=== PATIENT | male | born 1945 | race Caucasian/White ===

== ENCOUNTER 2019-08-18 13:05 | Outpatient (CLI) | payer MEDICARE, SELFPAY ==
--- NOTE | 2019-08-18 13:09 | CT_ITS ---
WS: [id number] CT LUNG CANCER SCREENING DLP: 87.5 mGy.cm DIvol: 2.43 mGy CLINICAL INFORMATION SCREENING VISIT: Baseline COMPARISON: None available. FINDINGS Diagnostic quality: Satisfactory Comments: None. Lung Nodules: Anterior RIGHT lower lobe slightly spiculated 6 mm pulmonary nodule with adjacent groun dglass attenuation. Image 313 of series 3. No additional suspicious nodules. No endobronchial lesions . There is a small amount of debris in the proximal RIGHT lower lobe bronchus. Lungs: Benign granuloma 8 mm RIGHT lower lobe. Mild biapical pleural thickening and scarring. Heart: Heart is normal size. Prior aortic valve replacement. There is extensive calcification in the [place] coronary arteries. Other findings: Atherosclerosis thoracic aorta. Small benign mediastinal and hilar lymph nodes. Pulmo nary artery size is normal. Small hiatal hernia. Mild increase in thoracic kyphosis. CT/CT lung screening [id number] IMPRESSION: LUNG-RADS: 3-Probably Benign FOLLOW UP: 6 Month LDCT
== END 2019-08-18 13:06 | disposition home or self-care (01) ==
LOC: CT 13:06
PROVIDERS: PCP Internal Medicine; Visit Provider Internal Medicine
DX: Z12.2 Encounter for screening for malignant neoplasm of respiratory organs (principal); F17.218 Nicotine dependence, cigarettes, with other nicotine-induced disorders
CPT/HCPCS: G0297

== ENCOUNTER 2019-12-15 12:01 | Outpatient (CLI) | payer MEDICARE, SELFPAY ==
--- NOTE | 2019-12-15 12:07 | CT_ITS ---
WS: [id number] CT ABDOMEN PELVIS TECHNIQUE: Contrast-enhanced CT of the abdomen and pelvis with coronal and sagittal reformatted image s. CLINICAL INFORMATION: GENERALIZED ABDOMINAL PAIN COMPARISON: None. DLP: 562.[address] scans at [facility] use at least one of these dose optimization techniques: automat ed exposure control; mA and/or kV adjustment per patient size (includes targeted exams where dose is matched to clinical indication); or iterative reconstruction. FINDINGS: Mild diffuse fatty infiltration liver. Normal portal vein and splenic vein. Normal gallbladder. Adren al glands are normal. Normal renal parenchymal enhancement. No hydronephrosis. Small right renal cyst measuring 8 mm. Lung bases are well aerated. Noncalcified nodule right lower lobe measuring 4 mm. No rmal GE junction. Normal pancreas. Normal spleen. Small splenule. Adrenal glands are normal. Prominen t heterogeneously enhancing prostate measuring 3.9 x 5.1 CM. Sigmoid diverticulosis. No evidence of acute diverticulitis. No evidence of small or large bowel obst ruction. No pelvic lymphadenopathy. No inguinal lymphadenopathy. Dense aortic calcification. Proximal renal artery calcification. Normal caliber abdominal aorta. Normal lumbar spine. CT/CT abdomen pelvis w con* [id number] IMPRESSION: 1. No evidence of small or large bowel obstruction. 2. Sigmoid diverticulosis. No evidence of acute diverticulitis. 3. Heterogeneously enhancing enlarged prostate. Recommend correlation PSA. 4. Dense aortic calcification. No aneurysm. 5. Mild diffuse fatty infiltration liver. 6. No hydronephrosis in either kidney. 7. No abdominal or pelvic lymphadenopathy. 8. Noncalcified nodule right lower lobe laterally measuring 4 mm.
[2019-12-15 14:05] LABS: Blood Urea Nitrogen 18 mg/dL (8-23)
[2019-12-15] MEDS: iodixanol 320 mg/mL 100mL Btl IV (14:13)
[2019-12-15] MEDS: iohexol 300 mg/mL 50 mL Btl PO (14:13)
== END 2019-12-15 12:02 | disposition home or self-care (01) ==
LOC: CT 12:04
PROVIDERS: PCP Internal Medicine; Visit Provider Internal Medicine
DX: R10.84 Generalized abdominal pain (principal); K57.30 Diverticulosis of large intestine without perforation or abscess without bleeding; N40.0 Benign prostatic hyperplasia without lower urinary tract symptoms; I70.0 Atherosclerosis of aorta; K76.0 Fatty (change of) liver, not elsewhere classified; R91.1 Solitary pulmonary nodule
CPT/HCPCS: 36415; 74177; 82565; 84520

== ENCOUNTER 2019-12-15 12:06 | Outpatient (CLI) | payer MEDICARE, SELFPAY ==
--- NOTE | 2019-12-15 14:15 | USCV_ITS ---
Luisa Walters Age: 74 Gender: M : 1945 Exam Date: 12/15/2019 12:41 Ordering Phys: Kavon Irwin MD ([email or web address]) Technologist: Neri Phma [place]am [place] [facility] [place]: MURMUR Risk Factors: None Previous Vascular Surgery: None Right Brachial BP: / Left Brachial BP: / Right Left Velocity (cm/s) Spectral Plaque Velocity (cm/s) Spectral Plaque Syst/Diast Broadening Syst/Diast Broadening 66.20/ 16.50 Prox CCA 35.30 / 8.80 75.00/ 20.90 Mid CCA 33.70 / 10.40 89.30/ 19.80 Hetro Distal CCA 42.00 / 10.40 Hetro 209.10/50.30 Hetro Prox ICA 185.80/ 59.70 Hetro 273.40/68.40 Hetro Mid ICA 608.00/ 248.30 Hetro 232.30/58.70 Distal ICA 495.10/ 202.20 Hetro 203.50 ECA 258.30 3.06 ICA/CCA 14.48 Antegrade Vertebral Antegrade 29.00/ 7.50 cm/s 75.60/ 24.20 cm/s Bi Subclavian Bi 144.4 145.5 0 0 FINDINGS Moderate to heavy heterogeneous plaques of the right bifurcation and internal carotid artery Heavy heterogeneous plaques at the left bifurcation and internal carotid artery Mild diffuse plaques in the common carotid arteries bilaterally Antegrade flow in the vertebral arteries bilaterally Elevated Doppler velocities in the external carotid arteries bilaterally CONCLUSIONS 1. Moderate to heavy heterogeneous plaques of the right bifurcation and internal carotid artery with velocity elevation consistent with 50-79% stenosis. 2.Heavy heterogeneous plaques at the left bifurcation and internal carotid arterywith velocity elevation consistent with 80-99% stenosis. 3.Elevated velocity in the external carotid arteries bilaterally, suggestive of hemodynamically significant stenosis. 4. The internal carotid arteries appears to be diffusely diseased bilaterally Compared to the study from 08/05/2014, there is significant worsening of the stenosis bilaterally Dr Kavon Irwin MD [facility] (Electronically Signed) Final Date: 16 December 2019 09:05 S
== END 2019-12-15 12:07 | disposition home or self-care (01) ==
PROVIDERS: PCP Internal Medicine; Visit Provider Internal Medicine Cardiovascular Disease
DX: I65.23 Occlusion and stenosis of bilateral carotid arteries (principal)
CPT/HCPCS: 93880

== ENCOUNTER 2019-12-24 12:46 | Outpatient (CLI) | payer MEDICARE, SELFPAY ==
--- NOTE | 2019-12-24 13:00 | CT_ITS ---
WS: [id number] CTA HEAD AND NECK TECHNIQUE: Contrast enhanced CTA of the head and neck with coronal and sagittal reformatted images an d maximum intensity projection (MIP) images. NASCET criteria utilized. CLINICAL INFORMATION: severe carotid artery stenosis COMPARISON: Ultrasound December 15, 2019 DLP: 2010.[address] scans at [facility] use at least one of these dose optimization techniques: automat ed exposure control; mA and/or kV adjustment per patient size (includes targeted exams where dose is matched to clinical indication); or iterative reconstruction. FINDINGS: RIGHT: Right common carotid artery is patent. Moderate calcified atheromatous disease right carotid b ulb extending into the ICA. Right ICA stenosis measures approximately 46%. LEFT: Left common carotid artery is patent. Dense calcified atheromatous disease left carotid bulb ex tending into the ICA. Left ICA demonstrates high-grade proximal stenosis with a tiny residual lumen m easuring 0.8 mm. Left ICA stenosis measures 82%. Left ICA is patent to the skull base. INTRACRANIAL CTA: Both vertebral arteries are hypoplastic/occluded proximally. Small amount of flow in the left mid [place]yland tebral artery and bilateral flow in the distal vertebral arteries. Distal vertebral arteries terminat e in the posterior inferior cerebellar arteries. Dominant anterior circulation. Tiny hypoplastic basi lar artery. Normal vascularity to the HEAD OF CYTOGENETICS territory bilaterally. Both ICAs are patent at the skull base. Cavernous carotid atheromatous disease. Patent anterior commu nicating artery. Normal vascularity to the FLORA and MCA territories bilaterally. No evidence of high-g rade proximal stenosis or aneurysm. Paranasal sinuses are well aerated. Mastoid air cells are well aerated. Mild small vessel changes. Mo derate parenchymal volume loss. No extra-axial fluid collections. Lung apices are well aerated. Aorti c arch calcification. Mild spondylitic changes cervical spine. CT/CT angio headneck* [id number] IMPRESSION: 1. High-grade left ICA stenosis approximately 7 mm distal to the bifurcation m easuring 82%. Tiny residual lumen. Left ICA is patent to the skull base. Dense calcified atheromatous disease left carotid bulb. 2. Moderate calcified atheromatous disease right carotid bulb with 46% proxima l ICA stenosis. 3. Both vertebral arteries are hypoplastic with no significant flow proximally . Reconstitution mid left vertebral artery and distal right vertebral artery wi th dominant anterior circulation. Both vertebral arteries terminate in the post erior inferior cerebellar arteries. Hypoplastic basilar artery. 4. Intracranial CTA is otherwise normal. No high-grade proximal stenosis or an eurysm. 5. Mild small vessel changes with moderate parenchymal volume loss on the nonc ontrast imaging.
[2019-12-24] MEDS: iodixanol 320 mg/mL 100mL Btl IV (13:24)
== END 2019-12-24 12:47 | disposition home or self-care (01) ==
LOC: RADWPI 12:49
PROVIDERS: PCP Internal Medicine; Visit Provider Internal Medicine Cardiovascular Disease
DX: I65.23 Occlusion and stenosis of bilateral carotid arteries (principal)
CPT/HCPCS: 70496; 70498; Q9967

== ENCOUNTER → 2020-01-12 07:48 | Outpatient (BNVA) | payer MEDICARE, SELFPAY | PROVIDERS: PCP Internal Medicine; Referring Provider Internal Medicine; Visit Provider Urology | DX: N40.1 Benign prostatic hyperplasia with lower urinary tract symptoms (principal); R97.20 Elevated prostate specific antigen [PSA] | CPT/HCPCS: 81003 ==

== ENCOUNTER 2020-03-02 13:37 | Day surgery (SDC) | payer MEDICARE, SELFPAY | END 2020-03-02 15:00 | disposition home or self-care (01) | LOC: OPS 12-08 14:58 | PROVIDERS: PCP Internal Medicine; Visit Provider Thoracic Surgery (Cardiothoracic Vascular Surgery) | DX: Z01.818 Encounter for other preprocedural examination (principal) | CPT/HCPCS: 87635 ==

== ENCOUNTER 2020-03-08 08:34 | Inpatient (IN) | payer MEDICARE, SELFPAY ==
[2020-03-02 11:32] VITALS: BMI 24.3
[2020-03-02 12:22] LABS: Add Urine Microscopic? NO; Basophils # 0.1 10^3/uL (0.0-0.1); Basophils % 0.9 %; Eosinophils # 0.3 10^3/uL (0.0-0.8); Eosinophils % 3.9 %; Hematocrit 41.8 % (42.0-52.0); Hemoglobin 14.2 g/dL (11.7-16.6); Lymphocytes # 1.9 10^3/uL (0.8-4.8); Lymphocytes % 21.8 %; Mean Corpuscular Hemoglobin 32.4 pg (28.0-34.0); Mean Corpuscular Volume 95.4 fL (80-94); Mean Platelet Volume 9.5 fL (7.4-10.4); Monocytes # 0.9 10^3/uL (0.2-0.9); Monocytes % 10.6 %; Neutrophils # 5.46 10^3/uL (1.8-7.7); Neutrophils % 62.6 %; Nucleated Red Blood Cells % 0 %; Platelet Count 248 10^3/cmm (130-400); Red Blood Count 4.38 10^6/uL (4.1-5.3); Red Cell Distribution Width 11.5 % (12.1-15.1); White Blood Count 8.7 10^3/uL (4.0-10.0)
[2020-03-02 12:33] LABS: Bilirubin Urine Neg (Negative); Blood Urine Neg (Negative); Glucose Urine UA Norm (Normal); Ketones Urine Negative (Negative); Leukocyte Esterase Urine Negative (Negative); Nitrate Urine Negative (Negative); Protein Urine Neg (Negative); Urine Appearance Clear (CLEAR); Urine Color Straw (Yellow); Urobilinogen Urine Norm (Negative); pH Urine 7 (5-7)
[2020-03-02 12:37] LABS: Anion Gap 14.5 (5-19); Blood Urea Nitrogen 19 mg/dL (8-23); Calcium 10.1 mg/dL (8.5-10.5); Carbon Dioxide 26 mmol/L (22-29); Chloride 97 mmol/L (98-107); Glucose 130 mg/dL (65-115); Osmolality Calculated 280 mOsm/kg (285-295); Potassium 4.5 mmol/L (3.5-5.1); Sodium 133 mmol/L (136-145)
--- NOTE | 2020-03-02 12:40 | P.ANESASSM_ITS ---
Pre-Anesthetic Assessment Pre-Anesthetic Assessment: Height/Weight: Height 1.73 m Weight 72.575 kg Preop Diagnosis: Left carotid artery stenosis Proposed Procedure: Operation Date: 03/08/20 07:00 Proposed Procedures p Carotid Endarterectomy(Left) - Zane Duarte MD Familial anesthetic complications: None Social: Social History: Tobacco Exam: Pre-Anes Outpt Exam: alert, oriented x 3, clear to auscultation bilaterally and regular rate & rhythm Airway: Cervical ROM: WNL MP: 3 Dentition: Chipped (bottom and top) and Other (missing) CV/HEM: CV/HEM: HTN Comments: aortic valve replaced twice - last time 2015 Metabolic: Metabolic: DM and Hyperlipidemia Anesthetic Plan: ASA status: 4 Anesthesia: General Other: A- line Risk of > 500 ml blood loss (7ml/kg in children): No PFSH Anesthesia PFSH: Medical History ASHD (arteriosclerotic heart disease) BPH loc w urin obs/LUTS Carotid stenosis, bilateral COPD (chronic obstructive pulmonary disease) Diabetes Elevated PSA 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 Mother , at age 80 No problems noted. Other Diabetes Social History Smoking and tobacco status: current every day smoker Alcohol intake: never Marital status: Current occupational status: retired History of recent travel: No Data Anesthesia CBC & Chem 7: 03/02/20 12:05 03/02/20 12:05 Other Labs: Laboratory Results - last 48 hr 03/02/20 03/02/20 03/02/20 12:05 12:05 12:05 WBC 8.7 RBC 4.38 Hgb 14.2 Hct 41.8 L MCV 95.4 H MCH 32.4 MCHC 34.0 RDW 11.5 L Plt Count 248 MPV 9.5 Neut % (Auto) 62.6 Lymph % (Auto) 21.8 [place] % (Auto) 10.6 Eos % (Auto) 3.9 Baso % (Auto) 0.9 Neut # (Auto) 5.46 Lymph # (Auto) 1.9 [place] # (Auto) 0.9 Eos # (Auto) 0.3 Baso # (Auto) 0.1 Nucleated RBC % (auto) 0 Nucleated RBCs # 0.0 PT 13.50 INR 1.00 Sodium Potassium Chloride Carbon Dioxide Anion Gap BUN Creatinine GFR Calculation Glucose Calculated Osmolality Calcium Urine Color Straw Urine Appearance Clear Urine pH 7 Ur Specific [place] 1.010 Urine Protein Neg Urine Glucose (UA) Norm Urine Ketones Negative Urine Blood Neg Urine Nitrate Negative Urine Bilirubin Neg Urine Urobilinogen Norm Ur Leukocyte Esterase Negative 03/02/20 12:05 WBC RBC Hgb Hct MCV MCH MCHC RDW Plt Count MPV Neut % (Auto) Lymph % (Auto) [place] % (Auto) Eos % (Auto) Baso % (Auto) Neut # (Auto) Lymph # (Auto) [place] # (Auto) Eos # (Auto) Baso # (Auto) Nucleated RBC % (auto) Nucleated RBCs # PT INR Sodium 133 L Potassium 4.5 Chloride 97 L Carbon Dioxide 26 Anion Gap 14.5 BUN 19 Creatinine 1.1 GFR Calculation Not Reportable Glucose 130 H Calculated Osmolality 280 L Calcium 10.1 Urine Color Urine Appearance Urine pH Ur Specific [place] Urine Protein Urine Glucose (UA) Urine Ketones Urine Blood Urine Nitrate Urine Bilirubin Urine Urobilinogen Ur Leukocyte Esterase Cardiac Studies: No Data to Display
--- NOTE | 2020-03-08 | SCC_ITS ---
Procedure Done: 1. Aborted right carotid endarterectomy 2. Right internal jugular access with temporary pacemaker implantation 26.6 seconds of fluoroscopic guidance, for a cumulative dose of 4.77 mGy, was provided to Dr. Duarte by the radiology department. C-arm images of the chest were saved for the patient's permanent record. XAVIERD
--- NOTE | 2020-03-08 05:44 | XRR_ITS ---
PROCEDURE INFORMATION: Exam: XR Chest, 2 Views Exam date and time: 03/08/2020 6:23 AM Age: 74 years old Clinical indication: Pre-operative exam; Cardiovascular screening and respiratory screening exam; Prior surgery; Surgery type: Heart; Additional info: Preop for carotid endarterectomy TECHNIQUE: Imaging protocol: XR of the chest Views: 2 views. COMPARISON: CR Chest 2 views* [id number] 04/10/2018 10:59 AM FINDINGS: Lungs: Tiny benign granulomas are present in the right base. There are no acute pulmonary infiltrates. Pleural space: Unremarkable. No pleural effusion. No pneumothorax. Heart/Mediastinum: The patient has undergone aortic valve replacement. The heart is not enlarged. There is calcification of the aorta. Bones/joints: Unremarkable. XR/XR chest 2V* [id number] IMPRESSION: No significant cardiopulmonary abnormality.
[2020-03-08 06:11] VITALS: BP 163/70; PULSE 61; RESP 18; TEMP 36.1; O2SAT 96
[2020-03-08 06:17] LABS: Glucose Point of Care 215 mg/dL (70-110)
--- NOTE | 2020-03-08 06:28 | PM.HP ---
Providers/Chief Complaint Primary Care Provider: Annabel Medina MD Chief Complaint: Carotid Stenosis History of Present Illness Luisa Walters is a 74 year old male whom I last saw in clinic on January [address] Irwin for evaluation of bilateral carotid disease. He has had prior aortic valve surgery at the [facility] in 2006 and subsequent redo valve surgery in 2016 at [facility]. He has been followed by Dr. Irwin for quite some time and is noted to have bilateral carotid bruits. Subsequent carotid duplex study of December 14 suggested high-grade velocities bilaterally. This prompted a CTA of the neck which was performed back in December 23. There was an 82% left ICA stenosis and a 46% right ICA stenosis, though visually, both stenoses appeared to be more substantial, particular given the elevated carotid velocities by duplex study. He is asymptomatic. He is a heavy tobacco user and continues to smoke unabated. Recommendation concerning left carotid endarterectomy as a prophylactic measure to reduce the statistical increased risk for spontaneous CVA related to his high-grade lesion was frankly discussed. He has conferred with his daughter, in [place]. He does wish to proceed with surgery and presents today for planned procedure. Review of Systems Const: Denies: fever(s), chills, change in appetite, change in weight, fatigue or night sweats Eyes: Denies: change in vision or blurry vision ENMT: Denies: odynophagia or hoarseness Card: Reports: dyspnea on exertion; Denies: chest pain, palpitations, irregular heart rhythm or edema Resp: Denies: dyspnea or productive cough GI: Denies: abdominal pain, nausea, vomiting, dysphagia, heartburn or change in bowel habits : Denies: difficulty urinating, dysuria, urinary frequency, urinary urgency or urinary hesitancy Musc: Reports: back pain Skin/Breast: Denies: rash Neuro: Denies: headache(s), numbness in extremities, weakness in extremities or sensory changes Psych: Denies: anxiety, depression or change in appetite Endo: Denies: polyuria, polydipsia or cold intolerance [place]/Lymph: Reports: easy bruising and easy bleeding Medications/Allergies Home Medications Medication Instructions Recorded Confirmed Last Taken Type aspirin 81 mg tablet,delayed 162 mg PO DAILY tab 05/28/19 03/08/20 03/08/20 History release glyburide 2.5 mg tablet 2.5 mg PO DAILY 05/28/19 03/08/20 03/07/20 History multivitamin 1 tab PO DAILY 05/28/19 03/08/20 03/07/20 History omega-3 fatty acids 1,000 mg 1,000 mg PO DAILY 05/28/19 03/08/20 03/07/20 History capsule amlodipine 10 mg tablet 10 mg PO DAILY #90 tab 07/29/19 03/08/20 03/08/20 Rx carvedilol 25 mg tablet 25 mg PO BID #90 tab 09/22/19 03/08/20 03/08/20 04:30 Rx simvastatin 20 mg tablet 20 mg PO DAILY #90 tab 12/01/19 03/08/20 03/07/20 Rx tamsulosin 0.4 mg capsule 0.4 mg PO BID #60 cap 01/12/20 03/08/20 03/07/20 Rx chlorthalidone 25 mg tablet See Rx Instructions .ROUTE 02/17/20 03/08/20 03/07/20 Rx .COMPLEX #90 tablet hydralazine 50 mg PO DAILY 03/02/20 03/08/20 03/07/20 History lisinopril 40 mg PO DAILY 03/02/20 03/08/20 03/08/20 History Allergies Allergy/AdvReac Type Severity Reaction Status Date / Time diltiazem Allergy Unknown unknown Verified 01/12/20 07:41 influenza virus vaccine Allergy Unknown unknown Verified 01/12/20 07:41 tvalpolly- PFSH Acute PFSH: Medical History ASHD (arteriosclerotic heart disease) BPH loc w urin obs/LUTS Carotid stenosis, bilateral COPD (chronic obstructive pulmonary disease) Diabetes Elevated PSA 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 Mother , at age 80 No problems noted. Other Diabetes Social History Smoking and tobacco status: current every day smoker Alcohol intake: never Marital status: Current occupational status: retired History of recent travel: No Vitals/I&O/Wt Last Vital Signs Temp 97.0 F L 03/08/20 06:11 Pulse 61 03/08/20 06:11 Resp 18 03/08/20 06:11 BP 163/70 03/08/20 06:11 Pulse Ox 96 03/08/20 06:11 Physical Exam Const: COMMON NORMALS: patient oriented x3 and alert ORIENTATION/CONSCIOUSNESS: Yes oriented to person, Yes oriented to place and Yes oriented to time HENMT: COMMON NORMALS: normocephalic HEAD & SCALP: normocephalic Neck/C-Spine: COMMON NORMALS: full ROM, supple and no JVD GENERAL: Yes trachea midline CAROTIDS: Yes bruit positive bilateral (High-pitched) CERVICAL SPINE: Yes cervical ROM normal Chest: COMMONS NORMALS: normal inspection of the chest (Well-healed sternotomy incision. Sternum stable.) and normal palpation of entire chest wall CHEST: Yes Symmetrical chest wall rise Resp: COMMON NORMALS: normal respiratory effort, No use of accessory muscles, clear to auscultation bilaterally and percussion normal EFFORT & INSPECTION: Yes able to speak in complete sentences and Yes symmetric chest movement AUSCULTATION: clear to auscultation bilaterally PERCUSSION: percussion normal Cardio: COMMON NORMALS: no JVD, regular rate, regular rhythm, S1 normal heart sound present, S2 normal heart sound present, No gallops present (Cardio), No murmurs present (Cardio), No rub (Cardio) and Peripheral pulses 2+ throughout JUGULAR VENOUS DISTENTION: no JVD RATE: regular rate RHYTHM: regular rhythm HEART SOUNDS: S1 normal heart sound present and S2 normal heart sound present PERIPHERAL PULSES: radial pulses present positive bilateral Neuro: COMMON NORMALS: patient oriented x3, no focal motor deficits and no sensory deficits noted SENSORIUM/ORIENTATION: Yes alert, Yes oriented to person, Yes oriented to place and Yes oriented to time GAIT: Yes Normal gait present Data : 03/02/20 12:05 03/02/20 12:05 A&P Assessment and plan (1) Carotid stenosis, bilateral: 74-year-old gentleman with a long and heavy history tobacco use and prior aortic valve surgery x2 with high-grade left carotid stenosis of at least 82% by CTA. I have personally reviewed the duplex and CTA studies. Recommendation for prophylactic left carotid endarterectomy to reduce his statistical increased risk for spontaneous CVA was carefully discussed. Indication for surgery in relation to his age and prior valve surgery also reviewed. He has conferred with his daughter from [place]. He does wish to proceed. Details and risks of the procedure were carefully and frankly discussed. Risks reviewed include the possibility of , stroke, heart attack, major bleeding, infection, pneumonia, temporary or permanent hoarseness, deviation of the tongue, swallowing difficulties, organ failure, failure to benefit, prolonged hospital stay, pain after the procedure, need for further procedures, inability to complete the procedure, and possible need for long-term followup. All questions were answered. Appropriate consents have been provided for review and signature. Postoperatively, we will plan for early convalescence in the ICU. Status: Acute Attestations Medical Necessity Statement*: High-grade left ICA stenosis Time Spent in Patient Care: 16 - 35 minutes Coding Level of Care Code Acute Top Hat Body Maker for Lester Mora Diagnoses Carotid stenosis, bilateral I65.23
[2020-03-08] MEDS: sodium chloride 0.9% 1,000 ML 30 ML IV (06:29)
--- NOTE | 2020-03-08 06:47 | P.ANESUD_ITS ---
Pre-Anesthetic Update Pre-Anesthetic Assessment: Date of Surgery/Procedure: 03/08/20 Preop Susan gnosis: Left carotid artery stenosis Proposed Procedure: Operation Date: 03/08/20 07:00 Proposed Procedures p Carotid Endarterectomy(Left) - Zane Duarte MD Any changes to Pre-Anesthetic Assessment?: No Last Intake: Intake Last Liquid Date 03/07/20 Last Liquid Time 18:30 Last Solid Date 03/07/20 Last Solid Time 18:30 Labs Last 48hrs: Laboratory Results - last 48 hr 03/08/20 03/08/20 05:49 06:06 POC Glucose 215 H Blood Type O Positive Rho(D) Type Positive Antibody Screen Negative Crossmatch See Detail Vitals: Temperature 97.0 F L 03/08/20 06:11 Temperature Source Temporal Artery S can 03/08/20 06:11 Pulse Rate 61 03/08/20 06:11 Pulse Rhythm 03/08/20 06:11 Pulse Strength 3+ Normal 03/08/20 06:11 Respiratory Rate 18 03/08/20 06:11 Blood Pressure 163/70 03/08/20 06:11 Blood Pressure Heather n 101 03/08/20 06:11 Pulse Oximetry 96 03/08/20 06:11 Oxygen Delivery Me thod 03/08/20 06:11 Exam: Pre-Anes Outpt Exam: alert, oriented x 3 and regular rate & rhythm Additional Exam Findings (including area of procedure): BBS reduced, rhonchi on left Bilateral carotic bruits Cardiac Studies: No Data to Display
[2020-03-08] MEDS: vancomycin 1,000 MG SDV 1000 MG IRRIGATION (07:18)
[2020-03-08] MEDS: heparin,porcine 1,000 unit/mL INJ 1 mL 1000 UNIT IRRIGATION (07:18)
--- NOTE | 2020-03-08 07:24 | SUR.OPER ---
0720 - Pt's daughter Rylie notified of surgery start via her cell phone.
--- NOTE | 2020-03-08 07:30 | ANES.PROC ---
Anesthesia Procedures Procedure/Date: 03/08/20 Arterial Line: Time Out Performed: Yes Consent: requested by attending/covering physician, from patient, risks and benefits reviewed and patient agrees to proceed Size (Gauge): 20 Technique Used: guide wire technique Post-Procedure: dry sterile dressing placed Patient Tolerated Procedure: well Complications: none Site: right and radial
[2020-03-08] MEDS: lidocaine 1% INJ 20 mL XX (08:02)
[2020-03-08 08:18] LABS: ABG PCO2 48.4 mmHg (35-45); ABG PH Result 7.23 (7.35-7.45); Alveolar-Arterial Oxygen Gradi 49.2 mmHg (5-10); Arterial Blood Gas Hematocrit 38.7 % (42-52); Base Excess ABG -7.4 mmol/L (-2.0-2.0); Blood Gas Allen Test Pos; Blood Gas Operator Identificat BD; Blood Gas Sample Site Radial, left; Blood Gas Sample Type Arterial; Carboxyhemoglobin 2.8 %THgb (0.4-20.1); HCO3 ABG 20.2 mmol/L (22-26); HGB O2 Sat 95.4 % (95-100); Ionized Calcium Level - ABG 1.1 mmol/L (1.1-1.4); Methemoglobin 1.4 % (0.4-1.5); Oxygen Device VENT; Oxygen Saturation ABG 99.6; Potassium Level - ABG 4.6 mmol/L (3.5-5.0); Total Hemoglobin 12.6 g/dL (14-18)
--- NOTE | 2020-03-08 08:31 | SC_ITS ---
WS: [id number] INTRAOPERATIVE TECHNIQUE: 1 Spot fluoroscopic images for intraoperative purposes. FLUOROSCOPY TIME: 26.6 seconds CLINICAL INFORMATION: temp pacemaker insertion COMPARISON: None. FINDINGS: Sternotomy. Fluoroscopy used for temporary pacemaker insertion. SC/C-arm FL for CVA [id number] IMPRESSION: Images obtained for intraoperative purposes.
--- NOTE | 2020-03-08 08:57 | ANES.PROC ---
Anesthesia Procedures Procedure/Date: 03/08/20 Central Venous Insert: Central Venous Line: RIJ introducer Time Out Performed: Yes Consent: requested by attending/covering physician and emergency procedure Central Line: New Anesthesia monitors: pulse oximetry, EKG, BP cuff and oxygen Vein cannulated: right internal jugular Ultrasound used: to identify patency to vessel and to visualize needle entry to vein Post procedure: Other (Fluoro) Additional Comments: GRANT 9fr introducer for transvenous pacemaker insertion
[2020-03-08 09:00] VITALS: BP 130/50; PULSE 80; O2SAT 96
[2020-03-08 09:10] LABS: ABG PCO2 55.7 mmHg (35-45); ABG PH Result 7.22 (7.35-7.45); Arterial Blood Gas Hematocrit 34.7 % (42-52); Base Excess ABG -5.5 mmol/L (-2.0-2.0); Blood Gas Allen Test Pos; Blood Gas Operator Identificat BD; Blood Gas Sample Site ALINE; Blood Gas Sample Type Arterial; Carboxyhemoglobin 1.9 %THgb (0.4-20.1); HCO3 ABG 22.6 mmol/L (22-26); HGB O2 Sat 95.3 % (95-100); Ionized Calcium Level - ABG 1.3 mmol/L (1.1-1.4); Methemoglobin 1.3 % (0.4-1.5); Oxygen Device VENT; Oxygen Saturation ABG 98.4; Potassium Level - ABG 4.9 mmol/L (3.5-5.0); Total Hemoglobin 11.3 g/dL (14-18)
--- NOTE | 2020-03-08 09:14 | PC.CHAP ---
Pastoral Care Encounter/Spiritual Assessment Type of Contact [] Declined out patient therapist visit [] Patient/Family/Request visit [] Outpatient visit [] Follow-up visit [] Physician referral [] Code/Alert [] Routine visit [] Staff referral [] Actively dying [] Patient sleeping [] Family support [] [] Out of room [] Palliative care [] [] Receiving care in room [] Pre-surgical visit [] Trauma [] Long length of stay [x] ICU visit [] Other: Relational/Emotional Strength [] Patient feels connected with others/family/visitors/staff [] Distress [] Loneliness/isolation [] Abandonment Spirituality of Patient [] Person of Leora [] Attends Yazidi of their Leora [] Believes in Prayer [] Reads Bible or Buddhist materials [] There are Spiritual issues to be addressed Elevator Constructor Interventions [x] Prayer [] Active listening [] Non-anxious presence [] Spiritual/emotional support [] Crisis/trauma care [] Spiritual counseling [] Bereavement support [] Provided bereavement packet [] Provided Bible/devotional materials [] Provided toy/stuffed animal, coloring book to patient or family member [] Provided Communion [] Anointing/United [] Salvation [x] Completed spiritual assessment [] Other: Impact on Illness or Injury [] Angry [] Fearful [] Anxious [] Often cries [] Exhaustion [] Unable to work [] Unable to attend christian [] Unable to walk/stand [] Unable to read [] Unable to drive [] Unable to eat/drink [] Unable to sleep [] Unable to be with family [] Patient intubated [] Other: Summary Time spent with patient
--- NOTE | 2020-03-08 09:22 | P.OP_ITS ---
Operative Report Date of procedure: March 08, 2020 Pre-op Diagnosis: Left carotid artery stenosis Post-op diagnosis: other Post-op Diagnosis: 1. Left carotid artery stenosis 2. 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 Aborted right carotid endarterectomy 2. Right internal jugular access with temporary pacemaker implantation Implants: Right IJ temporary pacemaker Pathology: none sent Anesthesia: General Complications: Schedule right carotid endarterectomy was aborted mid procedure due to profound bradycardia and one episode of asystole resulting in need for close cardiac massage and resuscitation. Continued bradycardia for what appears to be heart block and hypotension unresponsive to chemical support. Condition: stable Disposition: ICU Brief History: Mr. Walters is a 74-year-old gentleman who is been followed carefully by Dr. Irwin for known cardiac disease. He has had aortic valve replacement in 2006 at [facility] and then redo aortic valve surgery in 2016 at [facility]. High-grade bilateral carotid bruits and subsequent duplex study revealed high velocities. This prompted a CTA which revealed an 82% highly calcific proximal left ICA stenosis and a 46% right ICA stenosis. He was referred to our service by Dr. Irwin to consider carotid endarterectomy to reduce his statistical increased risk for spontaneous CVA related to his high-grade left carotid lesion. Details the risk of surgery were carefully and frankly discussed. Appropriate consents reviewed and signed. Procedure: Mr. Walters was taken through the operating room theater where appropriate invasive lines were placed including a right radial arterial line. 2 large-bore IVs were established. Neuro monitoring system was established for vagus nerve and recurrent laryngeal nerve identification. He underwent general trach anesthesia without difficulty. His entire left side of his neck and chest wall were sterilely prepped and draped. After appropriate timeout, incision was made along the anterior border of the left cervical mastoid muscle care down to the platysma with cautery. Blunt dissection with Metzenbaum scissors was then performed as we continued dissection down to the carotid sheath. The vagus nerve was rapidly identified by use of neuro monitoring probe, and was situated roughly on the same plane and just lateral to the carotid artery. It was noted that with neuro monitoring probe stimulation, there was some bradycardia. This responded well to ephedrine initially, though became refractory. At 1 point during dissection bradycardia progressed to a point of actual asystole requiring chest compressions for approximately 20 to 30 seconds and chemical resuscitation for anesthesia to include epinephrine. He separately returned with what appeared to be an escape rhythm at between 30 and 40 bpm. At this juncture of the procedure, we had exposed the carotid artery at the bifurcation, including the common carotid artery, external carotid artery and internal carotid artery. Mr. Walters continued to have bradycardia with a maximal heart rate of 40 and the lowest heart rate into the upper 20s. I had conferred with my colleague, Dr. Irwin by phone as to the events of the procedure and the potential to abort. Despite anesthesia efforts at chemical support, we cannot elevate the heart rate above maximal 40 bpm with the majority of the time remaining in the mid 30s. At this time, I elected to abort the procedure and plan for temporary pacemaker implantation. The left neck wound was irrigated. Hemostasis confirmed. We had not clamped or opened the carotid artery. VESNA drain was placed connected to bulb suction. Wound was then closed in multiple layers of Vicryl suture with the skin being reapproximated in a subcuticular manner with 3-0 Monocryl suture. Sterile dressing was applied. His neck was then turned to the left and the right neck and chest wall were sterilely prepped and draped. Utilizing ultrasound guidance, right IJ was identified and engaged with an aspirating needle with subsequent placement of a guidewire. Dilator and sheath were then placed over the guidewire with removal of the guidewire and dilator. The Cordis sheath was then sewn into position. With fluoroscopy in position, temporary pacing wire was placed through the sheath and into position with excellent capture. Current pacing rate is 80 bpm. System was secured and sterile dressing was applied. Mr. Walters was then carefully awakened from anesthesia and extubated. He was transferred to the ICU bed and then to the ICU. I spoke with his daughter from [place], Rylie, as to the events of surgery. I will consult directly with Dr. Irwin for bedside evaluation and if he concurs, will recommend dual-chamber pacemaker implantation tomorrow afternoon. At a point in the future, if medically appropriate, I will refer Mr. Walters for consideration of carotid stenting.
[2020-03-08] MEDS: HYDROcodone-acetaminophen 5-325 mg Tablet 1 TAB PO ×3 (11:05→20:59)
[2020-03-08 12:08] LABS: Glucose Point of Care 231 mg/dL (70-110)
--- NOTE | 2020-03-08 12:39 | ANE.PACU2 ---
Inpatient post-anesthesia follow up: Airway intact: Yes Vital signs: Temperature 97.0 F Pulse Rate 80 Respiratory Rate 18 Blood Pressure 130/50 Pulse Oximetry 96 Oxygen Delivery Me thod Nasal Cannula Oxygen Flow Rate 10 Fraction of Inspir ed Oxygen Hydration adequate: Yes Nausea and vomiting: No Pain level: 3 Additional Comments: Intraop bradycardia to asystole (30s of CPR), recovered but cont'd with bradycardia, procedure abondoned and transvenous pacer inserted. Postop patient angry with situation, but stable in ICU.
--- NOTE | 2020-03-08 12:53 | PC.NURSE ---
Pt temporary pacemaker is in place and currently not needing it. Heart is beating without needed electrical. External pacer unhooked and put outside of room.
--- NOTE | 2020-03-08 13:32 | PC.RESP ---
Smoking Cessation and Pulmonary Rehab packet sent to patient.
--- NOTE | 2020-03-08 13:48 | PM.CONSULT ---
Providers/Reason For Consult Consulting Physican/Specialty*: TATIANNA Irwin MD/cardiology Reason for Consult*: Patient with bradycardia/prolonged pauses Attending Physician: Zane Duarte MD Primary Care Provider: Annabel Medina MD History of Present Illness History of Present Illness Luisa Walters is a 74 year old male who was recently found to have a high-grade stenosis in the left ICA of 80 to 99% by carotid Doppler examination. He had a 50 to 79% stenosis in the right ICA. He was undergoing an elective carotid endarterectomy by Dr. Duarte in the operating room today. Apparently during the procedure, while just doing the manipulations on the carotid artery, patient became extremely bradycardic. He had multiple episodes of bradycardia. One time he required brief CPR. His blood pressure also was running low with these episodes. For this reason, the procedure was aborted. He had a temporary pacemaker wire insertion through the right internal jugular vein. The carotid artery was not dissected. Patient is currently in the ICU. He appears to have a paced ventricular rhythm. According the patient, for the last few years, he has been having relatively slow heartbeat in the 60s. Even with activities, the heart rate goes up in the high 60s but never goes above 70. He feels weak and tired at that time. He was under the impression that this might be normal for him. He never had any unusual dizziness or syncopal episodes. He denies any chest pain at this point. This patient had aortic valve redo surgery in [address] [facility]. Prior to this, he had a bioprosthetic valve in 2006. Prior to the last aortic valve intervention, he had a cardiac catheterization which revealed mild diffuse coronary artery disease. 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 He is known to have high blood pressure and dyslipidemia. He has been fairly stable otherwise. Review of Systems Narrative: CONSTITUTIONAL: No fever or chills. EYES: No blurring of vision or other visual disturbances lately. ENT: No hoarseness of voice, auditory disturbances or sore throat. CARDIOVASCULAR: As mentioned above. RESPIRATORY: No significant cough. GASTROINTESTINAL: No hematemesis or melena. GENITOURINARY: No dysuria or hematuria. INTEGUMENTARY: No skin rashes or history of skin cancer. NEURO: No transient ischemic attacks or amaurosis. PSYCHIATRIC: No history of psychosis or major depression. HEMATOLOGIC: No bleeding disorders or significant anemia. ENDOCRINE: No history of polyuria or polydipsia. MUSCULOSKELETAL: No recent joint pain or swelling. ALLERGY/IMMUNOLOGY: As mentioned above. Meds/Allergies Home Medications and Allergies Home Medications Medication Instructions Recorded Confirmed Last Taken Type aspirin 81 mg tablet,delayed 162 mg PO DAILY tab 05/28/19 03/08/20 03/08/20 History release glyburide 2.5 mg tablet 2.5 mg PO DAILY 05/28/19 03/08/20 03/07/20 History multivitamin 1 tab PO DAILY 05/28/19 03/08/20 03/07/20 History omega-3 fatty acids 1,000 mg 1,000 mg PO DAILY 05/28/19 03/08/20 03/07/20 History capsule amlodipine 10 mg tablet 10 mg PO DAILY #90 tab 07/29/19 03/08/20 03/08/20 Rx carvedilol 25 mg tablet 25 mg PO BID #90 tab 09/22/19 03/08/20 03/08/20 04:30 Rx simvastatin 20 mg tablet 20 mg PO DAILY #90 tab 12/01/19 03/08/20 03/07/20 Rx tamsulosin 0.4 mg capsule 0.4 mg PO BID #60 cap 01/12/20 03/08/20 03/07/20 Rx chlorthalidone 25 mg tablet See Rx Instructions .ROUTE 02/17/20 03/08/20 03/07/20 Rx .COMPLEX #90 tablet hydralazine 50 mg PO DAILY 03/02/20 03/08/20 03/07/20 History lisinopril 40 mg PO DAILY 03/02/20 03/08/20 03/08/20 History Allergies Allergy/AdvReac Type Severity Reaction Status Date / Time diltiazem Allergy Unknown unknown Verified 01/12/20 07:41 influenza virus vaccine Allergy Unknown unknown Verified 01/12/20 07:41 tval,purif- Current Medications Current Medications Generic Name Dose Route Start Last Admin Trade Name Freq PRN Reason Stop Dose Admin Hydrocodone Bitart/Acetaminophen 1 tab 03/08/20 10:44 03/08/20 11:05 Hydrocodone-Acetaminophen 5-325 Mg Tablet PO 1 tab Q4H PRN Administration MODERATE PAIN Insulin Aspart 0 unit 03/08/20 12:00 03/08/20 12:03 Insulin Aspart 100 Unit/1 Ml SUBCUT 6 unit WM&BEDTIME DK Administration Protocol PFSH Acute PFSH: Medical History ASHD (arteriosclerotic heart disease) BPH loc w urin obs/LUTS Carotid stenosis, bilateral COPD (chronic obstructive pulmonary disease) Diabetes Elevated PSA Guillain-Boonton disease Hyperlipidemia Hypertension Smoking Surgical History Aortic valve replaced History of heart valve replacement Family History Father No problems noted. Mother , at age 80 No problems noted. Other Diabetes Social History Smoking and tobacco status: current every day smoker Alcohol intake: never Marital status: Current occupational status: retired History of recent travel: No Vitals/I&O/Wt Last Vital Signs Temp 97.0 F L 03/08/20 06:11 Pulse 80 03/08/20 09:00 Resp 18 03/08/20 06:11 BP 130/50 03/08/20 09:00 Pulse Ox 96 03/08/20 09:00 03/07/20 03/08/20 03/08/20 22:59 06:59 14:59 Intake Total 60 / 60 Output Total 775 / 775 Balance -715 / -715 Physical Exam Narrative: EXAM NARRATIVE: GENERAL: The patient is alert and oriented times three. Not in any acute distress. HEENT: No significant pallor, icterus or lymphadenopathy. Pupils are symmetrical. Oral cavity: There are no mucous membrane lesions. Funduscopic examination: The fundus is not visualized NECK: The left carotid endarterectomy site has a suction catheter. Transvenous temporary wire in the right internal jugular vein. RESPIRATORY: Chest is symmetrical. No intercostals muscle retraction or any accessory muscle activation. There is no chest wall tenderness. Breath sounds are heard bilaterally. No rales or rhonchi heard. No evidence of any consolidation. BREASTS: Deferred. HEART: The heart sounds are normal. No S3 or S4. ABDOMEN: No vessel pulsations or distention. No tenderness. No organomegaly appreciated. No abdominal bruit. Bowel sounds are normally heard. : Deferred. RECTAL: Deferred. LYMPHATIC: No lymphadenopathy noted in the neck or groin. EXTREMITIES: No edema or cyanosis. Peripheral pulses are palpable but weak bilaterally in the lower extremities. MUSCULOSKELETAL: No acute joint deformities or swelling SKIN: There are no significant scars or skin rash noted. NEUROPSYCHIATRIC: The patient is alert and oriented x3. Appears to be in a good mood. The higher functions are grossly within normal limits. No tremors or rigidity noted. Urinary Catheter Management^: Márquez: Cath Placed During This Visit: yes Urinary Catheter Date of Insertion: 03/08/20 Urinary Catheter Time of Insertion: 07:05 A&P Assessment and plan (1) Bradycardia, sinus, persistent, severe: I do not have any documentation of the rhythm strip. Based on Dr. Duarte's observation, patient had a prolonged sinus pauses and extreme bradycardias with a carotid manipulation. It apparently happened several times during the attempted carotid surgery. Patient has a history suggestive of chronotropic incompetence as well. In view of these, patient may benefit from a permanent pacemaker implantation. This was discussed the patient and his family in detail which they understood well and consented to proceed. Status: Acute (2) Chronotropic incompetence: The patient is chronotropic incompetence also is suggestive of some sinus santos dysfunction. Status: Acute (3) Carotid stenosis, bilateral: Patient requires skilled intervention. Dr. Duarte will be deciding on the timing and further management of this. Status: Acute (4) Aortic valve replaced: Valve function appears appropriate. We will continue on the current measures. Status: Acute (5) Hypertension: Blood pressure will be closely watched on telemetry. Antihypertensive medication will be optimized Status: Acute Qualifiers: Hypertension type: essential hypertension Qualified Code(s): I10 - Essential (primary) hypertension (6) Hyperlipidemia: May continue on the current medications. Status: Acute Qualifiers: Hyperlipidemia type: mixed hyperlipidemia Qualified Code(s): E78.2 - Mixed hyperlipidemia Additional A&P Information Thank you for the opportunity to evaluate this patient make these recommendations. Procedures Arterial Line Size (Gauge): 20 Coding Level of Care Code Acute Surgical Scrub Technologist for Chg Fwd History Detailed Exam Detailed Medical Decision Making Moderate Complexity Diagnoses Bradycardia, sinus, persistent, severe R00.1 Chronotropic incompetence I45.89 Carotid stenosis, bilateral I65.23 Aortic valve replaced Z95.2 Hypertension I10 Hypertension type: essential hypertension Hyperlipidemia E78.2 Hyperlipidemia type: mixed hyperlipidemia Time Spent (min) 55
[2020-03-08] MEDS: ceFAZolin 1,000 MG in sodium chloride 0.9% (plus) 50 ML 100 MG IV ×2 (15:55→22:08)
[2020-03-08] MEDS: mupirocin oint 22 gm 1 APPLIC NOSTRIL-B (15:56)
--- NOTE | 2020-03-08 18:00 | PC.NURSE ---
Spoke with Dr. Duarte to verify the removal of ART line and Márquez. New orders for sleep medication and Nicotine patch.
[2020-03-08] MEDS: tamsulosin 0.4 mg Capsule PO (18:45)
[2020-03-08 18:58] LABS: Glucose Point of Care 188 mg/dL (70-110)
[2020-03-08 20:10] LABS: Glucose Point of Care 181 mg/dL (70-110)
[2020-03-08] MEDS: temazepam 15 mg Capsule PO (20:59)
[2020-03-08 22:00] VITALS: PULSE 74
[2020-03-09] VITALS (73 sets, daily range): BP systolic 104–191; BP diastolic 42–132; PULSE 68–93; RESP 10–29; TEMP 36.5; O2SAT 91–98
--- NOTE | 2020-03-09 | SCC_ITS ---
Procedure Done: Dual-lead pacemaker implantation 134.6 seconds of fluoroscopic guidance, for a cumulative dose of 24.24 mGy, was provided to Dr. Duarte by the radiology department. C-arm images of the chest were saved for the patient's permanent record. [facility]
--- NOTE | 2020-03-09 00:42 | PC.NURSE ---
Patients telemetry monitoring is showing abnormal telemetry rhythm with wide QRS complexes. Internal pacemaker is in place and currently firing. Called RN Blanca water treatment plant supervisor to observe telemetry strip and look at pacer with this nurse and Evangelina RN. All nurses agreed rhythm looks abnormal but patients heart rate is WNL at 86 BMP, BP 140/65, non symptomatic, patient is resting with eyes closed and snoring, no s/s of distress. This nurse turned milliamps from 5 to 9 to obtain better capturing on telemetry. This nurse called Dr. Fahad beckman to update hospitalist on patients condition. No new orders received. Patient is scheduled for surgery tomorrow to follow up with permanent pacemaker insertion with Dr. Duarte.
--- NOTE | 2020-03-09 00:58 | ECG_ITS ---
[facility] Test Date: 2020-03-09 Pat Name: Luisa Walters Department: Room: ICU09 Gender: Male Senior Hydrogeologist: : 1945 Requested By: Zane Duarte Order Number: [id number] Hayes MD: Kavon Irwin M.D. Measurements Intervals [place] Rate: 87 P: [place]: QRS: 78 QRSD: 174 T: -82 QT: 433 QTc: 521 Interpretive Statements ELECTRONIC VENTRICULAR PACEMAKER ABNORMAL RHYTHM ECG Compared to ECG 04/01/2015 05:10:00 Sinus rhythm no longer present Left-axis deviation no longer present Left bundle-branch block no longer present Electronically Signed On 03-09-2020 21:43:57 CNC ROUTER OPERATOR by Kavon Irwin M.D. [id number]
[2020-03-09] MEDS: ceFAZolin 1,000 MG in sodium chloride 0.9% (plus) 50 ML 100 MG IV (05:55)
[2020-03-09] MEDS: lactated ringers 1,000 ML 125 ML IV ×4 (06:01→22:02)
--- NOTE | 2020-03-09 06:20 | P.PN_ITS ---
Subjective Subjective: Interval history: Postop day #1 status post left neck exploration and aborted carotid endarterectomy secondary to hypertensive and refractory bradycardia intraoperatively. Temporary pacing required for approximately 3 hours postop though appears that mostly he is now with a rate above pacemaker settings. Dr. Iwrin has evaluated and concur with recommendation for permanent pacemaker implantation. Low VESNA drain output overnight. Neurologically intact. Vitals/I&O/Wt Last Vital Signs Temp 97.0 F L 03/08/20 06:11 Pulse 87 03/09/20 06:10 Resp 16 03/09/20 06:10 BP 145/69 03/09/20 06:10 Pulse Ox 97 03/09/20 06:10 03/08/20 03/08/20 03/09/20 14:59 22:59 06:59 Intake Total 60 / 60 820 / 880 480 / 1360 Output Total 775 / 775 835 / 1610 350 / 1960 Balance -715 / -715 -15 / -730 130 / -600 Physical Exam Neck/C-Spine: COMMON NORMALS: supple OTHER: Surgical dressing dry. VESNA drain with low output. Resp: COMMON NORMALS: No use of accessory muscles and clear to auscultation bilaterally EFFORT & INSPECTION: Yes able to speak in complete sentences AUSCULTATION: clear to auscultation bilaterally Neuro: COMMON NORMALS: no focal motor deficits and no sensory deficits noted Urinary Catheter Management^: Márquez: Cath Placed During This Visit: yes, but has since been removed by the nurse Reason for Continuing Indwelling Catheter: Accurate Measurement of Urinary Output in Critically Ill Patients Urinary Catheter Date of Insertion: 03/08/20 Urinary Catheter Time of Insertion: 07:05 Date Urinary Catheter Removed: 03/08/20 Time Urinary Catheter Discontinued: 18:00 Data : 03/02/20 12:05 03/02/20 12:05 A&P Assessment and plan (1) Bradycardia, sinus, persistent, severe: Plan for dual-chamber pacemaker implantation this afternoon. Rationale carefully discussed with Mr. Walters and family. All are in agreement. Status: Acute (2) Carotid stenosis, bilateral: Pacemaker implantation, we will refer to our colleague, Dr. Luc Denise and Kitty to consider carotid stenting. Status: Acute Attestations Medical Necessity Statement*: Severe intraoperative bradycardia Time Spent in Patient Care: 16 - 35 minutes Procedures Arterial Line Size (Gauge): 20 Coding Level of Care Code Acute Java Lead Architect for Chg Fwd Diagnoses Bradycardia, sinus, persistent, severe R00.1 Carotid stenosis, bilateral I65.23
[2020-03-09 08:26] LABS: Glucose Point of Care 155 mg/dL (70-110)
[2020-03-09] MEDS: nicotine 21 mg Patch 1 PATCH TRANSDERMA (08:30)
[2020-03-09] MEDS: aspirin 81 mg EC Tablet 162 MG PO (08:31)
[2020-03-09] MEDS: HYDROcodone-acetaminophen 5-325 mg Tablet 1 TAB PO ×3 (08:31→21:37)
[2020-03-09] MEDS: tamsulosin 0.4 mg Capsule PO ×2 (08:31→17:47)
[2020-03-09] MEDS: pantoprazole DR 40 mg Tablet PO (08:32)
[2020-03-09] MEDS: atorvastatin 40 mg Tablet 20 MG PO (08:32)
[2020-03-09 12:14] LABS: Glucose Point of Care 137 mg/dL (70-110)
--- NOTE | 2020-03-09 15:29 | ANES.PAUD2 ---
Pre-Anesthetic Update Pre-Anesthetic Assessment: Date of Surgery/Procedure: 03/09/20 Preop Diagnosis: Left carotid artery stenosis Proposed Procedure: Operation Date: 03/08/20 07:00 Proposed Procedures p Carotid Endarterectomy(Left) - Zane Duarte MD Operation Date: 03/09/20 18:05 Proposed Procedures p Pacemaker Insertion(Not Applicable) - Zane Duarte MD Any changes to Pre-Anesthetic Assessment?: Yes Changes from Pre-Anesthetic Assessment: Case cancelled 03/08 during procedure secondary to bradycardia Last Intake: Intake Last Liquid Date 03/07/20 Last Liquid Time 18:30 Last Solid Date 03/07/20 Last Solid Time 18:30 Labs Last 48hrs: Laboratory Results - last 48 hr 03/08/20 03/08/20 03/08/20 05:49 06:06 08:10 Specimen Type Arterial Sample Site Radial, left ABG pH 7.23 L ABG pCO2 48.4 H ABG pO2 279.0 H ABG HCO3 20.2 L ABG O2 Saturation 99.6 ABG Base Excess -7.4 L Salvatore Test Pos A-a O2 Gradient 49.2 H Hematocrit 38.7 L Hgb O2 Saturation 95.4 Carboxyhemoglobin 2.8 Methemoglobin 1.4 Total Hemoglobin 12.6 L Sodium 135.0 Potassium 4.6 Glucose 250.0 H Ionized Calcium 1.1 O2 Delivery Device Vent FiO2 100.0 Skydiving Instructor ID Bd POC Glucose 215 H Blood Type O Positive Rho(D) Type Positive Antibody Screen Negative Crossmatch See Detail 03/08/20 03/08/20 03/08/20 09:00 11:51 18:54 Specimen Type Arterial Sample Site Yancy ABG pH 7.22 L ABG pCO2 55.7 H ABG pO2 245.0 H ABG HCO3 22.6 ABG O2 Saturation 98.4 ABG Base Excess -5.5 L Salvatore Test Pos A-a O2 Gradient Not Reportable Hematocrit 34.7 L Hgb O2 Saturation 95.3 Carboxyhemoglobin 1.9 Methemoglobin 1.3 Total Hemoglobin 11.3 L Sodium 136.0 Potassium 4.9 Glucose 259.0 H Ionized Calcium 1.3 O2 Delivery Device Vent FiO2 Skydiving Instructor ID Bd POC Glucose 231 H 188 H Blood Type Rho(D) Type Antibody Screen Crossmatch 03/08/20 03/09/20 03/09/20 19:56 08:23 12:04 Specimen Type Sample Site ABG pH ABG pCO2 ABG pO2 ABG HCO3 ABG O2 Saturation ABG Base Excess Salvatore Test A-a O2 Gradient Hematocrit Hgb O2 Saturation Carboxyhemoglobin Methemoglobin Total Hemoglobin Sodium Potassium Glucose Ionized Calcium O2 Delivery Device FiO2 Skydiving Instructor ID POC Glucose 181 H 155 H 137 H Blood Type Rho(D) Type Antibody Screen Crossmatch Vitals: Temperature 97.7 F 03/09/20 12:00 Temperature Source Axillary 03/09/20 12:00 Pulse Rate 78 03/09/20 14:00 Pulse Rhythm 03/09/20 08:00 Pulse Strength 3+ Normal 03/09/20 08:00 Respiratory Rate 19 H 03/09/20 12:00 Respiratory Effort Non-Labored 03/09/20 08:00 Respiratory Depth Normal 03/09/20 08:00 Blood Pressure 166/69 03/09/20 12:00 Blood Pressure Heather n 101 03/09/20 12:00 Pulse Oximetry 97 03/09/20 12:00 Oxygen Delivery Me thod 03/09/20 12:00 Oxygen Flow Rate 2 03/09/20 08:38 Fraction of Inspir ed Oxygen 2 03/09/20 12:00 Exam: Pre-Anes Outpt Exam: alert, oriented x 3, clear to auscultation bilaterally and regular rate & rhythm Additional Exam Findings (including area of procedure): Transvenous pacer RIJ Cardiac Studies: No Data to Display
--- NOTE | 2020-03-09 17:19 | PM.PN ---
Subjective Subjective: Interval history: The patient is feeling okay. Telemetry shows normal sinus rhythm. The temporary pacing wire is not functioning well. Patient is not requiring any pacing. Medications: Medication Review Details: Current Medications Hydrocodone Bitart/Acetaminophen (Hydrocodone-Acetaminophen 5-325 Mg Tablet) 1 tab PO Q4H PRN PRN Reason: MODERATE PAIN Last Admin: 03/09/20 13:22 Dose: 1 tab Documented by: Al Hydrox/Mg Hydrox/Simethicone (Pmjx-Qvb-Tmyhvthvu-Kristyn 30 Ml Udc) 30 ml PO Q4H PRN PRN Reason: INDIGESTION Aspirin (Aspirin 81 Mg Ec Tablet) 162 mg PO DAILY [facility] Last Admin: 03/09/20 08:31 Dose: 162 mg Documented by: Atorvastatin Calcium (Atorvastatin 40 Mg Tablet) 20 mg PO DAILY [facility] Last Admin: 03/09/20 08:32 Dose: 20 mg Documented by: Bisacodyl (Bisacodyl 5 Mg Tablet) 5 mg PO Q6H PRN PRN Reason: Constipation (Use 2nd) Bisacodyl (Bisacodyl 10 Mg Supp) 10 mg DC Q6H PRN PRN Reason: Constipation (Use 5th) Bismuth Subsalicylate (Bismuth Subsalicylate 240 Ml Btl) 30 ml PO PRN PRN PRN Reason: DIARRHEA Dextrose (Dextrose 50% Syringe 50 Ml) 25 ml IVP ONCE PRN; Protocol PRN Reason: hypoglycemia protocol Dextrose (Dextrose 50% Syringe 50 Ml) 50 ml IVP PRN PRN; Protocol PRN Reason: hypoglycemia protocol Diphenhydramine HCl (Diphenhydramine 25 Mg Capsule) 25 mg PO BEDTIME PRN PRN Reason: SLEEP Docusate Sodium (Docusate Sodium 100 Mg Capsule) 100 mg PO BID PRN PRN Reason: Constipation (Use 1st) Glucagon (Glucagon 1 Mg/Ml Inj 1 Ml) 1 mg IM ONCE PRN; Protocol PRN Reason: Adult Acute Hypoglycemia Prot. Guaifenesin (Guaifenesin 100 Mg/5 Ml Udc 10 Ml) 200 mg PO Q4H PRN PRN Reason: COUGH Norepinephrine Bitartrate 4 mg (/ Dextrose) 254 mls @ 0 mls/hr IV .Q0M DK; Protocol Dextrose (D5w) 500 mls @ 100 mls/hr IV ONCE PRN; Protocol PRN Reason: Adult Acute Hypoglycemia Prot Lactated Ringer's (Lactated Ringers) 1,000 mls @ 125 mls/hr IV .Q8H [facility] Last Admin: 03/09/20 15:58 Dose: 125 mls/hr Documented by: Cefazolin Sodium/Dextrose (Kefzol) 2 gm in 50 mls @ 100 mls/hr IV SEAL MIXER ONE; Protocol Stop: 03/09/20 17:29 Insulin Aspart (Insulin Aspart 100 Unit/1 Ml) 0 unit SUBCUT WM&BEDTIME DK; Protocol Last Admin: 03/09/20 12:06 Dose: Not Given Documented by: Lactulose (Lactulose Oral Liq 20 Gm/30 Ml Udc) 20 gm PO Q6H PRN PRN Reason: Constipation (Use 3rd) Magnesium Hydroxide (Magnesium Hydroxide 30 Ml Udc) 45 ml PO DAILY PRN PRN Reason: Constipation (use 4th) Morphine Sulfate (Morphine 4 Mg/Ml Sdv 1 Ml) 2 mg IVP Q1H PRN PRN Reason: SEVERE PAIN Nicotine (Nicotine 21 Mg Patch) 1 patch TRANSDERMA DAILY [facility] Last Admin: 03/09/20 08:30 Dose: 1 patch Documented by: Pantoprazole Sodium (Pantoprazole Dr 40 Mg Tablet) 40 mg PO DAILY [facility] Last Admin: 03/09/20 08:32 Dose: 40 mg Documented by: Phenol (Phenol Oral Allen 177 Ml) 3 spray MUCOUS MEM Q2H PRN PRN Reason: SORE THROAT Promethazine HCl (Promethazine 25 Mg Supp) 25 mg DC Q6H PRN PRN Reason: NAUSEA AND VOMITING Tamsulosin HCl (Tamsulosin 0.4 Mg Capsule) 0.4 mg PO BID [facility] Last Admin: 03/09/20 08:31 Dose: 0.4 mg Documented by: Temazepam (Temazepam 15 Mg Capsule) 15 mg PO BEDTIME [facility] Last Admin: 03/08/20 20:59 Dose: 15 mg Documented by: Vitals/I&O/Wt Last Vital Signs Temp 97.7 F 03/09/20 12:00 Pulse 78 03/09/20 14:00 Resp 19 H 03/09/20 12:00 BP 166/69 03/09/20 12:00 Pulse Ox 97 03/09/20 12:00 03/09/20 03/09/20 03/09/20 06:59 14:59 22:59 Intake Total 530 / 1410 1200 / 1200 Output Total 735 / 2345 600 / 600 Balance -205 / -935 600 / 600 Physical Exam Narrative: EXAM NARRATIVE: GENERAL: The patient is alert and oriented times three. Not in any acute distress. HEENT: No significant pallor, icterus or lymphadenopathy. Pupils are symmetrical. Oral cavity: There are no mucous membrane lesions. NECK: The left carotid endarterectomy site has a suction catheter. Transvenous temporary wire in the right internal jugular vein. RESPIRATORY: Chest is symmetrical. No intercostals muscle retraction or any accessory muscle activation. There is no chest wall tenderness. Breath sounds are heard bilaterally. No rales or rhonchi heard. No evidence of any consolidation. BREASTS: Deferred. HEART: The heart sounds are normal. No S3 or S4. ABDOMEN: No vessel pulsations or distention. No tenderness. No organomegaly appreciated. No abdominal bruit. Bowel sounds are normally heard. : Deferred. RECTAL: Deferred. LYMPHATIC: No lymphadenopathy noted in the neck or groin. EXTREMITIES: No edema or cyanosis. Peripheral pulses are palpable but weak bilaterally in the lower extremities. MUSCULOSKELETAL: No acute joint deformities or swelling SKIN: There are no significant scars or skin rash noted. NEUROPSYCHIATRIC: The patient is alert and oriented x3. Appears to be in a good mood. The higher functions are grossly within normal limits. No tremors or rigidity noted. Urinary Catheter Management^: Márquez: Cath Placed During This Visit: yes, but has since been removed by the nurse Reason for Continuing Indwelling Catheter: Accurate Measurement of Urinary Output in Critically Ill Patients Urinary Catheter Date of Insertion: 03/08/20 Urinary Catheter Time of Insertion: 07:05 Date Urinary Catheter Removed: 03/08/20 Time Urinary Catheter Discontinued: 18:00 Data : 03/02/20 12:05 03/02/20 12:05 Other Labs: Laboratory Last Values WBC 8.7 10^3/uL (4.0-10.0) 03/02/20 12:05 RBC 4.38 10^6/uL (4.1-5.3) 03/02/20 12:05 Hgb 14.2 g/dL (11.7-16.6) 03/02/20 12:05 Hct 41.8 % (42.0-52.0) L 03/02/20 12:05 MCV 95.4 fL (80-94) H 03/02/20 12:05 MCH 32.4 pg (28.0-34.0) 03/02/20 12:05 MCHC 34.0 g/dL (30.0-36.0) 03/02/20 12:05 RDW 11.5 % (12.1-15.1) L 03/02/20 12:05 Plt Count 248 10^3/cmm (130-400) 03/02/20 12:05 MPV 9.5 fL (7.4-10.4) 03/02/20 12:05 Neut % (Auto) 62.6 % 03/02/20 12:05 Lymph % (Auto) 21.8 % 03/02/20 12:05 Stoddard % (Auto) 10.6 % 03/02/20 12:05 Eos % (Auto) 3.9 % 03/02/20 12:05 Baso % (Auto) 0.9 % 03/02/20 12:05 Neut # (Auto) 5.46 10^3/uL (1.8-7.7) 03/02/20 12:05 Lymph # (Auto) 1.9 10^3/uL (0.8-4.8) 03/02/20 12:05 Stoddard # (Auto) 0.9 10^3/uL (0.2-0.9) 03/02/20 12:05 Eos # (Auto) 0.3 10^3/uL (0.0-0.8) 03/02/20 12:05 Baso # (Auto) 0.1 10^3/uL (0.0-0.1) 03/02/20 12:05 Nucleated RBC % (auto) 0 % 03/02/20 12:05 Nucleated RBCs # 0.0 /100WBC 03/02/20 12:05 PT 13.50 SECONDS (12.1-14.9) 03/02/20 12:05 INR 1.00 (0.8-1.2) 03/02/20 12:05 Specimen Type Arterial 03/08/20 09:00 Sample Site Yancy 03/08/20 09:00 ABG pH 7.22 (7.35-7.45) L 03/08/20 09:00 ABG pCO2 55.7 mmHg (35-45) H 03/08/20 09:00 ABG pO2 245.0 mmHg (80.0-100.0) H 03/08/20 09:00 ABG HCO3 22.6 mmol/L (22-26) 03/08/20 09:00 ABG O2 Saturation 98.4 03/08/20 09:00 ABG Base Excess -5.5 mmol/L (-2.0-2.0) L 03/08/20 09:00 Salvatore Test Pos 03/08/20 09:00 A-a O2 Gradient Not Reportable 03/08/20 09:00 Hematocrit 34.7 % (42-52) L 03/08/20 09:00 Hgb O2 Saturation 95.3 % (95-100) 03/08/20 09:00 Carboxyhemoglobin 1.9 %THgb (0.4-20.1) 03/08/20 09:00 Methemoglobin 1.3 % (0.4-1.5) 03/08/20 09:00 Total Hemoglobin 11.3 g/dL (14-18) L 03/08/20 09:00 Sodium 136.0 mmol/L (131-143) 03/08/20 09:00 Potassium 4.9 mmol/L (3.5-5.0) 03/08/20 09:00 Glucose 259.0 mg/dL (70-115) H 03/08/20 09:00 Ionized Calcium 1.3 mmol/L (1.1-1.4) 03/08/20 09:00 O2 Delivery Device Vent 03/08/20 09:00 FiO2 100.0 % 03/08/20 08:10 [employer] Crewmember ID Bd 03/08/20 09:00 Sodium 133 mmol/L (136-145) L 03/02/20 12:05 Potassium 4.5 mmol/L (3.5-5.1) 03/02/20 12:05 Chloride 97 mmol/L (98-107) L 03/02/20 12:05 Carbon Dioxide 26 mmol/L (22-29) 03/02/20 12:05 Anion Gap 14.5 (5-19) 03/02/20 12:05 BUN 19 mg/dL (8-23) 03/02/20 12:05 Creatinine 1.1 mg/dL (0.7-1.2) 03/02/20 12:05 GFR Calculation Not Reportable 03/02/20 12:05 Glucose 130 mg/dL (65-115) H 03/02/20 12:05 POC Glucose 137 mg/dL (70-110) H 03/09/20 12:04 Calculated Osmolality 280 mOsm/kg (285-295) L 03/02/20 12:05 Calcium 10.1 mg/dL (8.5-10.5) 03/02/20 12:05 Urine Color Straw (Yellow) 03/02/20 12:05 Urine Appearance Clear (CLEAR) 03/02/20 12:05 Urine pH 7 (5-7) 03/02/20 12:05 Ur Specific [place] 1.010 (1.005-1.030) 03/02/20 12:05 Urine Protein Neg (Negative) 03/02/20 12:05 Urine Glucose (UA) Norm (Normal) 03/02/20 12:05 Urine Ketones Negative (Negative) 03/02/20 12:05 Urine Blood Neg (Negative) 03/02/20 12:05 Urine Nitrate Negative (Negative) 03/02/20 12:05 Urine Bilirubin Neg (Negative) 03/02/20 12:05 Urine Urobilinogen Norm mg/dL (Negative) 03/02/20 12:05 Ur Leukocyte Esterase Negative (Negative) 03/02/20 12:05 Blood Type O Positive 03/08/20 05:49 Rho(D) Type Positive 03/08/20 05:49 Antibody Screen Negative 03/08/20 05:49 Crossmatch See Detail 03/08/20 05:49 A&P Assessment and plan (1) Bradycardia, sinus, persistent, severe: Patient is status post severe vasovagal bradycardia, prolonged pauses requiring CPR, associated hypertension. Currently he is back in a normal sinus rhythm with a normal blood pressure. For further management of his condition, he requires a permanent pacemaker implantation. Status: Acute (2) Chronotropic incompetence: The patient is chronotropic incompetence also is suggestive of sinus santos dysfunction Status: Acute (3) Carotid stenosis, bilateral: Patient requires skilled intervention. Dr. Duarte will be deciding on the timing and further management of this. Status: Acute (4) Aortic valve replaced: Valve function appears appropriate. We will continue on the current measures. Status: Acute (5) Hypertension: Currently the patient is normotensive. We will continue on the current medications. Status: Acute Qualifiers: Hypertension type: essential hypertension Qualified Code(s): I10 - Essential (primary) hypertension (6) Hyperlipidemia: May continue on the current medications. Status: Acute Qualifiers: Hyperlipidemia type: mixed hyperlipidemia Qualified Code(s): E78.2 - Mixed hyperlipidemia Additional A&P Information Patient is scheduled for a dual-chamber permanent pacer implantation today. Further disposition as per Dr. Duarte. Attestations Medical Necessity Statement*: possible discharge home tomorrow. Disposition as per Dr. Duarte Procedures Arterial Line Size (Gauge): 20 Coding Level of Care Code Acute [place] for Chg Fwd Diagnoses Bradycardia, sinus, persistent, severe R00.1 Chronotropic incompetence I45.89 Carotid stenosis, bilateral I65.23 Aortic valve replaced Z95.2 Hypertension I10 Hypertension type: essential hypertension Hyperlipidemia E78.2 Hyperlipidemia type: mixed hyperlipidemia
--- NOTE | 2020-03-09 17:21 | SUR.OPER ---
ATTEMPTED AGAIN TO CONTACT SHIRIN PEREZ (SON) PER NUMBER PROVIDED. NO ANSWER AT THIS TIME
[2020-03-09 17:55] LABS: Glucose Point of Care 158 mg/dL (70-110)
--- NOTE | 2020-03-09 19:00 | SC_ITS ---
WS: [id number] C-arm fluoroscopy for pacemaker wire location in the heart, 03/09/2020 Clinical Data: PACEMAKER Comparison: C-arm fluoroscopy of the chest, 03/08/2020. Findings: The pacemaker wires appear to and within the heart. SC/C-arm FL for Pacemaker Impression: Pacemaker wires in the heart.
[2020-03-09] MEDS: lidocaine 1% INJ 20 mL INJECTION ×2 (19:08→21:09)
[2020-03-09] MEDS: ceFAZolin 1,000 mg SDV 1000 MG IRRIGATION (19:08)
--- NOTE | 2020-03-09 19:14 | PC.NURSE ---
Report given to TIFFANY Gamboa.
--- NOTE | 2020-03-09 19:21 | PC.NURSE ---
Pt summary: Pt rested in bed throughout the shift.Transdermal Pacemaker paced at [address] Irwin decreased it around 1730. B/P stable. Pt asked for sleeping pill this am so he could sleep until surgery. Hydrocodone admin for discomfort, per pt. that helped. Pt used urinal frequently this am until he received Flomax. He missed it , as his bed and mattress was wet this afternoon. Pt declined bed linen change in am but allowed prior to surgery. He also had a bath, hibicleanse used on trunk. Pt to Surgery around 1820.
--- NOTE | 2020-03-09 20:22 | P.OP_ITS ---
Operative Report Date of procedure: March 09, 2020 Pre-op Diagnosis: Left carotid artery stenosis, refractory bradycardia Post-op diagnosis: same Procedure Done: Dual-lead pacemaker implantation Implants: Pacing generator, atrial-ventricular leads Surgeon: Zane Duarte Anesthesia: MAC and Local Complications: None Condition: stable Disposition: ICU Brief History: 74-year-old gentleman who is status post left neck exploration for planned left carotid endarterectomy with intraoperative refractory bradycardia and asystole requiring closed chest compression and subsequent chemical recovery by anesthesia. Immediately following the event, blood pressure could not be raised above about 100 and heart rate cannot be raised above 40. I elected to abort the endarterectomy. Neck was closed over VESNA drain and subsequently right IJ Cordis was placed in transvenous pacer wire position under fluoroscopy and subsequent capture and 80 bpm. Mr. Walters required transvenous pacing for approximately 3 hours and then returned to intermittent sinus rhythm. After evaluation by Dr. Irwin, it was recommended that permanent pacemaker be implanted. Details of risk of the procedure were carefully discu ssed with Mr. Walters and family. A proper consents have been reviewed and signed. Procedure: Procedure: Mr. Walters was taken to the OR suite and placed in the supine position over a shoulder roll. He received conscious sedation with continuous anesthesia monitoring by. His left neck VESNA drain was removed. His entire chest was sterilely prepped and draped. 1% lidocaine was infiltrated in the left subclavicular region. While in Trendelenburg position, utilizing modified seldinger technique, 2 guidewires were placed in the left subclavian vein. This was confirmed in position by fluoroscopy. Next, after infiltration with lidocaine, a subcutaneous pocket was created beginning from the exit point of the guidewire and extending laterally and inferiorly. Cautery was utilized to create the pocket just above the pectoralis musculature. Hemostasis was confirmed. An antibiotic-soaked sponge was placed in the wound. A dilator and tear-away sheath was placed over the first guidewire and advanced under fluoroscopy. Guidewire and dilator were removed. Next using a combination of curved and straight stylettes, the right ventricular lead was placed in position by fluoroscopy. The distal screw was extended. Next, under fluoroscopy, the right IJ temporary transvenous pacing wire was removed. Interrogation was then performed confirming appropriate parameters of the permanent right ventricular lead. The tear-away sheath was then removed and the ventricular lead was sewn to the floor of the subcutaneous pocket. In a similar fashion dilator and tear- away sheath was placed over the 2nd guide wire and advanced under fluoroscopy. Guidewire and dilator were removed. Straight and curved stylettes were used to position the right atrial lead with fluoroscopy. Distal screw was extended. Interrogation was then performed. Tear-away sheath was then removed. Atrial lead was secured to the floor of the subcutaneous pocket. Pocket was irrigated with antibiotic solution and hemostasis again confirmed. Pacing generator was brought into the field, and after confirmation of hemostasis in the subcutaneous pocket, the leads were connected to the generator with appropriate capture. The entire system was interrogated by fluoroscopy. Leads and generator were secured in the pocket. Sponge and needle count was correct. The wound was then closed in 2 layers of 3-0 Vicryl suture. Skin was reapproximated in a subcuticular manner with 4-0 Monocryl suture. A pressure dressing was applied. The left arm was placed in a sling. Mr. Walters had equal breath sounds bilaterally. He was then transferred back to the ICU, where chest x-ray is currently pending. Family was counseled at the completion of the procedure. Following are the specifics of this system: Right ventricular lead is 58 cm and model 5076. Serial number [id number] Right atrial lead is 52 cm and is model 5076. Serial number [id number]. Ventricular lead had sensing of 12.1 mV with an impedance of 973 ohms. Threshold was 0.5 V Atrial lead had sensing of 2.1 mV with an impedance of 551 ohms. Threshold was 0.7 V. BellaDati generator: Model # [id number] Serial #[id number]
--- NOTE | 2020-03-09 20:30 | PC.NURSE ---
Patient returned to ICU from OR at 2029. Patient had pacemaker placed by Dr. Duarte. Patient is alert and oriented x4. V/S WNL. Lung sounds clear. Immobilizer to left arm in place.
--- NOTE | 2020-03-09 20:45 | ANE.PACU2 ---
Inpatient post-anesthesia follow up: Airway intact: Yes Vital signs: Temperature 97.7 F Pulse Rate 71 Respiratory Rate 19 Blood Pressure 166/69 Pulse Oximetry 94 Oxygen Delivery Me thod [ Room Air Current Rate & Del guerrero] Oxygen Delivery Me thod Nasal Cannula Oxygen Flow Rate [ Current Rate 2 & Delivery] Oxygen Flow Rate 10 Fraction of Inspir ed Oxygen 2 Hydration adequate: Yes Nausea and vomiting: No Pain level: 1 Mental status: Baseline
--- NOTE | 2020-03-09 21:10 | SUR.OPER ---
NOTIFIED FAMILY OF STARTING PROCEDURE AND PATIENT STATUS PER PHONE NUMBER PROVIDED
--- NOTE | 2020-03-09 21:31 | ECG_ITS ---
[facility] Test Date: 2020-03-09 Pat Name: Luisa Walters Department: Room: ICU09 Gender: Male Director Of Regulatory Affairs: : 1945 Requested By: Zane Duarte Order Number: [id number] Hayes MD: Trish Munson M.D. Measurements Intervals [place] Rate: 70 P: 62 PA: 183 QRS: -24 QRSD: 171 T: 123 QT: 441 QTc: 478 Interpretive Statements SINUS RHYTHM LEFT BUNDLE BRANCH BLOCK [120+ ms QRS DURATION, 80+ ms Q/S IN V1/V2, 85+ ms R IN I/aVL/V5/V6] Compared to ECG 03/09/2020 06:11:55 Left bundle-branch block now present Ventricular-paced complex(es) or rhythm no longer present Electronically Signed On 03-10-2020 19:23:53 GUARDIAN AD LITEM by Trish Munson M.D. [id number]
[2020-03-09] MEDS: temazepam 15 mg Capsule PO (21:37)
[2020-03-09 21:39] LABS: Glucose Point of Care 107 mg/dL (70-110)
--- NOTE | 2020-03-09 22:43 | PC.NURSE ---
Dr. Duarte gave verbal orders to pull cordis line from right neck. Line pulled at 2215. Pressure held for 15 mins, site is clean and clear, and dressed with 2x2 and tegaderm. No bleeding noted. Continue care.
[2020-03-10] VITALS (20 sets, daily range): BP systolic 131–202; BP diastolic 57–89; PULSE 65–88; RESP 13–24; TEMP 36.5; O2SAT 90–97
[2020-03-10] MEDS: HYDROcodone-acetaminophen 5-325 mg Tablet 1 TAB PO (02:27)
--- NOTE | 2020-03-10 03:01 | PC.NURSE ---
Patient resting in room in bed with eyes open, patient did voice complaints of pain and PRN pain medication was given per APR. Continue care.
[2020-03-10] MEDS: lactated ringers 1,000 ML 125 ML IV (05:41)
--- NOTE | 2020-03-10 06:00 | XR_ITS ---
WS: [id number] Portable AP upright chest, 03/10/2020 Clinical Data: Post permanent pacemaker placement; visualize lead tip Comparison: PA and lateral chest, 03/08/2020. Findings: No nodules, masses or effusions are seen. The heart is normal. The pulmonary vascularity is not increased. No pneumonia or pneumothorax is seen. The left diaphragm is slightly elevated. A perm anent pacemaker has been inserted with the generator in the left axilla. There is minimal left basila r atelectasis. Monitor leads on the chest wall. XR/XR chest 1V 70506 Impression: Satisfactory insertion of pacemaker.
--- NOTE | 2020-03-10 06:00 | ECG_ITS ---
[facility] Test Date: 2020-03-10 Pat Name: Luisa Walters Department: Room: ICU09 Gender: Male Trademark Attorney: : 1945 Requested By: Zane Duarte Order Number: [id number] Freddy MD: Trish Munson M.D. Measurements Intervals [place] Rate: 75 P: 49 WA: 147 QRS: -11 QRSD: 167 T: 130 QT: 431 QTc: 482 Interpretive Statements SINUS RHYTHM POSSIBLE LEFT ATRIAL ENLARGEMENT [-0.1mV P WAVE IN V1/V2] LEFT BUNDLE BRANCH BLOCK [120+ ms QRS DURATION, 80+ ms Q/S IN V1/V2, 85+ ms R IN I/aVL/V5/V6] Compared to ECG 03/09/2020 21:37:37 No significant changes Electronically Signed On 03-10-2020 19:23:32 CAKE INSPECTOR by Trish Munson M.D. [id number]
--- NOTE | 2020-03-10 06:06 | P.PN_ITS ---
Subjective Subjective: Interval history: Postop day #1 status post dual-chamber pacemaker implantation. Postop day #2 status post aborted left carotid endarterectomy secondary to medically refractory hypotensive bradycardia intraoperatively. Mr. Walters looks very good this morning. He is eager for discharge to home. Voice quality is normal. No swallowing difficulties. Pacer interrogation underway though no apparent problems. All incisions are clean and dry. Surgical dressings changed. Vitals/I&O/Wt Last Vital Signs Temp 97.7 F 03/10/20 05:04 Pulse 77 03/10/20 05:00 Resp 24 H 03/10/20 05:00 BP 183/69 03/10/20 05:00 Pulse Ox 95 03/10/20 05:00 03/09/20 03/09/20 03/10/20 14:59 22:59 06:59 Intake Total 1200 / 1200 2048.333 / 3248.333 120 / 3368.333 Output Total 600 / 600 1100 / 1700 850 / 2550 Balance 600 / 600 948.333 / 1548.333 -730 / 818.333 Physical Exam HENMT: COMMON NORMALS: normocephalic HEAD & SCALP: normocephalic Neck/C-Spine: COMMON NORMALS: full ROM GENERAL: Yes normal visual inspect ion (Left neck incision clean and dry. No swelling. Trachea midline.) and No tracheal deviation Resp: COMMON NORMALS: No retractions and clear to auscultation bilaterally EFFORT & INSPECTION: Yes able to speak in complete sentences AUSCULTATION: clear to auscultation bilaterally Cardio: COMMON NORMALS: regular rate and regular rhythm RATE: regular rate RHYTHM: regular rhythm Extremity: COMMON NORMALS: no clubbing, cyanosis or edema Neuro: COMMON NORMALS: no focal motor deficits and no sensory deficits noted Urinary Catheter Management^: Márquez: Cath Placed During This Visit: yes, but has since been removed by the nurse Reason for Continuing Indwelling Catheter: Accurate Measurement of Urinary Output in Critically Ill Patients Urinary Catheter Date of Insertion: 03/08/20 Urinary Catheter Time of Insertion: 07:05 Date Urinary Catheter Removed: 03/08/20 Time Urinary Catheter Discontinued: 18:00 Data : 03/02/20 12:05 03/02/20 12:05 A&P Assessment and plan (1) Status post cardiac pacemaker procedure: Postop day #1 status post dual-chamber pacemaker implantation. Doing well. Will plan for discharge to home today. Status: Acute Attestations Medical Necessity Statement*: Status post pacemaker implantation secondary to medically refractory bradycardia Time Spent in Patient Care: 16 - 35 minutes Procedures Arterial Line Size (Gauge): 20 Coding Level of Care Code Acute Head Of Commission Department for Chg Fwd Diagnoses Status post cardiac pacemaker procedure Z95.0
--- NOTE | 2020-03-10 06:13 | PM.DCS ---
Discharge Providers Date of Admission: 03/08/20 08:34 Date of Discharge: March 10, 2020 Attending Provider at Admission: Zane Duarte MD Attending Provider at Discharge: Zane Duarte MD Primary Care Provider: Annabel Medina MD Diagnoses at Discharge Discharge Diagnosis (1) Status post cardiac pacemaker procedure: Status: Acute Reason for Visit Reason for Visit: Carotid Stenosis Hospital Course Hospital Course Mr. Walters is a 74-year-old gentleman electively admitted on March 08 for left carotid endarterectomy due to a high-grade lesion. Intraoperatively he developed profound medically refractory bradycardia and actually had an episode of asystole requiring chest compressions during chemical resuscitation. At that time, his left neck was opened and the carotid artery exposed though it had not been occluded. After recovery from his asystolic period, heart rate cannot be raised above 40 or blood pressure above 100. At this time, I elected to abort the planned endarterectomy. Left neck incision was closed and a right IJ transvenous pacemaker was placed with good capture at 80 bpm. He required continuous transvenous pacing for approximately 3 hours and then returned back to sinus rhythm in the ICU. After evaluation with Dr. Irwin, yesterday, I performed dual-chamber pacemaker implantation. He continues to do well and remains neurologically intact. Incisions are clean and dry. No phonation or swallowing difficulties. Tolerating diet well. He will be discharged to home today in stable condition. He will follow-up in my clinic in 1 week. We will stop the plan for referral to my colleague Dr. Luc Denise in [place] to consider carotid stenting. At the time of discharge, he remains in stable condition. Physical Exam Neck/C-Spine: GENERAL: Yes normal visual inspection (Left neck incision is clean and dry. Minimal swelling.) Chest: COMMONS NORMALS: normal inspection of the chest (Left subclavicular incision is clean and dry. Mild ecchymosis.) Resp: COMMON NORMALS: clear to auscultation bilaterally AUSCULTATION: clear to auscultation bilaterally Cardio: COMMON NORMALS: regular rate and regular rhythm RATE: regular rate RHYTHM: regular rhythm Neuro: COMMON NORMALS: moves all extremities, no focal motor deficits and no sensory deficits noted Urinary Catheter Management^: Márquez: Cath Placed During This Visit: yes, but has since been removed by the nurse Reason for Continuing Indwelling Catheter: Accurate Measurement of Urinary Output in Critically Ill Patients Urinary Catheter Date of Insertion: 03/08/20 Urinary Catheter Time of Insertion: 07:05 Date Urinary Catheter Removed: 03/08/20 Time Urinary Catheter Discontinued: 18:00 Discharge Data Data Completed and Pending: Completed Studies During Hospitalization Category Date Time Status XR chest 2V* 7104 6 Routine Exams 03/08/20 05:44 Completed Pending at discharge Category Date Time Status C-arm Fluoroscopy [id number] Routine Exams 03/09/20 19:00 Taken XR chest 1V [id number] Routine Exams 03/10/20 06:00 Ordered Leukocyte Reduced RBC Routine Lab 03/08/20 05:49 Results Type and Screen R outine Lab 03/08/20 05:49 Results Labs from last 24 hours 03/09/20 03/09/20 03/09/20 21:35 17:40 12:04 POC Glucose 107 158 H 137 H 03/09/20 08:23 POC Glucose 155 H Vitals: Last Vital Signs Temp 97.7 F 03/10/20 05:04 Pulse 77 03/10/20 05:00 Resp 24 H 03/10/20 05:00 BP 183/69 03/10/20 05:00 Pulse Ox 95 03/10/20 05:00 Discharge Plan Discharge Patient Disposition: Home Condition: Stable Prescriptions: New hydrocodone-acetaminophen 5-325 mg Tablet 1 tab PO Q6H PRN (Reason: Moderate Pain) Qty: 12 RF: 0 Continued multivitamin Tablet 1 tab PO DAILY RF: 0 omega-3 fatty acids [Fish Oil Concentrate] 1,000 mg capsule 1,000 mg PO DAILY RF: 0 glyburide 2.5 mg tablet 2.5 mg PO DAILY RF: 0 aspirin [Adult Low Dose Aspirin] 81 mg tablet,delayed release (DR/EC) 162 mg PO DAILY RF: 0 tamsulosin 0.4 mg capsule 0.4 mg PO BID Qty: 60 RF: 12 amlodipine 10 mg tablet 10 mg PO DAILY Qty: 90 RF: 3 carvedilol 25 mg tablet 25 mg PO BID Qty: 90 RF: 3 simvastatin 20 mg tablet 20 mg PO DAILY Qty: 90 RF: 3 chlorthalidone 25 mg tablet See Rx Instructions .ROUTE .COMPLEX Qty: 90 RF: 1 lisinopril 40 mg tablet 40 mg PO DAILY RF: 0 hydralazine 50 mg tablet 50 mg PO DAILY RF: 0 Discharge Orders: Discharge Order (Routine); Ordered 03/10/20 Ordered By: Zane Duarte Referrals: Zane Duarte MD [Physician] - 1 week Discharge Diet: Diabetic Discharge Activity: Limit activity as instructed Activity Restrictions/Additional Instructions: No lifting or heavy pulling for 1 week. Do not raise left arm above eye level for 1 week. May begin showers tomorrow. No swimming or tub baths x2 weeks. May remove surgical bandages tomorrow. Report any increasing swelling, redness, drainage, or fever. Discharge Attestations Time Spent in Discharge Care*: less than 30 min Specific Discharge Activities: educating patient, discussing with transplant case manager/social workers/dc planners, documenting/other paperwork and evaluating patient/reviewing data Status at Discharge: Cognitive status at discharge: cognitively intact, Functional status at discharge: independent ambulation Overall status at discharge: patient is back to baseline Quality Metrics Clinical Quality Measures During this hospital stay, did patient experience: None Coding Level of Care Code Acute Junior Assistant Manager for Gabrieleg Fwd Diagnoses Status post cardiac pacemaker procedure Z95.0
[2020-03-10 07:30] LABS: Glucose Point of Care 128 mg/dL (70-110)
[2020-03-10] MEDS: pantoprazole DR 40 mg Tablet PO (07:40)
[2020-03-10] MEDS: aspirin 81 mg EC Tablet 162 MG PO (07:40)
[2020-03-10] MEDS: tamsulosin 0.4 mg Capsule PO (07:40)
[2020-03-10] MEDS: atorvastatin 40 mg Tablet 20 MG PO (07:41)
--- NOTE | 2020-03-10 09:35 | PC.CHAP ---
Pastoral Care Encounter/Spiritual Assessment Type of Contact [] Declined safety engineer pressure vessels visit [] Patient/Family/Request visit [] Outpatient visit [] Follow-up visit [] Physician referral [] Code/Alert [] Routine visit [] Staff referral [] Actively dying [] Patient sleeping [] Family support [] [] Out of room [] Palliative care [] [] Receiving care in room [] Pre-surgical visit [] Trauma [] Long length of stay [x] ICU visit [] Other: Relational/Emotional Strength [] Patient feels connected with others/family/visitors/staff [] Distress [] Loneliness/isolation [] Abandonment Spirituality of Patient [] Person of [place] [] Attends Mosque of their [place] [] Believes in Prayer [] Reads Bible or Faith materials [] There are Spiritual issues to be addressed Enamel Shader Interventions [x] Prayer [] Active listening [] Non-anxious presence [] Spiritual/emotional support [] Crisis/trauma care [] Spiritual counseling [] Bereavement support [] Provided bereavement packet [] Provided Bible/devotional materials [] Provided toy/stuffed animal, coloring book to patient or family member [] Provided Communion [] Anointing/[place] [] Salvation [x] Completed spiritual assessment [] Other: Impact on Illness or Injury [] Angry [] Fearful [] Anxious [] Often cries [] Exhaustion [] Unable to work [] Unable to attend denominational [] Unable to walk/stand [] Unable to read [] Unable to drive [] Unable to eat/drink [] Unable to sleep [] Unable to be with family [] Patient intubated [] Other: Summary Time spent with patient
--- NOTE | 2020-03-10 10:08 | PC.NURSE ---
d/c home with son in law to drive him home.
== END 2020-03-10 10:01 | disposition home or self-care (01) | DRG 41 ==
LOC: ICU 08:35
PROVIDERS: Admitting Provider Thoracic Surgery (Cardiothoracic Vascular Surgery); PCP Internal Medicine; Visit Provider Thoracic Surgery (Cardiothoracic Vascular Surgery)
PROC: 03JY0ZZ Inspection of Upper Artery, Open Approach (ICD-10-PCS; 2020-03-08 07:00)
PROC: 03JY0ZZ Inspection of Upper Artery, Open Approach (ICD-10-PCS; 2020-03-08 07:00)
PROC: 02H63JZ Insertion of Pacemaker Lead into Right Atrium, Percutaneous Approach (ICD-10-PCS; principal; 2020-03-09 17:55)
DX: I65.22 Occlusion and stenosis of left carotid artery (principal); I45.89 Other specified conduction disorders; I97.710 Intraoperative cardiac arrest during cardiac surgery; N13.8 Other obstructive and reflux uropathy; I44.2 Atrioventricular block, complete; R00.1 Bradycardia, unspecified; E78.2 Mixed hyperlipidemia; Z95.2 Presence of prosthetic heart valve; Z79.82 Long term (current) use of aspirin; I25.10 Atherosclerotic heart disease of native coronary artery without angina pectoris; J44.9 Chronic obstructive pulmonary disease, unspecified; N40.1 Benign prostatic hyperplasia with lower urinary tract symptoms; E11.9 Type 2 diabetes mellitus without complications; F17.210 Nicotine dependence, cigarettes, uncomplicated; I95.9 Hypotension, unspecified
CPT/HCPCS: 12345; 36415; 36416; 36556; 36600; 36620; 51702; 71045; 71046; 76000; 77001; 80048; 80051; 81003; 82330; 82805; 82962; 83605; 85025; 85610; 86850; 86900; 86920; 93005; 96365; 96372; 97165; C1779; C1786; C1898; J0171; J0330; J0461; J0690; J1100; J1644; J1815; J2250; J2370; J2405; J2704; J3010; J3370; J3490; J7030; J7050; P9047

== ENCOUNTER 2020-06-03 10:20 | Outpatient (CLI) | payer MEDICARE, SELFPAY ==
--- NOTE | 2020-06-03 10:29 | XR_ITS ---
WS: [id number] Lumbar spine, 3 views, 06/03/2020 Clinical Data: PAIN IN LUMBAR SPINE/S/P FALL Comparison: None. Findings: No compression fractures or subluxation is seen. Degenerative disc narrowing is seen at L2-L3 and L5- S1. Anterior osteoarthritic spurring from L2 through L5 is seen.. The transverse processes and SI fabian nts are normal. There is calcification of the abdominal aorta and its distal branches no aneurysm is seen. There is a large amount of air and fecal material throughout the colon. XR/XR lumbar spine 2-3V* [id number] Impression: 1. Negative for compression fracture. 2. Osteoarthritis L2-L5. 3. Degenerative disc narrowing at L2-L3 and L5-S1.
--- NOTE | 2020-06-03 10:29 | XR_ITS ---
WS: [id number] Left hip, AP and frog-leg views, 06/03/2020 Clinical Data: PAIN IN LEFT HIP Comparison: None. Findings: No fractures or dislocations are seen. The left hip joint is intact. The soft tissues are not remarka ble. The adjacent pelvis is normal. XR/XR hip LT 2-3V wo/w pel* [id number] Impression: Negative left hip.
== END 2020-06-03 10:21 | disposition home or self-care (01) ==
LOC: RAD 10:27
PROVIDERS: PCP Internal Medicine; Visit Provider Pediatrics
DX: M25.552 Pain in left hip (principal); M47.816 Spondylosis without myelopathy or radiculopathy, lumbar region
CPT/HCPCS: 72100; 73502

== ENCOUNTER → 2020-06-10 14:47 | Outpatient (BNVA) | payer MEDICARE, SELFPAY | PROVIDERS: PCP Internal Medicine; Visit Provider Internal Medicine Cardiovascular Disease | DX: I65.23 Occlusion and stenosis of bilateral carotid arteries (principal); R07.89 Other chest pain; I50.33 Acute on chronic diastolic (congestive) heart failure; R06.02 Shortness of breath; Z95.0 Presence of cardiac pacemaker; E11.65 Type 2 diabetes mellitus with hyperglycemia; E78.2 Mixed hyperlipidemia; I25.10 Atherosclerotic heart disease of native coronary artery without angina pectoris; M79.605 Pain in left leg; F17.200 Nicotine dependence, unspecified, uncomplicated; I11.0 Hypertensive heart disease with heart failure | CPT/HCPCS: 80048; 83880 ==

== ENCOUNTER 2020-06-17 07:37 | Outpatient (CLI) | payer MEDICARE, SELFPAY ==
--- NOTE | 2020-06-17 07:45 | USCV_ITS ---
Luisa Walters Age: 74 Gender: M : 1945 Exam Date: 06/17/2020 07:59 Ordering Phys: Kavon Irwin MD ([email or web address]) Technologist: Mimi Mena Exam Location: [facility] [place] Indication: INCREASED VELOCITY ON LT Risk Factors: Unknown Previous Vascular Surgery: ? LT Right Brachial BP: / Left Brachial BP: / Right Left Velocity (cm/s) Spectral Plaque Velocity (cm/s) Spectral Plaque Syst/Diast Broadening Syst/Diast Broadening 55.40/ 11.50 Prox CCA 88.10 / 27.60 82.70/ 25.40 Hetro Mid CCA 32.00 / 9.10 92.60/ 28.70 Hetro Distal CCA 25.60 / 6.20 Hetro 201.50/55.80 Hetro Prox ICA 73.60 / 39.40 Hetro 278.30/61.00 Hetro Mid ICA 129.50/ 68.90 David 258.80/41.50 Distal ICA 635.70/ 157.90 Hetro 192.50 Hetro ECA 488.30 Hetro 3.37 ICA/CCA 19.84 Vertebral Antegrade / cm/s 112.1/ 29.10 cm/s 0 Bi Subclavian Bi 170.9 160.6 0 0 FINDINGS Heavy heterogeneous plaque throughout the left internal carotid artery with a marked spectral broadening in the distal segment Moderate to venous plaques in the right internal carotid artery and the bifurcation. Mild scattered plaques in the common carotid artery bilaterally Heavy plaques with elevated velocity in the left external carotid artery Right vertebral artery could not be visualized CONCLUSIONS 1. Heavy heterogeneous plaques at the left bifurcation and internal carotid artery with markedly elevated velocity and spectral broadening in the distal segment, suggesting 80 to 99% stenosis. 2. Moderate intravenous plaques of the right bifurcation and internal carotid artery with velocity elevation spectral broadening, suggesting 50 to 69% gnosis 3.Elevated velocity in the external carotid artery on the left side, suggestive of hemodynamically significant stenosis. 4. The right vertebral artery could not be visualized-possibly occluded Compared to the study from 12/15/2019, the possible occlusion of the right vertebral artery is new. Because of the involvement of the distal electrode arteries, consider CTA to better evaluate the distal segments and the intracranial vessels Dr Kavon Irwin MD [facility] (Electronically Signed) Final Date: 18 June 2020 08:59 S
== END 2020-06-17 07:38 | disposition home or self-care (01) ==
PROVIDERS: PCP Internal Medicine; Visit Provider Internal Medicine Cardiovascular Disease
DX: I65.23 Occlusion and stenosis of bilateral carotid arteries (principal)
CPT/HCPCS: 93880

== ENCOUNTER 2020-06-24 09:25 | Outpatient (CLI) | payer MEDICARE, SELFPAY ==
--- NOTE | 2020-06-24 08:30 | CT_ITS ---
WS: [id number] CTA HEAD AND NECK TECHNIQUE: Contrast enhanced CTA of the head and neck with coronal and sagittal reformatted images an d maximum intensity projection (MIP) images. NASCET criteria utilized. CLINICAL INFORMATION: I65.23 - Occlusion and stenosis of bilateral carotid arteries COMPARISON: CTA December 24, 2019 DLP: 2126.[address] scans at [facility] use at least one of these dose optimization techniques: automat ed exposure control; mA and/or kV adjustment per patient size (includes targeted exams where dose is matched to clinical indication); or iterative reconstruction. FINDINGS: RIGHT: Right common carotid artery is patent. Moderate calcified atheromatous disease right carotid b ulb extending into the ICA. Right ICA remains patent to the skull base. Right proximal ICA stenosis m easuring approximately 45%. LEFT: Left common carotid artery is patent. Dense calcified atheromatous disease left carotid bulb ex tending into the ICA with irregular atheromatous plaque. High-grade left proximal ICA stenosis with a tiny residual lumen. This is not significantly changed in appearance compared to December 24, 2019. L eft proximal ICA stenosis measuring approximately 84%. Left ICA remains patent to the skull base. INTRACRANIAL CTA: No significant flow in the proximal vertebral arteries. Vertebral arteries reconsti tute distally with tiny vertebral arteries which end in the posterior inferior cerebellar arteries. T his is unchanged from previous. Tiny basilar artery with dominant anterior circulation. Patent right greater than left posterior communicating arteries. Normal vascularity to the WIG COMBER territory bilateral ly. Both ICAs are patent at the skull base. Moderate cavernous carotid calcification. Normal vascularity to the FLORA and MCA territories bilaterally. No evidence of high-grade proximal stenosis or aneurysm. Patent anterior communicating artery. CT/CT angio headneck* [id number] IMPRESSION: 1. Right proximal ICA stenosis measuring 45% stable from previous. 2. Left proximal ICA stenosis measuring 84% with tiny residual lumen unchanged from previous. 3. Anterior dominant circulation with tiny hypoplastic vertebral arteries whic h terminate in the posterior inferior cerebellar arteries. No significant flow in the vertebral arteries proximally which reconstitute distally. 4. Otherwise unremarkable intracranial CTA.
[2020-06-24] MEDS: iohexol 350 mg/mL 100 mL Btl IV (09:42)
== END 2020-06-24 09:26 | disposition home or self-care (01) ==
LOC: RADWPI 09:25
PROVIDERS: PCP Internal Medicine; Visit Provider Thoracic Surgery (Cardiothoracic Vascular Surgery)
DX: I65.23 Occlusion and stenosis of bilateral carotid arteries (principal)
CPT/HCPCS: 70496; 70498; Q9967

== ENCOUNTER 2020-07-22 11:47 | Outpatient (CLI) | payer MEDICARE, SELFPAY ==
--- NOTE | 2020-07-22 12:01 | USCV_ITS ---
Luisa Walters Age: 74 Gender: M : 1945 Exam Date: 07/22/2020 13:09 Ordering Phys: Annabel Medina MD Technologist: Atiya Delacruz Exam Location: [facility] [place] Indication: HYPERTENSION BP: 150 / 94 HR: Rhythm: Sinus Technical Quality: Fair MEASUREMENTS (Male / Female) Normal Values 2D ECHO LV Diastolic Diameter PLAX 3.6 cm 4.2 - 5.9 / 3.9 - 5.3 cm LV Systolic Diameter PLAX 2.4 cm LV Chamber Size 4.2 cm IVS Diastolic Thickness 1.2 cm 0.6 - 1.0 / 0.6 - 0.9 cm IVS Systolic Thickness 1.6 cm LVPW Diastolic Thickness 1.1 cm 0.6 - 1.0 / 0.6 - 0.9 cm LVPW Systolic Thickness 1.1 cm RV Chamber Size 2.8 cm LVOT Diameter 2.1 cm LV Ejection Fraction 2D Teich 62.4 % LV Ejection Fraction MOD 2C 72.9 % LV Ejection Fraction 2C AL 78.2 % LA Diameter 3.4 cm LA Width 3.1 cm LA Height 5.0 cm RA Width 3.4 cm RA Height 5.0 cm Aorta at Sinotubular Diameter 2.2 cm M-MODE LV Diastolic Diameter MM 4.7 cm 4.2 - 5.9 / 3.9 - 5.3 cm LV Systolic Diameter MM 2.9 cm LV Ejection Fraction MM Teich 68.5 % IVS Diastolic Thickness MM 1.5 cm 0.6 - 1.0 / 0.6 - 0.9 cm IVS Systolic Thickness MM 1.9 cm LVPW Diastolic Thickness MM 1.2 cm 0.6 - 1.0 / 0.6 - 0.9 cm LVPW Systolic Thickness MM 1.4 cm RV Diastolic Diameter MM 1.3 cm Aortic Annulus Diameter 2.8 cm LA Ao Ratio MM 1.2 MV E Point Septal Separation 0.5 cm DOPPLER AV Peak Velocity 239.0 cm/s LVOT Peak Velocity 140.0 cm/s AV Area Cont Eq vti 2.3 cm squared AV Area Cont Eq pk 2.0 cm squared MV Area PHT 3.3 cm squared Mitral E to A Ratio 0.9 MV E' Velocity 50.5 cm/s Mitral E to MV E' Ratio 12.1 Mitral E to LV E' Lateral Ratio 10.1 Mitral E to LV E' Septal Ratio 15.1 TR Peak Velocity 215.4 cm/s TR Peak Gradient 18.6 mmHg TR Mean Velocity 193.9 cm/s TR Mean Gradient 15.9 mmHg TR Velocity Time Integral 73.5 cm TV Peak E Velocity 39.0 cm/s Right Atrial Pressure 3.0 mmHg Pulmonary Artery Systolic Pressu 21.6 mmHg PV Peak Velocity 58.0 cm/s RV Acceleration Time 0.1 s RV Ejection Time 0.2 s RV AcT/ET 0.3 FINDINGS Left Ventricle Normal left ventricular size and systolic function, EF 74 %. Mild left ventricular hypertrophy. No regional wall motion abnormalities. Grade I/IV diastolic dysfunction (abnormal relaxation filling pattern), normal to mildly elevated filling pressures. Right Ventricle Catheter/pacemaker wire in the right ventricular cavity. Right Atrium Catheter/pacemaker wire in the right atrial cavity. Left Atrium Mildly increased left atrial size. Mitral Valve Mild mitral valve regurgitation. Aortic Valve Thickened aortic valve. Tricuspid Valve Mild tricuspid valve regurgitation. Estimated pulmonary artery peak systolic pressure was 22 mmHg Pulmonic Valve No gross abnormalities noted Pericardium Normal pericardium without effusion. Aorta Normal ascending aorta dimension. CONCLUSIONS Normal left ventricular size and systolic function, EF 74 %. Mild left ventricular hypertrophy. No regional wall motion abnormalities. Grade I/IV diastolic dysfunction (abnormal relaxation filling pattern), normal to mildly elevated filling pressures. Mild mitral and tricuspid valve regurgitation. Estimated pulmonary artery peak systolic pressure was 22 mmHg Thickened aortic valve. Pacemaker wire was noted in the right atrium/right ventricle. There is no pericardial effusion. Dr Kavon Irwin MD [facility] (Electronically Signed) Final Date: 26 Jul 2020 09:57 S
== END 2020-07-22 11:48 | disposition home or self-care (01) ==
PROVIDERS: PCP Internal Medicine; Visit Provider Internal Medicine
DX: I10 Essential (primary) hypertension (principal); I08.3 Combined rheumatic disorders of mitral, aortic and tricuspid valves; Z95.0 Presence of cardiac pacemaker
CPT/HCPCS: 93306

== ENCOUNTER 2020-07-22 11:50 | Outpatient (CLI) | payer MEDICARE, SELFPAY ==
--- NOTE | 2020-07-22 13:30 | USCV_ITS ---
Luisa Walters Age: 74 Gender: M : 1945 Exam Date: 07/22/2020 12:39 Ordering Phys: Kavon Irwin MD ([email or web address]) Technologist: JEANNA [place] [facility] [place]: LEG PAIN Risk Factors: Smoker Previous Vascular Surgery: None RIGHT LEFT BP: 144.0 / 94.00 BP: 150.0/ 94.00 0 0 Waveform Velocity (cm/s) Velocity (cm/s) Waveform Triphasic 101.2 Iliac Mid 70.0 Monophasic Biphasic 80.2 Iliac Distal 111.9 Monophasic Biphasic 89.9 ENGINEERING INTERN 82.3 Triphasic Biphasic 180.0 SFA Prox 57.3 Monophasic Biphasic 101.0 SFA Mid 46.7 Monophasic Triphasic SFA Dist Monophasic 85.4 62.4 Biphasic 125.8 POP 38.5 Monophasic Triphasic 115.0 AXLE TURNER 30.4 Monophasic Monophasic 63.7 DPA 68.4 Monophasic 0.7 MANI 0.5 FINDINGS See measurements listed above. Mild to moderate diffuse plaques in the femoral and popliteal artery on the right side Diminished resting MANI of 0.7 on the right side Moderate diffuse plaques in the iliac, popliteal and infrapopliteal vessels on the left side Diminished resting MANI of 0.5 on the left side CONCLUSIONS 1. Features suggestive of moderate peripheral artery disease on the left side with a resting MANI of 0.5. 2. Features suggestive of mild peripheral artery disease on the right side with a resting MANI of 0.7 Consider exercise MANI, to better evaluate the functional significance, if clinically indicated Corrected copy of the study from 07/22/2020 Dr Kavon Irwin MD [facility] (Electronically Signed) Final Date: 26 Jul 2020 12:04 Amended: 27 July 2020 19:05 C
== END 2020-07-22 11:51 | disposition home or self-care (01) ==
LOC: RAD 11:55
PROVIDERS: PCP Internal Medicine; Visit Provider Internal Medicine Cardiovascular Disease
DX: M79.605 Pain in left leg (principal); M79.604 Pain in right leg
CPT/HCPCS: 80048; 83880; 93925

== ENCOUNTER 2020-07-30 09:38 | Outpatient (CLI) | payer MEDICARE, SELFPAY ==
--- NOTE | 2020-07-30 09:50 | CT_ITS ---
WS: [id number] LDCT LUNG CANCER SCREENING TECHNIQUE: Noncontrast CT of the chest with coronal and sagittal reformatted images. CLINICAL INFORMATION: NICOTINE DEPENDENCE, CIGARETTES COMPARISON: CT August 18, 2019 DLP: 56.56 mGy.cm DIvol: 1.[address] scans at [facility] use at least one of these dose optimization techniques: automat ed exposure control; mA and/or kV adjustment per patient size (includes targeted exams where dose is matched to clinical indication); or iterative reconstruction. FINDINGS: Previously described slightly spiculated 6 mm right lower lobe pulmonary nodule no longer seen today. This was likely infectious or inflammatory. Calcified granuloma right lower lobe. No new or suspicio us pulmonary nodules. No acute pulmonary infiltrates. Biapical fibrosis. No mediastinal or hilar lymphadenopathy. Aortic calcification. Coronary calcification.Adrenal glands are normal. Small esophageal hiatal hernia. CT/CT lung screening [id number] IMPRESSION: LUNG-RADS: 2-Benign Appearance or Behavior FOLLOW UP: 12 Month: Continue annual screening with LDCT
== END 2020-07-30 09:39 | disposition home or self-care (01) ==
LOC: CT 09:39
PROVIDERS: PCP Internal Medicine; Visit Provider Internal Medicine
DX: Z12.2 Encounter for screening for malignant neoplasm of respiratory organs (principal); F17.210 Nicotine dependence, cigarettes, uncomplicated; I70.0 Atherosclerosis of aorta; I25.10 Atherosclerotic heart disease of native coronary artery without angina pectoris; K44.9 Diaphragmatic hernia without obstruction or gangrene
CPT/HCPCS: 71271

== ENCOUNTER 2020-11-09 15:03 | Outpatient (CLI) | payer MEDICARE, SELFPAY ==
--- NOTE | 2020-11-09 15:09 | USCV_ITS ---
Romeo Luisa Age: 75 Gender: M : 1945 Exam Date: 11/09/2020 15:46 Ordering Phys: Annabel Medina MD Technologist: Neri Pham Exam Location: [facility] [place] Indication: LLE PAIN HISTORY: Lower extremity pain. PROCEDURES: Venous duplex imaging was performed in only the left lower extremity. The following venous structures were evaluated: common femoral vein, profunda vein, proximal portion of the greater saphenous vein, superficial femoral vein, and the popliteal vein. In addition, the posterior tibial and peroneal trunk were evaluated. Serial compression, augmentation maneuvers, and spectral Doppler flow evaluation were performed. FINDINGS: Normal 2-D Doppler and augmentation and compressibility throughout the lower extremity venous structures. Additional imaging through the proximal calf veins also reveals no thrombus. Limited evaluation of the greater saphenous vein is patent with no thrombus.. Prominent lymph nodes at the left groin. CONCLUSIONS No DVT left lower extremity. Dr. Claire Mendiola DO (Electronically Signed) Final Date: 10 November 2020 07:55 S
--- NOTE | 2020-11-09 15:09 | XR_ITS ---
WS: [id number] CERVICAL SPINE 3 VIEWS HISTORY: PAIN IN NECK X 8 WEEKS COMPARISON: None available. Cervical alignment is normal. Less than 2 mm retrolisthesis of C5. Moderate disc space narrowing at C 5-6 and C6-7. Facet joints are narrowed. More significant facet joint arthritis on the LEFT. Lateral masses of C1 and C2 are aligned. Odontoid is intact. No fracture. Short segment arterial stent in the LEFT neck in the expected location of the carotid artery. LEFT subclavian pacer wires and prior CABG. XR/XR cervical spine 3V* [id number] IMPRESSION: 1. Mild to moderate spondylitic changes throughout the cervical spine. Most si gnificant at C5-6 and C6-7. 2. No fracture. 3. LEFT carotid stent.
== END 2020-11-09 15:04 | disposition home or self-care (01) ==
LOC: RAD 15:06
PROVIDERS: PCP Internal Medicine; Visit Provider Internal Medicine
DX: R60.0 Localized edema (principal); M79.605 Pain in left leg; Z95.828 Presence of other vascular implants and grafts
CPT/HCPCS: 72040; 93971

== ENCOUNTER → 2021-04-29 10:00 | Outpatient (BNVA) | payer MEDICARE, SELFPAY | PROVIDERS: PCP Internal Medicine; Visit Provider Internal Medicine Cardiovascular Disease | DX: Z95.0 Presence of cardiac pacemaker (principal) | CPT/HCPCS: 93280 ==

== ENCOUNTER 2021-09-21 13:34 | Outpatient (CLI) | payer MEDICARE, SELFPAY ==
--- NOTE | 2021-09-21 13:41 | CT_ITS ---
WS: [id number] LDCT LUNG CANCER SCREENING HISTORY: HX OF TOBACCO USE TECHNIQUE: Axial imaging performed from the apices to 1 cm below the costophrenic angles. Coronal and sagittal reformats are submitted with axial MIP series. All CT scans at [facility] use at least one of these dose optimization techniques: automated exposure control; mA and/or kV adjustment per patient size (includes targeted exams where dose is matched to clinical indication); or iterativ e reconstruction. DLP: 84.41 mGy.cm DIvol: Mean CTDIvol: 1.60 (mGy) COMPARISON: 07/30/2020 Diagnostic quality: Satisfactory Lung Nodules: Mild biapical pleural thickening and fibrosis. Benign granuloma RIGHT lower lobe. No no ncalcified pulmonary nodule or mass. No endobronchial lesions. Lungs: No abnormality. Heart: Normal size heart. Prior CABG. Dual lead pacer wires. Other findings: Moderate atherosclerotic plaque within the thoracic aorta. No aneurysm. Normal size p ulmonary artery. Heavy calcification at the level of the renal arteries. CT/CT lung screening [id number] IMPRESSION: LUNG-RADS: 2-Benign Appearance or Behavior FOLLOW UP: 12 Month: Continue annual screening with LDCT OTHER FINDINGS (S MODIFIER): None.
== END 2021-09-21 13:35 | disposition home or self-care (01) ==
LOC: RAD 13:35
PROVIDERS: PCP Internal Medicine; Visit Provider Internal Medicine
DX: Z12.2 Encounter for screening for malignant neoplasm of respiratory organs (principal); Z87.891 Personal history of nicotine dependence
CPT/HCPCS: 71271

== ENCOUNTER 2021-11-03 13:20 | Outpatient (CLI) | payer MEDICARE, SELFPAY ==
--- NOTE | 2021-11-03 13:30 | XR_ITS ---
WS: [id number] Mandible series, 4 views, 11/03/2021 Clinical Data: OTHER LESIONS OF ORAL MUCOSA Comparison: None. Findings: There is erosion of the right mandible at the angle. The erosion measures 1.7 x 4.6 cm. There is a sc lerotic border on the inferior aspect but a very thin border on the superior aspect. There is irregul ar ossification anterior to this lesion in the right body. The left body and angle of mandible are in tact. The patient has modest dentition but most of the teeth are intact. There is a left carotid sherrie ry stent. XR/XR mandible min 4V [id number] Impression: 1.7 x 4.6 cm erosive lesion of the angle of the right mandible which could repr esent a long-standing cyst, erosion from a soft tissue mass or a low-grade meta static lesion.
== END 2021-11-03 13:21 | disposition home or self-care (01) ==
LOC: RAD 13:22
PROVIDERS: PCP Internal Medicine; Visit Provider Specialist
DX: K13.79 Other lesions of oral mucosa (principal)
CPT/HCPCS: 70110

== ENCOUNTER 2021-11-15 06:13 | Outpatient (CLI) | payer MEDICARE, SELFPAY ==
--- NOTE | 2021-11-15 06:23 | CT_ITS ---
WS: [id number] CT NECK TECHNIQUE: Contrast-enhanced CT of the neck with coronal and sagittal reformatted images. CLINICAL INFORMATION: OTHER LESIONS OF THE ORAL MUCOSA COMPARISON: None. DLP: 216.[address] scans at [facility] use at least one of these dose optimization techniques: automated e xposure control; mA and/or kV adjustment per patient size (includes targeted exams where dose is matc hed to clinical indication); or iterative reconstruction. FINDINGS: Lytic slightly expansile lesion involving the RIGHT mandibular ramus. This measures approxi mately 3.3 x 1.3 cm. This results in erosive changes involving portions of the lingual and buccal cor monster. Associated cortical thinning. This involves the adjacent RIGHT mandibular molars. No significant surrounding soft tissue reaction. Differential considerations includes benign and malignant lesions as well as metastatic disease in a patient this age. Differential considerations as discussed below. LEFT ICA stent appears patent. Parotid glands and submandibular glands are normal. No evidence of sup raglottic or glottic mass. Normal piriform sinuses. Normal subglottic airway. Normal parapharyngeal f at. No cervical lymphadenopathy. Normal thyroid gland. Prior sternotomy. Emphysematous changes in the jacob g apices. Moderate spondylitic changes cervical spine. Sinuses and mastoid air cells well aerated CT/CT neck w con* [id number] IMPRESSION: 1. Lytic expansile lesion involving the RIGHT mandibular ramus with cortical e rosion in some areas and cortical thinning. 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 Less likely denti gerous cyst considering areas of cortical erosion. Metastatic disease is an add itional consideration in a patient this age. Recommend further evaluation by EN T or oral maxillofacial surgery. 2. No evidence of supraglottic or glottic mass. 3. No cervical lymphadenopathy. 4. LEFT ICA stenosis patent.
[2021-11-15 06:43] LABS: Blood Urea Nitrogen 15 mg/dL (8-23)
[2021-11-15] MEDS: iohexol 350 mg/mL 100 mL Btl IV (06:54)
== END 2021-11-15 06:14 | disposition home or self-care (01) ==
LOC: RAD 06:14
PROVIDERS: PCP Internal Medicine; Visit Provider Specialist
DX: K13.79 Other lesions of oral mucosa (principal); I25.10 Atherosclerotic heart disease of native coronary artery without angina pectoris; I73.9 Peripheral vascular disease, unspecified; I65.23 Occlusion and stenosis of bilateral carotid arteries; Z95.0 Presence of cardiac pacemaker; E11.65 Type 2 diabetes mellitus with hyperglycemia; I10 Essential (primary) hypertension; E78.2 Mixed hyperlipidemia; Z95.2 Presence of prosthetic heart valve; F17.200 Nicotine dependence, unspecified, uncomplicated
CPT/HCPCS: 70491; 82565; 84520

== ENCOUNTER → 2022-05-04 10:55 | Outpatient (BNVA) | payer MEDICARE, SELFPAY | PROVIDERS: PCP Internal Medicine; Visit Provider Internal Medicine Cardiovascular Disease | DX: I77.9 Disorder of arteries and arterioles, unspecified (principal); I65.23 Occlusion and stenosis of bilateral carotid arteries; Z95.0 Presence of cardiac pacemaker; E11.65 Type 2 diabetes mellitus with hyperglycemia; I10 Essential (primary) hypertension; E78.2 Mixed hyperlipidemia; I25.10 Atherosclerotic heart disease of native coronary artery without angina pectoris; Z95.2 Presence of prosthetic heart valve; F17.200 Nicotine dependence, unspecified, uncomplicated | CPT/HCPCS: 99214 ==

== ENCOUNTER 2022-06-06 10:32 | Outpatient (CLI) | payer MEDICARE, SELFPAY ==
--- NOTE | 2022-06-06 10:39 | CT_ITS ---
WS: [id number] CT NECK TECHNIQUE: Contrast-enhanced CT of the neck with coronal and sagittal reformatted images. CLINICAL INFORMATION: MANDIBLE LESION COMPARISON: None. DLP: 257.[address] scans at [facility] use at least one of these dose optimization techniques: automated e xposure control; mA and/or kV adjustment per patient size (includes targeted exams where dose is matc hed to clinical indication); or iterative reconstruction. FINDINGS: Lytic slightly expansile lesion involving the RIGHT mandibular ramus is similar in appearance compare d to previous November 15, 2021. This measures approximately 3.1 x 1.5 cm not significantly changed from previous. No evidence of progression. Associated cortical thinning. Stable appearing erosive changes involving the lingual and buccal toan x. Stable extension to the RIGHT mandibular molars. Differential considerations are unchanged. Recomm end correlation with tissue sampling. Parotid glands and submandibular glands are normal. No evidence of supraglottic or glottic mass. Norm al subglottic airway. Normal piriform sinuses. No cervical lymphadenopathy. Normal thyroid gland. Prior sternotomy. Emphysematous changes in the jacob g apices. Moderate spondylitic changes cervical spine. Paranasal sinuses and mastoid air cells well a erated. Fibrosis the lung apices. Aortic arch calcification. Moderate RIGHT carotid bulb calcificatio n. LEFT ICA stent appears patent. CT/CT neck w con* [id number] IMPRESSION: 1. Previously described lytic expansile lesion involving the RIGHT mandibular ramus with cortical erosion is stable compared to the prior examination. No alexandra dence of progression. 2. Differential considerations are unchanged including odontogenic neoplasm lennon ch as odontogenic keratocyst, dentigerous cyst, or ameloblastoma. Metastatic di sease less likely considering stability. Recommend correlation with tissue samp ling. 3. No other significant interval changes. 4. Normal posterior nasopharynx. No evidence of supraglottic or glottic mass. Normal subglottic airway. 5. No cervical lymphadenopathy. 6. LEFT ICA stent is patent.
[2022-06-06 11:20] LABS: Blood Urea Nitrogen 16 mg/dL (8-23)
[2022-06-06] MEDS: iohexol 350 mg/mL 500 mL Btl (per mL) IV (11:32)
== END 2022-06-06 10:33 | disposition home or self-care (01) ==
LOC: RAD 10:34
PROVIDERS: Radiology Diagnostic Radiology; PCP Internal Medicine; Visit Provider Otolaryngology
DX: M27.9 Disease of jaws, unspecified (principal)
CPT/HCPCS: 70491; 82565; 84520; Q9967

== ENCOUNTER → 2022-09-26 15:45 | Outpatient (BNVA) | payer MEDICARE, SELFPAY | PROVIDERS: PCP Internal Medicine; Visit Provider Internal Medicine Cardiovascular Disease | DX: Z45.010 Encounter for checking and testing of cardiac pacemaker pulse generator [battery] (principal) | CPT/HCPCS: 93296 ==

== ENCOUNTER 2022-10-10 10:34 | Outpatient (CLI) | payer MEDICARE, SELFPAY ==
--- NOTE | 2022-10-10 | CT_ITS ---
WS: [id number] LDCT LUNG CANCER SCREENING HISTORY: SMOKER TECHNIQUE: Axial imaging performed from the apices to 1 cm below the costophrenic angles. Coronal and sagittal reformats are submitted with axial MIP series. All CT scans at [facility] use at least one of these dose optimization techniques: automated exposure control; mA and/or kV adjustment per patient size (includes targeted exams where dose is matched to clinical indication); or iterativ e reconstruction. DLP: 1.3 DIvol: 48.81 COMPARISON: 09/21/2021 Diagnostic quality: Satisfactory Lungs: Chronic emphysema, stable apical pleural thickening and fibrosis. Pleural tag right upper lobe . No mass or nodules. Small amount of debris right mainstem bronchus. Heart: Mild cardiomegaly. Prior CABG. Dual lead left subclavian cardiac pacer. Extensive calcificatio ns in the coronary arteries.. Other findings: Advanced atherosclerosis thoracic aorta. Atherosclerotic changes extend into the prox imal great vessels. Pulmonary artery size is equal to the aorta. No adenopathy. No adrenal mass. Mild bilateral perinephric stranding. Mild increase in thoracic kyphosis. IMPRESSION: CT/CT lung screening [id number] LUNG-RADS: 2-Benign Appearance or Behavior FOLLOW UP: 12 Month: Continue annual screening with LDCT OTHER FINDINGS (S MODIFIER): None.
== END 2022-10-10 10:35 | disposition home or self-care (01) ==
PROVIDERS: PCP Internal Medicine; Visit Provider Internal Medicine
DX: Z12.2 Encounter for screening for malignant neoplasm of respiratory organs (principal); Z87.891 Personal history of nicotine dependence; J43.8 Other emphysema; Z95.1 Presence of aortocoronary bypass graft; I51.7 Cardiomegaly
CPT/HCPCS: 71271

== ENCOUNTER → 2022-11-16 11:43 | Outpatient (BNVA) | payer MEDICARE, SELFPAY | PROVIDERS: PCP Internal Medicine; Visit Provider Internal Medicine Cardiovascular Disease | DX: I25.118 Atherosclerotic heart disease of native coronary artery with other forms of angina pectoris (principal); R06.02 Shortness of breath; I65.23 Occlusion and stenosis of bilateral carotid arteries; Z95.2 Presence of prosthetic heart valve; I77.9 Disorder of arteries and arterioles, unspecified; Z95.0 Presence of cardiac pacemaker; I10 Essential (primary) hypertension; E78.2 Mixed hyperlipidemia; E11.65 Type 2 diabetes mellitus with hyperglycemia; F17.200 Nicotine dependence, unspecified, uncomplicated; Z79.84 Long term (current) use of oral hypoglycemic drugs | CPT/HCPCS: 99214 ==

== ENCOUNTER 2022-12-04 09:48 | Outpatient (CLI) | payer MEDICARE, SELFPAY ==
[2022-12-04 10:40] LABS: Basophils % 0.5 %; Eosinophils # 0.1 10^3/uL (0.0-0.8); Eosinophils % 1.2 %; Hematocrit 34.1 % (37-53); Lymphocytes % 12.9 %; Mean Corpuscular HGB Conc 34.6 g/dL (30-55); Mean Corpuscular Hemoglobin 33.1 pg (27-33); Mean Corpuscular Volume 95.5 fl (82-101); Mean Platelet Volume 9.2 fL (7.4-10.4); Monocytes # 0.8 10^3/uL (0.2-0.9); Neutrophils # 6.04 10^3/uL (1.8-7.7); Nucleated Red Blood Cells % 0 %; Platelet Count 193 10^3/cmm (157-399); Red Blood Count 3.57 10^6/uL (3.85-5.65); Red Cell Distribution Width 11.7 % (12.1-15.1); White Blood Count 8.06 10^3/uL (3.29-11.43)
[2022-12-04 10:52] LABS: INR 1.04 (0.83-1.21); Prothrombin Time (Patient) 13.9 Seconds (12.0-15.1)
[2022-12-04 11:10] LABS: Anion Gap 12.9 (5-19); Blood Urea Nitrogen 15 mg/dL (8-23); Calcium 9.1 mg/dL (8.5-10.5); Carbon Dioxide 22 mmol/L (22-29); Chloride 89 mmol/L (98-107); Glucose 102 mg/dL (65-115); NT Pro B Type Natriuretic Pept 1637 pg/mL (0-450); Osmolality Calculated 251 mOsm/kg (285-295); Potassium 3.9 mmol/L (3.5-5.1); Sodium 120 mmol/L (136-145)
== END 2022-12-04 09:49 | disposition home or self-care (01) ==
PROVIDERS: PCP Internal Medicine; Visit Provider Internal Medicine Cardiovascular Disease
DX: I25.10 Atherosclerotic heart disease of native coronary artery without angina pectoris (principal); I25.118 Atherosclerotic heart disease of native coronary artery with other forms of angina pectoris; I77.9 Disorder of arteries and arterioles, unspecified; R06.02 Shortness of breath
CPT/HCPCS: 36415; 80048; 83880; 85025; 85610; 86850; 86900

== ENCOUNTER 2022-12-06 10:19 | Observation (INO) | payer MEDICARE, SELFPAY ==
[2022-12-06] VITALS (10 sets, daily range): BP systolic 118–145; BP diastolic 57–97; PULSE 70–99; RESP 16–23; TEMP 36.4–36.6; O2SAT 94–98
[2022-12-06 10:50] LABS: Basophils # 0.1 10^3/uL (0.0-0.1); Basophils % 0.6 %; Eosinophils # 0.1 10^3/uL (0.0-0.8); Eosinophils % 0.7 %; Hematocrit 32.2 % (37-53); Lymphocytes % 10.6 %; Mean Corpuscular HGB Conc 35.1 g/dL (30-55); Mean Corpuscular Hemoglobin 32.9 pg (27-33); Mean Corpuscular Volume 93.9 fl (82-101); Monocytes # 0.9 10^3/uL (0.2-0.9); Monocytes % 9.3 %; Neutrophils # 7.46 10^3/uL (1.8-7.7); Neutrophils % 78.5 %; Nucleated Red Blood Cells % 0 %; Platelet Count 195 10^3/cmm (157-399); Red Blood Count 3.43 10^6/uL (3.85-5.65); Red Cell Distribution Width 11.9 % (12.1-15.1); White Blood Count 9.51 10^3/uL (3.29-11.43)
--- NOTE | 2022-12-06 11:04 | W.ED.RECABL ---
Documented by User: Kenyatta Spicer MD 12/06/22 11:07 HPI - Recheck/Abnormal Lab/Rx General: Chief Complaint: Recheck/Abnormal Lab/Rx Stated Complaint: sent per Dr. 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 He denies any chest pain or shortness of breath currently he has no other symptoms at this time. 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 Mother , at age 80 No problems noted. Other Family history non-contributory Social History Smoking and tobacco/nicotine status: current every day tobacco/nicotine user Alcohol intake: never Substance/Drug Use: never Marital status: Current occupational status: retired Physical Exam Const: COMMON NORMALS: no acute distress, patient oriented x3 and healthy appearing HENMT: COMMON NORMALS: normocephalic and atraumatic HEAD & SCALP: normocephalic and atraumatic Neck/C-Spine: COMMON NORMALS: full ROM and supple Chest: COMMONS NORMALS: normal inspection of the chest and normal palpation of entire chest wall Resp: COMMON NORMALS: normal respiratory effort, No retractions, No use of accessory muscles and clear to auscultation bilaterally AUSCULTATION: clear to auscultation bilaterally Cardio: COMMON NORMALS: regular rate, regular rhythm and No murmurs present (Cardio) RATE: regular rate RHYTHM: regular rhythm GI: COMMON NORMALS: Normal to inspection, nondistended, normoactive bowel sounds present, Soft to palpation, non-tender and no masses PALPATION: Yes Soft to palpation Extremity: COMMON NORMALS: normal to inspection and full ROM Neuro: COMMON NORMALS: patient oriented x3, moves all extremities and no focal motor deficits Psych: COMMON NORMALS: mental status grossly normal, Normal thought process present and cooperative THOUGHT PROCESS: Normal thought process present Skin: COMMON NORMALS: no rashes or lesions noted and no wounds GENERAL SKIN EXAM: no rashes or lesions noted Course Vital Signs: Vital signs: Vital Signs Pulse Rate 79 12/06/22 13:00 Respiratory Rate 23 H 12/06/22 13:00 Blood Pressure 136/87 12/06/22 13:00 Pulse Oximetry 97 12/06/22 13:00 Oxygen Delivery Me thod Room Air 12/06/22 13:00 MDM - Recheck/Abnormal Lab/Rx Lab Data 12/06/22 10:43 12/06/22 10:43 Laboratory Results WBC 9.51 10^3/uL (3.29-11.43) 12/06/22 10:43 RBC 3.43 10^6/uL (3.85-5.65) L 12/06/22 10:43 Hgb 11.30 g/dL (11.27-16.99) 12/06/22 10:43 Hct 32.2 % (37-53) L 12/06/22 10:43 MCV 93.9 fl (82-101) 12/06/22 10:43 MCH 32.9 pg (27-33) 12/06/22 10:43 MCHC 35.1 g/dL (30-55) 12/06/22 10:43 RDW 11.9 % (12.1-15.1) L 12/06/22 10:43 Plt Count 195 10^3/cmm (157-399) 12/06/22 10:43 MPV 9.0 fL (7.4-10.4) 12/06/22 10:43 Neut % (Auto) 78.5 % 12/06/22 10:43 Lymph % (Auto) 10.6 % 12/06/22 10:43 Graham % (Auto) 9.3 % 12/06/22 10:43 Eos % (Auto) 0.7 % 12/06/22 10:43 Baso % (Auto) 0.6 % 12/06/22 10:43 Neut # (Auto) 7.46 10^3/uL (1.8-7.7) 12/06/22 10:43 Lymph # (Auto) 1.0 10^3/uL (0.8-4.8) 12/06/22 10:43 Graham # (Auto) 0.9 10^3/uL (0.2-0.9) 12/06/22 10:43 Eos # (Auto) 0.1 10^3/uL (0.0-0.8) 12/06/22 10:43 Baso # (Auto) 0.1 10^3/uL (0.0-0.1) 12/06/22 10:43 Nucleated RBC % (auto) 0 % 12/06/22 10:43 Nucleated RBCs # 0.0 /100WBC 12/06/22 10:43 Sodium 124 mmol/L (136-145) L 12/06/22 10:43 Potassium 4.2 mmol/L (3.5-5.1) 12/06/22 10:43 Chloride 91 mmol/L (98-107) L 12/06/22 10:43 Carbon Dioxide 22 mmol/L (22-29) 12/06/22 10:43 Anion Gap 15.2 (5-19) 12/06/22 10:43 BUN 15 mg/dL (8-23) 12/06/22 10:43 Creatinine 1.0 mg/dL (0.7-1.2) 12/06/22 10:43 GFR Calculation Not Reportable 12/06/22 10:43 Glucose 124 mg/dL (65-115) H 12/06/22 10:43 Calculated Osmolality 260 mOsm/kg (285-295) L 12/06/22 10:43 Calcium 9.3 mg/dL (8.5-10.5) 12/06/22 10:43 Total Bilirubin 0.6 mg/dL (0.15-1.2) 12/06/22 10:43 AST 28 U/L (0-40) 12/06/22 10:43 ALT 18 U/L (0-41) 12/06/22 10:43 Alkaline Phosphatase 92 U/L (40-130) 12/06/22 10:43 Total Protein 6.7 g/dL (6.6-8.7) 12/06/22 10:43 Albumin 4.5 g/dL (3.5-5.2) 12/06/22 10:43 Globulin 2.2 g/dL (1.3-4.6) 12/06/22 10:43 Discharge Plan Discharge Patient Disposition: Placed in Observation Clinical Impression: Acute hyponatremia, Atherosclerotic heart disease of [place] coronary artery with other forms of angina pectoris, Exertional dyspnea, Anginal equivalent Condition: Stable Prescriptions: No Action multivitamin Tablet 1 tab PO DAILY aspirin [Adult Low Dose Aspirin] 81 mg tablet,delayed release (DR/EC) 162 mg PO DAILY clopidogrel 75 mg tablet 75 mg PO DAILY hydralazine 50 mg tablet 100 mg PO TID 30 Days Qty: 180 5RF lisinopril 40 mg tablet 40 mg PO DAILY Qty: 90 1RF mirtazapine 15 mg tablet 7.5 mg PO BEDTIME Fish Oil 300-1,000 mg Capsule 1 cap PO DAILY Trelegy Ellipta 200-62.5-25 mcg blister with device 1 ea INHALATION DAILY chlorthalidone 25 mg tablet 25 mg PO DAILY tamsulosin 0.4 mg capsule 0.4 mg PO BID amlodipine 10 mg tablet 10 mg PO DAILY simvastatin 20 mg tablet 20 mg PO QPM Nitrostat 0.4 mg Tablet, Sublingual 0.4 mg SUBLINGUAL Q5M PRN (Reason: Chest Pain) Rx Instructions: do not exceed 3 doses per episode Referrals: Annabel Medina MD [Primary Care Provider] - Coding Level of Care Code ED Boring Machine Feeder for Chg Fwd Documented by User: Jaxon Colby DO 12/06/22 13:43 HPI - Recheck/Abnormal Lab/Rx General: Chief Complaint: Recheck/Abnormal Lab/Rx Stated Complaint: sent per Dr. 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 Mother , at age 80 No problems noted. Other Family history non-contributory Social History Smoking and tobacco/nicotine status: current every day tobacco/nicotine user Alcohol intake: never Substance/Drug Use: never Marital status: Current occupational status: retired Course Vital Signs: Vital signs: Vital Signs Pulse Rate 79 12/06/22 13:00 Respiratory Rate 23 H 12/06/22 13:00 Blood Pressure 136/87 12/06/22 13:00 Pulse Oximetry 97 12/06/22 13:00 Oxygen Delivery Me thod Room Air 12/06/22 13:00 MDM - Recheck/Abnormal Lab/Rx Medical Decision Making Care assumed at change of shift. Patient is hyponatremic. He is chronically hyponatremic but he is much lower than usual usually is little low 130s now he is down as low as 120 yesterday and [address] Irwin as well as with Dr. Carrasquillo is his primary care doctor. Patient be placed on observation correct his hyponatremia in preparation for his heart cath tomorrow. Suspect medicines include chlorthalidone and lisinopril. Does not appear to be fluid overloaded at this time. Medical Records I reviewed the patient's medical records. Lab Data I reviewed the patient's lab results. 12/06/22 10:43 12/06/22 10:43 Laboratory Results WBC 9.51 10^3/uL (3.29-11.43) 12/06/22 10:43 RBC 3.43 10^6/uL (3.85-5.65) L 12/06/22 10:43 Hgb 11.30 g/dL (11.27-16.99) 12/06/22 10:43 Hct 32.2 % (37-53) L 12/06/22 10:43 MCV 93.9 fl (82-101) 12/06/22 10:43 MCH 32.9 pg (27-33) 12/06/22 10:43 MCHC 35.1 g/dL (30-55) 12/06/22 10:43 RDW 11.9 % (12.1-15.1) L 12/06/22 10:43 Plt Count 195 10^3/cmm (157-399) 12/06/22 10:43 MPV 9.0 fL (7.4-10.4) 12/06/22 10:43 Neut % (Auto) 78.5 % 12/06/22 10:43 Lymph % (Auto) 10.6 % 12/06/22 10:43 Graham % (Auto) 9.3 % 12/06/22 10:43 Eos % (Auto) 0.7 % 12/06/22 10:43 Baso % (Auto) 0.6 % 12/06/22 10:43 Neut # (Auto) 7.46 10^3/uL (1.8-7.7) 12/06/22 10:43 Lymph # (Auto) 1.0 10^3/uL (0.8-4.8) 12/06/22 10:43 Graham # (Auto) 0.9 10^3/uL (0.2-0.9) 12/06/22 10:43 Eos # (Auto) 0.1 10^3/uL (0.0-0.8) 12/06/22 10:43 Baso # (Auto) 0.1 10^3/uL (0.0-0.1) 12/06/22 10:43 Nucleated RBC % (auto) 0 % 12/06/22 10:43 Nucleated RBCs # 0.0 /100WBC 12/06/22 10:43 Sodium 124 mmol/L (136-145) L 12/06/22 10:43 Potassium 4.2 mmol/L (3.5-5.1) 12/06/22 10:43 Chloride 91 mmol/L (98-107) L 12/06/22 10:43 Carbon Dioxide 22 mmol/L (22-29) 12/06/22 10:43 Anion Gap 15.2 (5-19) 12/06/22 10:43 BUN 15 mg/dL (8-23) 12/06/22 10:43 Creatinine 1.0 mg/dL (0.7-1.2) 12/06/22 10:43 GFR Calculation Not Reportable 12/06/22 10:43 Glucose 124 mg/dL (65-115) H 12/06/22 10:43 Calculated Osmolality 260 mOsm/kg (285-295) L 12/06/22 10:43 Calcium 9.3 mg/dL (8.5-10.5) 12/06/22 10:43 Total Bilirubin 0.6 mg/dL (0.15-1.2) 12/06/22 10:43 AST 28 U/L (0-40) 12/06/22 10:43 ALT 18 U/L (0-41) 12/06/22 10:43 Alkaline Phosphatase 92 U/L (40-130) 12/06/22 10:43 Total Protein 6.7 g/dL (6.6-8.7) 12/06/22 10:43 Albumin 4.5 g/dL (3.5-5.2) 12/06/22 10:43 Globulin 2.2 g/dL (1.3-4.6) 12/06/22 10:43 No radiology studies performed this visit Discharge Plan Discharge Patient Disposition: Placed in Observation Clinical Impression: Acute hyponatremia, Atherosclerotic heart disease of [place] coronary artery with other forms of angina pectoris, Exertional dyspnea, Anginal equivalent Condition: Stable Prescriptions: No Action multivitamin Tablet 1 tab PO DAILY aspirin [Adult Low Dose Aspirin] 81 mg tablet,delayed release (DR/EC) 162 mg PO DAILY clopidogrel 75 mg tablet 75 mg PO DAILY hydralazine 50 mg tablet 100 mg PO TID 30 Days Qty: 180 5RF lisinopril 40 mg tablet 40 mg PO DAILY Qty: 90 1RF mirtazapine 15 mg tablet 7.5 mg PO BEDTIME Fish Oil 300-1,000 mg Capsule 1 cap PO DAILY Trelegy Ellipta 200-62.5-25 mcg blister with device 1 ea INHALATION DAILY chlorthalidone 25 mg tablet 25 mg PO DAILY tamsulosin 0.4 mg capsule 0.4 mg PO BID amlodipine 10 mg tablet 10 mg PO DAILY simvastatin 20 mg tablet 20 mg PO QPM Nitrostat 0.4 mg Tablet, Sublingual 0.4 mg SUBLINGUAL Q5M PRN (Reason: Chest Pain) Rx Instructions: do not exceed 3 doses per episode Referrals: Annabel Medina MD [Primary Care Provider] - Coding Level of Care Code ED Boring Machine Feeder for Lester Mora
[2022-12-06 11:24] LABS: Alanine Aminotransferase 18 U/L (0-41); Albumin Level 4.5 g/dL (3.5-5.2); Alkaline Phosphatase 92 U/L (40-130); Anion Gap 15.2 (5-19); Aspartate Amino Transferase 28 U/L (0-40); Blood Urea Nitrogen 15 mg/dL (8-23); Calcium 9.3 mg/dL (8.5-10.5); Carbon Dioxide 22 mmol/L (22-29); Chloride 91 mmol/L (98-107); Globulin 2.2 g/dL (1.3-4.6); Glucose 124 mg/dL (65-115); Osmolality Calculated 260 mOsm/kg (285-295); Potassium 4.2 mmol/L (3.5-5.1); Sodium 124 mmol/L (136-145); Total Bilirubin 0.6 mg/dL (0.15-1.2); Total Protein 6.7 g/dL (6.6-8.7)
[2022-12-06] MEDS: sodium chloride 0.9% 1,000 ML 150 ML IV (13:20)
--- NOTE | 2022-12-06 13:37 | XRR_ITS ---
PROCEDURE INFORMATION: Exam: XR Chest Exam date and time: 12/06/2022 1:41 PM Age: 77 years old Clinical indication: Shortness of breath; Additional info: Assess for fluid overload TECHNIQUE: Imaging protocol: Radiologic exam of the chest. Views: 1 view. COMPARISON: CT lung screening [id number] 10/10/2022 10:48 AM FINDINGS: Tubes, catheters and devices: There is intact appearing pacemaker hardware. Lungs: Unremarkable. No consolidation. Pleural spaces: Unremarkable. No pleural effusion. No pneumothorax. Heart/Mediastinum: Unremarkable. No cardiomegaly. Bones/joints: Sternal sutures are again seen. No acute findings. XR/XR chest 1V portable [id number] IMPRESSION: No acute findings.
--- NOTE | 2022-12-06 14:03 | PM.HP ---
Providers/Chief Complaint Primary Care Provider: Annabel Medina MD Chief Complaint: sent per Dr. Irwin History of Present Illness Pleasant 77-year-old gentleman with history of CAD, with exertional dyspnea and angina has been scheduled for additional assessment by coronary angiogram which for now has been deferred as he has been found to be more hyponatremic than usual. His sodium does not infrequently run in the low 130s, but this is lower than usual. He reports for a while he used to be on diuretic, however, at some point this was discontinued about a month ago, he subsequently gained quite a bit of water weight, was also getting dyspneic with exertion. She was subsequently started on chlorthalidone, has lost the water weight, has not had any further edema. Has still been having exertional dyspnea and angina due to which she is being set up with evaluation by coronary angiography. In addition he states his appetite has not been very good, he has not been eating very well. He also limits sodium intake. Denies nausea vomiting or diarrhea. Review of Systems Const: Denies: fever(s), chills, body aches or malaise ENMT: Denies: throat pain, oral sores or ear or mastoid pain Card: Denies: chest pain, edema, pre-syncope or dyspnea on exertion Resp: Denies: dyspnea, productive cough, change in phlegm color or hemoptysis GI: Denies: abdominal pain, nausea, vomiting, diarrhea, constipation, hematochezia or melena : Denies: flank pain, difficulty urinating, urinary frequency or hematuria Musc: Denies: back pain, joint swelling or joint redness Skin/Breast: Denies: rash or new lesions Neuro: Denies: confusion (minimal) Endo: Denies: polyuria or polydipsia Medications/Allergies Home Medications Medication Instructions Recorded Confirmed Last Taken Type aspirin 81 mg tablet,delayed 162 mg PO DAILY 05/28/19 12/06/22 12/06/22 History release (Adult Low Dose Aspirin) multivitamin 1 tab PO DAILY 05/28/19 12/06/22 12/05/22 History clopidogrel 75 mg tablet 75 mg PO DAILY 08/11/21 12/06/22 12/06/22 History hydralazine 50 mg tablet 100 mg PO TID 30 days #180 tabs 07/12/22 12/06/22 12/06/22 Rx lisinopril 40 mg tablet 40 mg PO DAILY #90 tabs 07/25/22 12/06/22 12/06/22 Rx amlodipine 10 mg tablet 10 mg PO DAILY 12/06/22 12/06/22 12/06/22 History chlorthalidone 25 mg tablet 25 mg PO DAILY 12/06/22 12/06/22 12/06/22 History fluticasone fur. 200 mcg-umeclid 1 ea inhalation DAILY 12/06/22 12/06/22 12/06/22 History 62.5 mcg-vilant 25 mcg inhalat.powder (Trelegy Ellipta) mirtazapine 15 mg tablet 7.5 mg PO BEDTIME 12/06/22 12/06/22 12/05/22 History nitroglycerin 0.4 mg sublingual 0.4 mg sublingual Q5M PRN Chest 12/06/22 12/06/22 Unknown History tablet (Nitrostat) Pain omega 5-zgm-cot-fish oil 300 1 cap PO DAILY 12/06/22 12/06/22 12/05/22 History mg-1,000 mg capsule (Fish Oil) simvastatin 20 mg tablet 20 mg PO QPM 12/06/22 12/06/22 12/05/22 History tamsulosin 0.4 mg capsule 0.4 mg PO BID 12/06/22 12/06/22 12/06/22 History Allergies Allergy/AdvReac Type Severity Reaction Status Date / Time diltiazem Allergy Unknown unknown Verified 12/05/22 11:00 influenza virus vaccine Allergy Unknown unknown Verified 12/05/22 11:00 polly guzman- PFSH Acute PFSH: Medical History ASHD (arteriosclerotic heart disease) BPH loc w urin obs/LUTS Carotid stenosis, bilateral COPD (chronic obstructive pulmonary disease) Diabetes Elevated PSA Enlarged prostate Guillain-Farrell disease Hyperlipidemia Hypertension Smoking Surgical History Aortic valve replaced History of heart valve replacement History of PTCA Status post cardiac pacemaker procedure Family History Father No problems noted. Mother , at age 80 No problems noted. Other Family history non-contributory Social History Smoking and tobacco/nicotine status: current every day tobacco/nicotine user Alcohol intake: never Substance/Drug Use: never Marital status: Current occupational status: retired Vitals/I&O/Wt Last Vital Signs Pulse 99 12/06/22 13:56 Resp 16 12/06/22 13:56 BP 145/74 12/06/22 13:56 Pulse Ox 95 12/06/22 13:56 O2 Del Method Room Air 12/06/22 13:56 Weight last 48 hrs Weight 62.142 kg Physical Exam Narrative: Accompanied by family member Const: COMMON NORMALS: patient oriented x3 and alert GENERAL APPEARANCE: cooperative ORIENTATION/CONSCIOUSNESS: Yes awake HENMT: COMMON NORMALS: oropharynx normal Neck/C-Spine: COMMON NORMALS: no JVD Chest: OTHER: Old thoracotomy scar Resp: COMMON NORMALS: normal respiratory effort and clear to auscultation bilaterally AUSCULTATION: clear to auscultation bilaterally Cardio: COMMON NORMALS: no JVD, regular rhythm, S1 normal heart sound present, S2 normal heart sound present and No murmurs present (Cardio) RHYTHM: regular rhythm HEART SOUNDS: S1 normal heart sound present and S2 normal heart sound present GI: COMMON NORMALS: Normal to inspection, nondistended, normoactive bowel sounds present, Soft to palpation and non-tender PALPATION: Yes Soft to palpation Extremity: COMMON NORMALS: no joint enlargement and no pedal edema Neuro: COMMON NORMALS: patient oriented x3 and moves all extremities SENSORIUM/ORIENTATION: Yes alert Data 12/06/22 10:43 12/06/22 10:43 A&P Assessment and plan (1) Hyponatremia: Unknown chronicity of hyponatremia, usually sodium runs around 131. Now noted to be much worse at 121. Severe hyponatremia. Risk of worsening hyponatremia, brain edema, other complications. Suspect multifactorial secondary to chlorthalidone. Stop medication. Also has had poor oral intake and limit sodium intake at home. Receiving NS in ER currently. We will stop infusion. Follow-up sodium. Follow-up sodium level. At risk of overcorrection. Avoid thiazides. Consider loosening sodium restriction, although he does have history of fluid overload and CHF. Consider different diuretic. Reviewed CBC, reviewed chemistry. We will check TSH. ER documentation reviewed. Discussed with ER physician. (2) Anginal equivalent: Pending further assessment with coronary angiography. Cardiology has been contacted in ER. Cholangiogram postponed for now pending reassessment of hyponatremia. Reassess renal function. Continue aspirin, Plavix, statin. Lisinopril. Nitroglycerin as needed. Cardiac monitoring. (3) Exertional dyspnea: Will obtain chest x-ray. As above, exertion dyspnea accompanied by angina with exertion suspected secondary to coronary disease. Pending additional evaluation as above. (4) Atherosclerotic heart disease of [place] coronary artery with other forms of angina pectoris: Continue aspirin, Plavix, statin, lisinopril. Does not appear to be on beta-charlene. Nitroglycerin as needed. Plan Aortic valve replacement Status post PPM HTN: Continue lisinopril, hydralazine, amlodipine. Stop chlorthalidone. HLD COPD BPH: Continue Flomax Attestations Medical Necessity Statement*: Place in observation for additional assessment management of hyponatremia, angina and gentleman with underlying CAD with postponement of coronary angiography. Diagnoses Hyponatremia E87.1 Anginal equivalent I20.89 Exertional dyspnea R06.09 Atherosclerotic heart disease of [place] coronary artery with other forms of angina pectoris I25.118
[2022-12-06 17:08] LABS: Sodium 128 mmol/L (136-145)
[2022-12-06 18:11] LABS: Thyroid Stimulating Hormone 1.06 uIU/mL (0.27-4.20)
[2022-12-06] MEDS: atorvastatin 40 mg Tablet 20 MG PO (18:14)
[2022-12-06] MEDS: hyDRALAzine 50 mg Tablet 100 MG PO (18:15)
[2022-12-06] MEDS: tamsulosin 0.4 mg Capsule PO (18:15)
[2022-12-06] MEDS: nicotine 21 mg Patch 1 PATCH TRANSDERMA (18:15)
[2022-12-06] MEDS: enoxaparin 40 mg/0.4 mL Syringe SUBCUT (18:16)
[2022-12-06] MEDS: blistex lip oint 7 gm Tube 1 APPLIC TOPICAL (18:25)
[2022-12-06] MEDS: FUROsemide 10 mg/mL SDV 2mL 20 MG IVP (18:35)
[2022-12-06] MEDS: ipratropium-albuterol 3 mL Neb INHALATION (19:55)
[2022-12-06] MEDS: budesonide 0.5 mg/2 mL Neb INHALATION (19:55)
[2022-12-06 20:30] LABS: Sodium 125 mmol/L (136-145)
[2022-12-06] MEDS: mirtazapine 15 mg Tablet 7.5 MG PO (20:34)
[2022-12-06] MEDS: temazepam 15 mg Capsule PO (21:38)
[2022-12-07] VITALS (90 sets, daily range): BP systolic 83–142; BP diastolic 39–70; PULSE 62–99; RESP 12–79; TEMP 35.9–37.1; O2SAT 88–98
[2022-12-07 05:04] LABS: Basophils # 0.1 10^3/uL (0.0-0.1); Basophils % 0.8 %; Eosinophils # 0.1 10^3/uL (0.0-0.8); Hematocrit 30.4 % (37-53); Lymphocytes # 1.2 10^3/uL (0.8-4.8); Lymphocytes % 18.5 %; Mean Corpuscular HGB Conc 34.2 g/dL (30-55); Mean Corpuscular Hemoglobin 33.1 pg (27-33); Mean Corpuscular Volume 96.8 fl (82-101); Mean Platelet Volume 9.7 fL (7.4-10.4); Monocytes # 0.8 10^3/uL (0.2-0.9); Monocytes % 12.3 %; Neutrophils # 4.38 10^3/uL (1.8-7.7); Neutrophils % 65.9 %; Nucleated Red Blood Cells % 0 %; Platelet Count 181 10^3/cmm (157-399); Red Blood Count 3.14 10^6/uL (3.85-5.65); Red Cell Distribution Width 11.9 % (12.1-15.1); White Blood Count 6.64 10^3/uL (3.29-11.43)
[2022-12-07 05:27] LABS: Blood Urea Nitrogen 21 mg/dL (8-23); Calcium 8.9 mg/dL (8.5-10.5); Carbon Dioxide 23 mmol/L (22-29); Chloride 94 mmol/L (98-107); Glucose 90 mg/dL (65-115); Osmolality Calculated 265 mOsm/kg (285-295); Sodium 126 mmol/L (136-145)
--- NOTE | 2022-12-07 07:33 | PM.CONSULT ---
Providers/Reason For Consult Consulting Physician/Specialty*: TATIANNA Irwin MD/cardiology Reason for Consult*: Patient with history atherosclerotic heart disease, aortic valve replacement, permanent pacer implantation, presenting with chest pain and shortness of breath Requesting Physician: Dr. Watkins Attending Physician: Ankush Watkins Primary Care Provider: Annabel Medina MD History of Present Illness History of Present Illness Luisa Walters is a 77 year old male with a history of aortic valve disease, status post aortic valve replacement x2, mild to moderate coronary artery disease, carotid artery disease, status post stenting of the left ICA, history of peripheral artery disease, status post PROGRAMMING EQUIPMENT OPERATOR of the right SFA, is presenting with complaints of increasing shortness of breath and chest pain. He was found to have features of congestive heart failure and hyponatremia. He is admitted to hospital for further evaluation management. This patient apparently has been his baseline state of health up until a month ago when he started having exertional shortness of breath with left-sided chest pain. His symptoms are progressively getting worse. Even with minimal activities, he was getting very short of breath. The pain is described as pressure-like in nature, radiated to the left shoulder, left side of the neck and also the left arm. The frequency of the pain depends on the level of activities. He may have this once or twice a day. Usually last for 2 to 3 minutes and then goes away by itself or with 1 sublingual nitro. The intensity of the pain is moderate. He also been feeling very tired and weak lately. He was limiting his activities because of the symptoms. He was initially scheduled for a stress test. But because of his worsening symptoms and the high probability for coronary ischemia, this was canceled. Since hospital admission, his shortness of breath is better. His sodium was 120. Currently the sodium is 126. This patient had initial aortic valve replacement in 2006 in the [facility]. This was a bioprosthetic valve. 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 Since then, he has been doing okay. He also known to have peripheral artery disease and had PROGRAMMING EQUIPMENT OPERATOR of the right SFA at [facility] by Dr. Landin. In July 2020, he had a stenting of the left ICA. He had a permanent pacemaker implantation for symptomatic bradycardia. His pacemaker function seems to be appropriate. The most recent cardiac catheterization was done in December 2014. He was found to have mild to moderate diffuse coronary artery disease. 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 Patient has a history of chronic hyponatremia. His sodium was 120 on 12/04/2022. It seems to be improving since then Review of Systems Narrative: CONSTITUTIONAL: No fever or chills. EYES: No blurring of vision or other visual disturbances lately. ENT: No hoarseness of voice, auditory disturbances or sore throat. CARDIOVASCULAR: As mentioned above. RESPIRATORY: Shortness of breath as mentioned above GASTROINTESTINAL: No hematemesis or melena. GENITOURINARY: No dysuria or hematuria. INTEGUMENTARY: No skin rashes or history of skin cancer. NEURO: No transient ischemic attacks or amaurosis. PSYCHIATRIC: No history of psychosis or major depression. HEMATOLOGIC: No bleeding disorders or significant anemia. ENDOCRINE: No history of polyuria or polydipsia. MUSCULOSKELETAL: No recent joint pain or swelling. ALLERGY/IMMUNOLOGY: As mentioned above. Medications/Allergies Home Medications Medication Instructions Recorded Confirmed Last Taken Type aspirin 81 mg tablet,delayed 162 mg PO DAILY 05/28/19 12/06/22 12/06/22 History release (Adult Low Dose Aspirin) multivitamin 1 tab PO DAILY 05/28/19 12/06/22 12/05/22 History clopidogrel 75 mg tablet 75 mg PO DAILY 08/11/21 12/06/22 12/06/22 History hydralazine 50 mg tablet 100 mg PO TID 30 days #180 tabs 07/12/22 12/06/22 12/06/22 Rx lisinopril 40 mg tablet 40 mg PO DAILY #90 tabs 07/25/22 12/06/22 12/06/22 Rx amlodipine 10 mg tablet 10 mg PO DAILY 12/06/22 12/06/22 12/06/22 History chlorthalidone 25 mg tablet 25 mg PO DAILY 12/06/22 12/06/22 12/06/22 History fluticasone fur. 200 mcg-umeclid 1 ea inhalation DAILY 12/06/22 12/06/22 12/06/22 History 62.5 mcg-vilant 25 mcg inhalat.powder (Trelegy Ellipta) mirtazapine 15 mg tablet 7.5 mg PO BEDTIME 12/06/22 12/06/22 12/05/22 History nitroglycerin 0.4 mg sublingual 0.4 mg sublingual Q5M PRN Chest 12/06/22 12/06/22 Unknown History tablet (Nitrostat) Pain omega 0-bay-yut-fish oil 300 1 cap PO DAILY 12/06/22 12/06/22 12/05/22 History mg-1,000 mg capsule (Fish Oil) simvastatin 20 mg tablet 20 mg PO QPM 12/06/22 12/06/22 12/05/22 History tamsulosin 0.4 mg capsule 0.4 mg PO BID 12/06/22 12/06/22 12/06/22 History Allergies Allergy/AdvReac Type Severity Reaction Status Date / Time diltiazem Allergy Unknown unknown Verified 12/05/22 11:00 influenza virus vaccine Allergy Unknown unknown Verified 12/05/22 11:00 tval,purif- Current Medications Generic Name Dose Route Start Last Admin Trade Name Freq PRN Reason Stop Dose Admin Albuterol/Ipratropium 3 ml 12/06/22 20:00 12/06/22 19:55 Ipratropium-Albuterol 3 Ml Neb INHALATION 3 ml QID.RESPIRATORY DK Administration Atorvastatin Calcium 20 mg 12/06/22 18:00 12/06/22 18:14 Atorvastatin 40 Mg Tablet PO 20 mg QPM DK Administration Budesonide 0.5 mg 12/06/22 20:00 12/06/22 19:55 Budesonide 0.5 Mg/2 Ml Neb INHALATION 0.5 mg BID.RESPIRATORY DK Administration Camphor/Menthol/Phenol 1 applic 12/06/22 17:00 12/06/22 18:25 Blistex Lip Oint 7 Gm Tube TOPICAL 12/11/22 16:59 1 applic PRN PRN Administration DRYNESS Enoxaparin Sodium 40 mg 12/06/22 18:00 12/06/22 18:16 Enoxaparin 40 Mg/0.4 Ml Syringe SUBCUT 40 mg Q24H DK Administration Hydralazine HCl 100 mg 12/06/22 16:57 12/06/22 21:50 Hydralazine 50 Mg Tablet PO Not Given TID DK Mirtazapine 7.5 mg 12/06/22 21:00 12/06/22 20:34 Mirtazapine 15 Mg Tablet PO 7.5 mg BEDTIME DK Administration Nicotine 1 patch 12/06/22 17:45 12/06/22 18:15 Nicotine 21 Mg Patch TRANSDERMA 1 patch Q24H KD Administration Tamsulosin HCl 0.4 mg 12/06/22 18:00 12/06/22 18:15 Tamsulosin 0.4 Mg Capsule PO 0.4 mg BID DK Administration PFSH Acute PFSH: Medical History ASHD (arteriosclerotic heart disease) BPH loc w urin obs/LUTS Carotid stenosis, bilateral COPD (chronic obstructive pulmonary disease) Diabetes Elevated PSA Enlarged prostate Guillain-Gilbert disease Hyperlipidemia Hypertension Smoking Surgical History Aortic valve replaced History of heart valve replacement History of PTCA Status post cardiac pacemaker procedure Family History Father No problems noted. Mother , at age 80 No problems noted. Other Family history non-contributory Social History Smoking and tobacco/nicotine status: current every day tobacco/nicotine user Alcohol intake: never Substance/Drug Use: never Marital status: Current occupational status: retired Vitals/I&O/Wt Last Vital Signs Temp 97.9 F 12/07/22 04:00 Pulse 65 12/07/22 06:00 Resp 18 12/07/22 04:00 BP 135/54 12/07/22 04:00 Pulse Ox 96 12/07/22 04:00 O2 Del Method Room Air 12/07/22 04:00 12/06/22 12/07/22 12/07/22 22:59 06:59 14:59 Intake Total 0 / 0 Output Total 600 / 600 Balance -600 / -600 Weight last 48 hrs Weight 133 lb Weight 137 lb Physical Exam Narrative: GENERAL: The patient is alert and oriented times three. Not in any acute distress. HEENT: No significant pallor, icterus or lymphadenopathy.Oral cavity: There are no mucous membrane lesions. NECK: Trachea appears to be central. No masses noted. No JVD or thyromegaly appreciated. RESPIRATORY: Chest is symmetrical. No intercostals muscle retraction or any accessory muscle activation. There is no chest wall tenderness. Breath sounds are heard bilaterally. No rales or rhonchi heard. No evidence of any consolidation. BREASTS: Deferred. HEART: The heart sounds are normal. No S3 or S4. Ejection systolic murmur at the base of the heart. No diastolic murmurs. No pericardial rub ABDOMEN: No vessel pulsations or distention. No tenderness. No organomegaly appreciated. Bowel sounds are normally heard. : Deferred. RECTAL: Deferred. LYMPHATIC: No lymphadenopathy noted in the neck. EXTREMITIES: Peripheral pulses are palpable but weak bilaterally. No cyanosis MUSCULOSKELETAL: No acute joint deformities or swelling SKIN: There are no significant rashes or ecchymosis NEUROPSYCHIATRIC: The patient is alert and oriented x3. Appears to be in a good mood. No tremors or rigidity noted. Data 12/07/22 04:12 12/07/22 04:12 A&P Assessment and plan (1) Atherosclerotic heart disease koi coronary artery w/angina pectoris: Patient's symptoms are suggestive of accelerated angina. There is no EKG from the current admission. We will go ahead and do an EKG. I also may do a troponin T. Patient may be continue on the current medications for the time being. Apparently he did not have any chest pain since hospital admission. (2) Hyponatremia: History was 120 on 12/04/2022 and currently is 126. (3) Acute decompensated heart failure: Patient was given a dose of Lasix yesterday. We may continue the as needed Lasix. (4) Aortic valve replaced: Patient had a redo aortic valve in 2015. Has not had echocardiogram since 2020. We will go ahead and do an echocardiogram today to evaluate the LV function and valve function. (5) Peripheral arterial occlusive disease: Patient status post PROGRAMMING EQUIPMENT OPERATOR. Currently seems to be doing okay. No significant leg pain. (6) Status post cardiac pacemaker procedure: The pacemaker function was found to be appropriate. May continue on the current management. (7) Internal carotid artery stent present: We may do a carotid duplex lamination to follow-up on the carotid stenosis. It is not sure whether the patient had a Doppler examination in [place] with the Dr. Landin, in the recent past. We will try to find that out Plan The other problems are Mild anemia History of type 2 diabetes History of smoking abuse COPD Patient requires a cardiac catheterization to further evaluate his coronary arteries. The risk of bleeding, hematoma, vascular injury, myocardial infarction, myocardial perforation, malignant cardiac arrhythmias ,CVA, renal failure and other concomitant complications were explained in detail. Patient understood this well and consented to proceed. After reviewing the above test, we may go ahead and do the procedure sometime today. Based on the clinical progress, further recommendations will be made. Thank you for the opportunity to evaluate this patient and make these recommendations Coding Level of Care Code 34723 Diagnoses Atherosclerotic heart disease koi coronary artery w/angina pectoris I25.119 Hyponatremia E87.1 Acute decompensated heart failure I50.9 Aortic valve replaced Z95.2 Peripheral arterial occlusive disease I77.9 Status post cardiac pacemaker procedure Z95.0 Internal carotid artery stent present Z95.828
--- NOTE | 2022-12-07 07:36 | USCV_ITS ---
Luisa Walters Age: 77 Gender: M : 1945 Exam Date: 12/07/2022 08:02 Ordering Phys: Kavon Irwin MD ([email or web address]) Technologist: Neri Pham [place]am [place] [facility] [place] Indication: chest pain hx cad ao pros BP: 122 / 51 HR: 83 Rhythm: Sinus Technical Quality: Adequate MEASUREMENTS (Male / Female) Normal Values 2D ECHO LV Diastolic Diameter PLAX 3.1 cm 4.2 - 5.9 / 3.9 - 5.3 cm LV Systolic Diameter PLAX 2.6 cm IVS Diastolic Thickness 1.4 cm 0.6 - 1.0 / 0.6 - 0.9 cm IVS Systolic Thickness 1.5 cm LVPW Diastolic Thickness 1.3 cm 0.6 - 1.0 / 0.6 - 0.9 cm LVPW Systolic Thickness 1.4 cm LVOT Diameter 2.0 cm LV Ejection Fraction 2D Teich 24.7 % LV Ejection Fraction MOD 2C 66.1 % LV Ejection Fraction 2C AL 66.8 % LA Diameter 3.4 cm IVC Diameter 1.5 cm M-MODE Aortic Annulus Diameter 3.0 cm LA Ao Ratio MM 1.3 MV E Point Septal Separation 1.0 cm DOPPLER AV Peak Velocity 371.0 cm/s LVOT Peak Velocity 112.0 cm/s AV Area Cont Eq vti 1.1 cm squared AV Area Cont Eq pk 1.0 cm squared TR Peak Velocity 217.0 cm/s TR Peak Gradient 18.8 mmHg TV Peak E Velocity 79.0 cm/s Right Atrial Pressure 3.0 mmHg Pulmonary Artery Systolic Pressu 21.8 mmHg FINDINGS Left Ventricle Normal LV size ejection fraction around 55%(visual). Moderate hypokinesia of the basal and mid inferior wall segment. Moderate hypokinesia of the basal septum. Mild to moderate concentric left ventricular hypertrophy. Right Ventricle Catheter/pacemaker wire in the right ventricular cavity. Right Atrium Catheter/pacemaker wire in the right atrial appendage. Left Atrium Mildly increased left atrial size. Mitral Valve Thickened mitral valve. Mild mitral annular calcification. Mild to moderate mitral valve regurgitation. Aortic Valve The bioprosthetic valve in the aortic position appears to be well-seated. Thickening of the leaflet. The peak velocity across the valve is 3.7 m/s with a peak gradient of 63 mmHg. The aortic valve area is 1.1 cm squared Tricuspid Valve Mild tricuspid valve regurgitation. Pulmonic Valve No gross abnormalities noted Pericardium No pericardial effusion. Aorta Normal aortic annulus size. IVC Normal inferior vena cava. CONCLUSIONS Normal LV size ejection fraction around 55%(visual). Moderate hypokinesia of the basal and mid inferior wall segment. Moderate hypokinesia of the basal septum. Mild to moderate concentric left ventricular hypertrophy. Mildly increased left atrial size. Moderate aortic valve stenosis with a valve area 1.1 cm squared. Peak velocity of 3.7 m/s with a peak gradient of 63 and a mean gradient of 30 mm of Hg Thickened mitral valve. Mild mitral annular calcification. Mild to moderate mitral valve regurgitation. Mild tricuspid valve regurgitation. Estimated pulmonary artery peak systolic pressure 22 millimeters of mercury. There is no pericardial effusion. There are no intracardiac masses. 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 Dr Kavon Irwin MD FAC (Electronically Signed) Final Date: 07 December 2022 09:05 S
[2022-12-07 08:52] LABS: Troponin T (5th) Once 61 ng/L (0-15)
--- NOTE | 2022-12-07 08:54 | ECG_ITS ---
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 Measurements Intervals [place] Rate: 74 P: 51 NM: 148 QRS: 19 QRSD: 170 T: -75 QT: 450 QTc: 502 Interpretive Statements SINUS RHYTHM LEFT BUNDLE BRANCH BLOCK [120+ ms QRS DURATION, 80+ ms Q/S IN V1/V2, 85+ ms R IN I/aVL/V5/V6] Compared to ECG 03/10/2020 06:16:00 No significant changes Electronically Signed On 12-07-2022 21:37:53 CDT by Kavon Irwin M.D. [email or web address]
--- NOTE | 2022-12-07 09:05 | USCV_ITS ---
Luisa Walters Age: 77 Gender: M : 1945 Exam Date: 12/07/2022 13:50 Ordering Phys: Kavon Irwin MD ([email or web address]) Technologist: Neri Pham [place] [facility] [place]ication: cca disease hx of lt cca ica stent Risk Factors: Previous Vascular Surgery: Right Brachial BP: / Left Brachial BP: / Right Left Velocity (cm/s) Spectral Plaque Velocity (cm/s) Spectral Plaque Syst/Diast Broadening Syst/Diast Broadening 88.75/ 15.40 Prox CCA 80.50 / 20.90 104.70/20.90 Mid CCA 83.80 / 15.40 103.60/22.10 Distal CCA 77.20 / 15.40 182.45/51.90 Prox ICA 181.80/ 34.20 209.10/52.30 Mid ICA 146.00/ 14.00 176.90/56.30 Distal ICA 174.00/ 34.20 183.30 ECA 93.70 2.02 ICA/CCA 2.17 Antegrade Vertebral Antegrade 92.50/ 28.10 cm/s 93.20/ 24.90 cm/s Bi Subclavian Bi 102.5 207.4 0 0 FINDINGS lt side stent Mild diffuse plaques on the common carotid arteries bilaterally. The stented segment of the distal CCA/proximal ICA on the left side was found to be patent. Moderate to heavy heterogenous plaques at the right bifurcation and in the ICA. Moderate diffuse plaque in the mid and distal ICA on the left side. CONCLUSIONS Moderate to heavy heterogenous plaques at the right bifurcation and internal carotid artery, suggesting 50 to 69% stenosis. Patent stented segment of the left CCA/ICA. Elevated velocity at the left bifurcation, suggesting 50 to 69% stenosis . Elevated velocity in the left proximal subclavian artery, may suggest greater than 50% stenosis. Compared to the study from 06/17/2020, no significant stenosis, based on the above findings the stent in the left ICA/CCA is new.. The stenosis in the right ICA appears to be less severe. Dr Kavon Irwin MD [facility] (Electronically Signed) Final Date: 08 December 2022 13:30 S
[2022-12-07] MEDS: tamsulosin 0.4 mg Capsule PO ×2 (09:23→18:01)
[2022-12-07] MEDS: aspirin 81 mg EC Tablet 162 MG PO (09:23)
[2022-12-07] MEDS: clopidogrel 75 mg Tablet PO (09:23)
[2022-12-07] MEDS: amlodipine 10 mg Tablet PO (09:23)
[2022-12-07] MEDS: sodium chloride 1 gm Tablet PO ×2 (09:23→18:01)
[2022-12-07] MEDS: hyDRALAzine 50 mg Tablet 100 MG PO ×3 (09:23→20:11)
[2022-12-07] MEDS: lisinopril 20 mg Tablet 40 MG PO (09:23)
--- NOTE | 2022-12-07 09:31 | XACV_ITS ---
Exam Room: [facility] Ht: 173 cm Wt: 62 kg BSA: 1.72 m2 Gender: Male : 1945 Any Known Allergies: Other Exam Priority: Routine Procedure(s): Procedure Description: Diagnostic procedure Procedure Description: PCI procedure Procedure Description: Venous Graft Catheterization Procedure Description: Drug Eluting Coronary Stent Procedure Description: PTCA Procedure Description: Miscellaneous Procedure Description: ACT Procedure Description: Coronary Angiography Dc [place]; Diagnostic Cath Status: Urgent Diagnostic Findings * Left Main has mild 20-30% distal disease. * Right Coronary Artery is small sized vessel. No significant disease. * Mid Left Anterior Descending: severe 80- 90% stenosis, JUAN: 3 flow. 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 Mid Circumflex: significant 75% stenosis, JUAN: 3 flow. It appears to have a plaque rupture. * Coronary angiography shows co-dominance. PCI Status: Urgent PCI Indication: Other Interventional Findings * Procedure detail: Procedure details: We engaged anomalous left circumflex artery with a JR4 guide catheter. IV heparin was administered to maintain an ACT above 250 seconds. A 0.014 run-through guidewire was used to cross the stenosis and was placed in distal vessel. 2.5 x 12 mm semicompliant balloon was used to predilate the stenosis. This was followed by placement of 3.0 x 18 mm resolute Chaparro drug-eluting stent. At this time final angiogram was performed that showed excellent stent expansion, JUAN-3 flow and no residual stenosis. Guidewire and guide catheter were removed. 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 . * Mid Circumflex: 75% stenosis treated with a AB TREK 2.50X12 RX BALLOON, and MDT R CHAPARRO 3.0X15 KODI. 0% residual stenosis, JUAN: 3 flow. Conclusions 1. Severe mid left circumflex artery stenosis with possible plaque rupture. S/p successful revascularization with 1 stent. 2. Severe mid LAD stenosis . Plan for staged revascularization in 2-4 weeks. 3. Mid Circumflex was treated with a Balloon, and Drug Eluting Stent. Recommendations * Dual antiplatelet therapy with aspirin and plavix for at least 1 year. * High intensity statin therapy. * Outpatient cardiology follow up in 1 week. * Staged PCI of mid LAD in 2 weeks. Interventional RX Recommendation: PCI w/o planned CABG Diagnostic RX Recommendation: PCI w/o planned CABG Anticoagulation: Heparin Pressures Phase:Rest AO : 64 / 28 ( 44 ) @ 11:45:00 AM 76 / 62 ( 69 ) @ 11:57:00 AM 75 / 48 ( 61 ) @ 11:58:00 AM 77 / 48 ( 62 ) @ 12:01:00 PM 102 / 37 ( 63 ) @ 12:05:00 PM 85 / 45 ( 63 ) @ 12:08:00 PM 74 / 52 ( 62 ) @ 12:12:00 PM 75 / 44 ( 58 ) @ 12:16:00 PM Clinical Evaluation EBL: 5mL-10mL Procedural Details Procedure Consent Obtained. Pre-Procedure Time Out. Identified patient by full name and date of as verbalized by the patient/guarantor. Does the consent match the physician's order: Yes. Accurate & Complete Informed Consent: Yes. Inpatient/Outpatient History & Physical on Chart: Yes. If H&P is completed, is and addenduem needed: No; If yes, is the addendum complete: N/A. Visualize and Verify Site with Patient/Guarantor: N/A. Relevant Radiology Images available: Yes. Pre-op teaching completed and patient verbalized understanding. The risks, benefits, and alternatives of sedation and/or procedure were discussed by physician. The patient agrees to continue. Procedure started. [facility] Clinical Fraility Score: 4: Vulnerable. Engineering Programmer Indications: Suspected CAD. Chest Pain Symptom Assessment: Atypical Angina. Correct patient, site and procedure confirmed by cath team. Current diagnosis: Chest Pain. PERRLA. Strong, equal hand business analysis specialist bilaterally. Lungs clear x 5 lobes. Current Diagnosis : Chest Pain. Physician arrived. IV Site on Arrival: 18 gauge in the left anticubital. IV Fluids: 0.9% NaCl at KVO. 0 mL infused prior to field laboratory operator. Oxygen started at 2liters/min via nasal canula. bilateral groins was prepped with chloroprep then draped in the usual sterile fashion. Baseline sample Acquired. HR: 110 BPM. Physician scrubbed in. Immediate Pre-Procedure Time Out. Correct Patient: Yes; Correct Procedure: Yes; Correct Site: Yes; Correct Patient Position: Yes; Correct Supplies: Yes; Dried Flammable Prep: Yes; Blood Products Available: N/A;. Lidocaine 1% infiltrated to the right groin. Arterial access obtained with micropuncture set. Inventory is TR Glidewire Angled Stiff Shaft .[address]cm[address] Prince scrubbed out to talk with previous cath patient threatening to leave AMA with a TR band on. Physician scrubbed in. Glidewire inserted through the catheter. A 6 st lucian JL4 catheter in over wire. Wire out. Multiple views taken of left coronary artery. Catheter removed over the exchange wire. A 6 st lucian JR4 catheter in over wire. Multiple views taken of right coronary artery. Catheter removed over the exchange wire. A 5 st lucian JR4 catheter in over wire. Multiple views taken of right coronary artery and circumflex artery. Physician review of cine films. Catheter removed over the exchange wire. 6 st lucian JR 4 guide catheter was inserted over the wire. Runthrough guidewire was advanced through the guide catheter to lesion in the mid Circ. Inflation number : 1 A AB TREK 2.50X12 RX BALLOON was prepped and advanced across the Mid CX , then inflated to 8 DILLAN for 0:10 seconds. Inflation number: 2 The AB TREK 2.50X12 RX BALLOON was reinflated across the Mid CX, to 8 DILLAN for 0:12 seconds. Results checked. Balloon out. Inflation Number : 3 A SUZIE Lyles CHAPARRO 3.0X15 KODI -Lot Number# _[id number] EXP: 10/05/2024 was prepped and advanced across the Mid CX. The stent was deployed at 12 DILLAN for 0:17 seconds. Stent balloon out over wire. Results checked. Wire out. Results checked. ACT drawn. Results out of range high seconds. Therapeutic limits - pre-heparin administration 90-150 seconds and monitoring heparin during a vascular procedure >250 seconds. Guide catheter out. A Suture was successful obtaining hemostatsis at the Right Femoral artery insertion site. Arterial sheath flushed and connected to tranducer and pressure bag with heparinized saline. Post Procedure: Pulses reassessed and unchanged. PERRLA. Strong, equal hand business analysis specialist bilaterally. No VTE prophylaxis required. Medication's Wasted: Heparin = 2000 units. Medication's Wasted: Other = Fentanyl 50mcg Versed 1 mg. Total IV fluids: 316 mL. Post-op diagnosis: CAD. Complications: None. Estimated blood loss: 5mL-10mL. Responsiveness - Normal response to verbal stimuli; alert and oriented, PERRLA. Airway - Unaffected, no intervention required; spontaneous ventilation. Circulation: W/N/L, pulses unchanged. Nausea/Vomiting: No. Procedure completed. Patient transferred by bed to 1st floor. Vital chart was stopped. Access Site Site: Right Femoral artery Sheath Size: 6 Fr Hemostasis Method: Suture Hemostasis Success: Successful Procedure Medications Start: 10:26 AM Stop: 10:26 AM Medication: Versed Amount: 1 mg Route: I.V. Start: 10:26 AM Stop: 10:26 AM Medication: Fentanyl Amount: 50 mcg Route: I.V. Start: 10:26 AM Stop: 10:26 AM Medication: Benadryl Amount: 50 mg Route: I.V. Start: 10:52 AM Stop: 10:52 AM Medication: 0.9% Saline Amount: ml Route: I.V. bolus Start: 11:02 AM Stop: 11:02 AM Medication: Heparin Amount: 6000 units Route: I.V. Start: 11:12 AM Stop: 11:12 AM Medication: Heparin Amount: 1000 units Route: I.V. Start: 11:17 AM Stop: 11:17 AM Medication: Plavix Amount: 300 mg Route: P.O. I, the attending physician, have reviewed and verified all procedure medications. Yes, all medications given per verbal order History/Risk Factors Hypertension: Yes Dyslipidemia: Yes Peripheral Arterial Disease (PAD): Yes Myocardial Infarction (NM): No Obesity: No Renal Disease: No Tobacco Use: Current/Recent(w/in 1 year) Prior Interventions PCI: Yes CABG: Yes Valve Surgery: Yes Report Signatures Finalized by Bucky Prince MD on 12/17/2022 10:47 AM
--- NOTE | 2022-12-07 10:25 | W.PM.OPSUD ---
Surgery/Procedure H&P Update DATE OF PROCEDURE: December 07, 2022 DATE H&P PERFORMED: 12/06/22 H&P UPDATE INFORMATION: I have reviewed H&P completed within last 30 days, I have examined patient prior to procedure and No changes to prior documentation PREOP DIAGNOSIS: Worsening angina PRIMARY INDICATION FOR PROCEDURE: Worsening angina PLANNED PROCEDURE: Left heart cath with possible percutaneous coronary intervention PATIENT REASSESSED PRIOR TO SEDATION, WITH NO CHANGE NOTED: Yes PHYSICAL EXAM: alert, oriented x 3, clear to auscultation bilaterally and regular rate & rhythm AIRWAY EVAL/ANESTHESIA PLAN: normal airway, ASA III, Local Anesthesia, Risks, benefits & alternatives of sedation and/or procedure discussed and Patient agrees to continue as planned ADDITIONAL INFORMATION: Moderate sedation
[2022-12-07 10:31] LABS: Sodium 126 mmol/L (136-145)
--- NOTE | 2022-12-07 10:42 | PC.CHAP ---
Pastoral Care Encounter/Spiritual Assessment Type of Contact [] Declined brass molder helper visit [] Patient/Family/Request visit [] Outpatient visit [] Follow-up visit [] Physician referral [] Code/Alert [x] Routine visit [] Staff referral [] Actively dying [] Patient sleeping [] Family support [] [] Out of room [] Palliative care [] [x] Receiving care in room [] Pre-surgical visit [] Trauma [] Long length of stay [] ICU visit [] Other: Relational/Emotional Strength [x] Patient feels connected with others/family/visitors/staff [] Distress [] Loneliness/isolation [] Abandonment Spirituality of Patient [] Person of [place] [] Attends Moravian of their [place] [] Believes in Prayer [] Reads Bible or Sikhism materials [] There are Spiritual issues to be addressed Smoking Pipe Mounter Interventions [] Prayer [] Active listening [] Non-anxious presence [] Spiritual/emotional support [] Crisis/trauma care [] Spiritual counseling [] Bereavement support [] Provided bereavement packet [] Provided Bible/devotional materials [] Provided toy/stuffed animal, coloring book to patient or family member [] Provided Communion [] Anointing/[place] [] Salvation [] Completed spiritual assessment [] Other: Impact on Illness or Injury [] Angry [] Fearful [] Anxious [] Often cries [] Exhaustion [] Unable to work [] Unable to attend hindu [] Unable to walk/stand [] Unable to read [] Unable to drive [] Unable to eat/drink [] Unable to sleep [] Unable to be with family [] Patient intubated [] Other: Summary senior postghada well go home Time spent with patient 10 mins
[2022-12-07] MEDS: ipratropium-albuterol 3 mL Neb INHALATION ×3 (11:42→20:14)
[2022-12-07] MEDS: acetaminophen 325 mg Tablet 650 MG PO ×3 (11:43→23:08)
--- NOTE | 2022-12-07 12:49 | PM.MISC ---
Miscellaneous Note Purpose of Documentation: Brief procedure note Note: Left main artery: Mild 20-30% distal disease. LAD has severe mid vessel 80 to 85% stenosis. It is heavily calcified. 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 It has a severe mid vessel stenosis. RCA is nondominant vessel with no significant stenosis. Left circumflex artery underwent successful revascularization with 1 stent. Will need staged PCI of LAD next week as it is a complex lesion and will need arthrectomy versus shockwave IVL
[2022-12-07] MEDS: sodium chloride 0.9% 1,000 ML 50 ML IV (13:00)
--- NOTE | 2022-12-07 13:20 | PM.PN ---
Subjective Subjective: He is doing well this morning. Awaiting angiogram. At that time denies pain or discomfort. Vitals/I&O/Wt Last Vital Signs Temp 96.7 F L 12/07/22 12:00 Pulse 78 12/07/22 12:15 Resp 15 12/07/22 12:15 BP 92/48 12/07/22 12:15 Pulse Ox 88 L 12/07/22 12:15 O2 Del Method Room Air 12/07/22 11:43 12/06/22 12/07/22 12/07/22 22:59 06:59 14:59 Intake Total 0 / 0 Output Total 600 / 600 Balance -600 / -600 Weight last 48 hrs Weight 60.328 kg Weight 62.142 kg Physical Exam Const: COMMON NORMALS: patient oriented x3 and alert GENERAL APPEARANCE: cooperative ORIENTATION/CONSCIOUSNESS: Yes awake HENMT: COMMON NORMALS: oropharynx normal Neck/C-Spine: COMMON NORMALS: no JVD Chest: OTHER: Old thoracotomy scar Resp: COMMON NORMALS: normal respiratory effort and clear to auscultation bilaterally AUSCULTATION: clear to auscultation bilaterally Cardio: COMMON NORMALS: no JVD, regular rhythm, S1 normal heart sound present, S2 normal heart sound present and No murmurs present (Cardio) RHYTHM: regular rhythm HEART SOUNDS: S1 normal heart sound present and S2 normal heart sound present GI: COMMON NORMALS: Normal to inspection, nondistended, normoactive bowel sounds present, Soft to palpation and non-tender PALPATION: Yes Soft to palpation Extremity: COMMON NORMALS: no joint enlargement and no pedal edema Neuro: COMMON NORMALS: patient oriented x3 and moves all extremities SENSORIUM/ORIENTATION: Yes alert Data 12/07/22 04:12 12/07/22 09:58 A&P Assessment and plan (1) Hyponatremia: Reviewed chemistry, sodium slightly worse this morning down to 126. Started oral sodium chloride tablets. He has been n.p.o. this morning for angiogram. Resume regular diet once able. TSH reviewed, unremarkable. Additional sodium chloride levels requested. At risk of overcorrection with sodium replacement, risk of ODS. (2) Anginal equivalent: Pending further assessment with coronary angiography. Cardiology has been contacted in ER. Cholangiogram postponed for now pending reassessment of hyponatremia. Reassess renal function. Continue aspirin, Plavix, statin. Lisinopril. Nitroglycerin as needed. Cardiac monitoring. (3) Exertional dyspnea: Discussed with doctor of nurse anesthesia Dr. Irwin this morning pending angiogram. Interventional cardiology note by Dr. Prince reviewed, noted PCI LCx, plans for staged approach to severe LAD stenosis. As per discussion with doctor of nurse anesthesia today suspect component of decompensated CHF, was given a dose of Lasix. Reviewed chest x-ray. Reviewed CBC, noted mild anemia, hemoglobin decreased down to 10.4 acutely. Follow-up CBC requested. (4) Atherosclerotic heart disease of [place] coronary artery with other forms of angina pectoris: Continue aspirin, Plavix, statin, lisinopril. Does not appear to be on beta-charlene. Nitroglycerin as needed. (5) Internal carotid artery stent present: Discussed with cardiology. Carotid duplex has been requested as he had been lost to follow-up. Follow-up. (6) Aortic valve replaced: Echocardiogram reviewed, noted moderate aortic stenosis. Continue aspirin, statin. Follow-up with cardiology. Plan Status post PPM HTN: Continue lisinopril, hydralazine, amlodipine. Stop chlorthalidone. HLD COPD BPH: Continue Flomax Attestations Medical Necessity Statement*: Continue hospitalization for assessment management of worsened hyponatremia, status post PCI due to progressive severe CAD limiting activity. Diagnoses Hyponatremia E87.1 Anginal equivalent I20.89 Exertional dyspnea R06.09 Atherosclerotic heart disease of [place] coronary artery with other forms of angina pectoris I25.118 Internal carotid artery stent present Z95.828 Aortic valve replaced Z95.2
[2022-12-07 14:37] LABS: Partial Thromboplastin Time > 250.0 SECONDS (23.9-36.7)
[2022-12-07 17:23] LABS: Sodium 127 mmol/L (136-145)
[2022-12-07] MEDS: nicotine 21 mg Patch 1 PATCH TRANSDERMA (18:00)
[2022-12-07] MEDS: atorvastatin 40 mg Tablet 20 MG PO (18:01)
[2022-12-07 18:38] LABS: Partial Thromboplastin Time 34.7 SECONDS (23.9-36.7)
[2022-12-07] MEDS: mirtazapine 15 mg Tablet 7.5 MG PO (20:11)
[2022-12-07] MEDS: budesonide 0.5 mg/2 mL Neb INHALATION (20:14)
[2022-12-07] MEDS: temazepam 15 mg Capsule PO (22:26)
[2022-12-07 22:34] LABS: Sodium 128 mmol/L (136-145)
[2022-12-08] VITALS (8 sets, daily range): BP systolic 96–123; BP diastolic 47–58; PULSE 71–98; RESP 16–19; TEMP 36.4–36.7; O2SAT 94–96
[2022-12-08] MEDS: ondansetron 2 mg/ML SDV 2 mL 4 MG IVP (00:09)
[2022-12-08 04:55] LABS: Basophils # 0.1 10^3/uL (0.0-0.1); Basophils % 0.7 %; Eosinophils % 0.3 %; Lymphocytes # 0.6 10^3/uL (0.8-4.8); Lymphocytes % 6.9 %; Mean Corpuscular HGB Conc 33.4 g/dL (30-55); Mean Corpuscular Hemoglobin 32.9 pg (27-33); Mean Corpuscular Volume 98.5 fl (82-101); Mean Platelet Volume 9.6 fL (7.4-10.4); Monocytes # 0.8 10^3/uL (0.2-0.9); Monocytes % 9.3 %; Neutrophils # 7.33 10^3/uL (1.8-7.7); Neutrophils % 82.5 %; Nucleated Red Blood Cells % 0 %; Platelet Count 191 10^3/cmm (157-399); Red Blood Count 3.25 10^6/uL (3.85-5.65); Red Cell Distribution Width 12.4 % (12.1-15.1); White Blood Count 8.89 10^3/uL (3.29-11.43)
[2022-12-08 05:21] LABS: Anion Gap 16.3 (5-19); Blood Urea Nitrogen 23 mg/dL (8-23); Calcium 9.3 mg/dL (8.5-10.5); Carbon Dioxide 23 mmol/L (22-29); Chloride 98 mmol/L (98-107); Glucose 144 mg/dL (65-115); Osmolality Calculated 282 mOsm/kg (285-295); Potassium 4.3 mmol/L (3.5-5.1); Sodium 133 mmol/L (136-145)
--- NOTE | 2022-12-08 08:16 | PC.SOCIAL ---
IMM Update IMM not updated @ this time as patient is currently in observation status.
[2022-12-08] MEDS: ipratropium-albuterol 3 mL Neb INHALATION (09:02)
[2022-12-08] MEDS: budesonide 0.5 mg/2 mL Neb INHALATION (09:03)
--- NOTE | 2022-12-08 09:29 | PC.NURSE ---
notified doctor of pt's BP is in 117/52, pt has scheduled BP meds such as lisinopril 40 mg, hydralazine 100 mg TID, norvasc 10 mg and flomax. Verified to doctor if we can hold some BP meds this morning. received message back via secure [employer] messaging from to hold all these meds this morning.
[2022-12-08] MEDS: sodium chloride 1 gm Tablet PO (09:44)
[2022-12-08] MEDS: aspirin 81 mg EC Tablet 162 MG PO (09:44)
[2022-12-08] MEDS: clopidogrel 75 mg Tablet PO (09:44)
--- NOTE | 2022-12-08 09:47 | PC.NURSE ---
pt stated he usually takes flomax in the evening 2 tablets, 1 in the afternoon and 1 cap in the evening at 6;30 pm. med rec reconciled and reviewed. notified on this.
--- NOTE | 2022-12-08 12:32 | P.PN_ITS ---
Subjective Subjective: Patient is feeling better. Patient had related to left shoulder pain earlier this morning which subsided spontaneously. He denies associated shortness of breath or any other symptoms. [place] for couple of minutes and then subsided spontaneously. No fever or chills. 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 Dr. Prince performed the PCI on the artery. He also had a high-grade stenosis in the mid LAD. It was thought to intervene this lesion at a later date, because of the concern about dye overload and contrast-induced nephropathy Medications: Medication Review Details: Current Medications Acetaminophen (Acetaminophen 325 Mg Tablet) 650 mg PO Q6H PRN PRN Reason: Mild/Mod Pain Or Temp >/= 101 Last Admin: 12/07/22 23:08 Dose: 650 mg Al Hydrox/Mg Hydrox/Simethicone (Zgti-Nrg-Wnqwakdeg-Kristyn 30 Ml Udc) 30 ml PO Q15M PRN PRN Reason: INDIGESTION Albuterol/Ipratropium (Ipratropium-Albuterol 3 Ml Neb) 3 ml INHALATION QID.RESPIRATORY DK Last Admin: 12/08/22 11:07 Dose: Not Given Alprazolam (Alprazolam 0.5 Mg Tablet) 0.25 mg PO TID PRN PRN Reason: ANXIETY Amlodipine Besylate (Amlodipine 10 Mg Tablet) 10 mg PO DAILY DK Last Admin: 12/08/22 09:31 Dose: Not Given Aspirin (Aspirin 81 Mg Ec Tablet) 162 mg PO DAILY DK Last Admin: 12/08/22 09:44 Dose: 162 mg Atorvastatin Calcium (Atorvastatin 40 Mg Tablet) 20 mg PO QPM DK Last Admin: 12/07/22 18:01 Dose: 20 mg Atropine Sulfate (Atropine 1 Mg/Ml Sdv 1 Ml) 0.5 mg IVP PRN PRN PRN Reason: Symptomatic bradycardia Budesonide (Budesonide 0.5 Mg/2 Ml Neb) 0.5 mg INHALATION BID.RESPIRATORY DK Last Admin: 12/08/22 09:03 Dose: 0.5 mg Camphor/Menthol/Phenol (Blistex Lip Oint 7 Gm Tube) 1 applic TOPICAL PRN PRN PRN Reason: DRYNESS Stop: 12/11/22 16:59 Last Admin: 12/06/22 18:25 Dose: 1 applic Clopidogrel Bisulfate (Clopidogrel 75 Mg Tablet) 75 mg PO DAILY [facility] Last Admin: 12/08/22 09:44 Dose: 75 mg Enoxaparin Sodium (Enoxaparin 40 Mg/0.4 Ml Syringe) 40 mg SUBCUT Q24H [facility] Last Admin: 12/07/22 17:52 Dose: Not Given Fentanyl (Fentanyl 50 Mcg/Ml Inj 2ml) 50 mcg IVP PRN PRN PRN Reason: Pain Hydralazine HCl (Hydralazine 50 Mg Tablet) 100 mg PO TID [facility] Last Admin: 12/08/22 09:31 Dose: Not Given Lisinopril (Lisinopril 20 Mg Tablet) 40 mg PO DAILY [facility] Last Admin: 12/07/22 09:23 Dose: 40 mg Magnesium Hydroxide (Magnesium Hydroxide 30 Ml Udc) 30 ml PO DAILY PRN PRN Reason: CONSTIPATION Mirtazapine (Mirtazapine 15 Mg Tablet) 7.5 mg PO BEDTIME [facility] Last Admin: 12/07/22 20:11 Dose: 7.5 mg Naloxone HCl (Naloxone 0.4 Mg/Ml Sdv) 0.1 mg IVP Q2M PRN PRN Reason: RESPIRATORY RATE < 8/MIN Nicotine (Nicotine 21 Mg Patch) 1 patch TRANSDERMA Q24H [facility] Last Admin: 12/07/22 18:00 Dose: 1 patch Nicotine Polacrilex (Nicotine 4 Mg Lozenge) 4 mg MUCOUS MEM Q2H PRN PRN Reason: NICOTINE CRAVINGS Nitroglycerin (Nitroglycerin 0.4 Mg Sublingual Tablet) 0.4 mg SUBLINGUAL Q5M PRN PRN Reason: Chest Pain Ondansetron HCl (Ondansetron 2 Mg/Ml Sdv 2 Ml) 4 mg IVP Q8H PRN PRN Reason: vomiting, or N/V if npo Last Admin: 12/08/22 00:09 Dose: 4 mg Sodium Chloride (Sodium Chloride 1 Gm Tablet) 1 gm PO BID [facility] Last Admin: 12/08/22 09:44 Dose: 1 gm Tamsulosin HCl (Tamsulosin 0.4 Mg Capsule) 0.4 mg PO BID [facility] Last Admin: 12/08/22 09:47 Dose: Not Given Temazepam (Temazepam 15 Mg Capsule) 15 mg PO BEDTIME PRN PRN Reason: INSOMNIA Last Admin: 12/07/22 22:26 Dose: 15 mg Vitals/I&O/Wt Last Vital Signs Temp 98.0 F 12/08/22 12:00 Pulse 95 12/08/22 12:00 Resp 18 12/08/22 12:00 BP 123/58 12/08/22 12:00 Pulse Ox 96 12/08/22 12:00 O2 Del Method Room Air 12/08/22 10:39 12/07/22 12/08/22 12/08/22 22:59 06:59 14:59 Intake Total 400 / 400 1200 / 1600 120 / 120 Output Total 450 / 450 100 / 100 Balance -50 / -50 1200 / 1150 20 / 20 Weight last 48 hrs Weight 136 lb 3.2 oz Weight 133 lb Physical Exam Const: OTHER: GENERAL: The patient is alert and oriented times three. Not in any acute distre ss. HEENT: No significant pallor, icterus or lymphadenopathy.Oral cavity: There are no mucous membrane lesions. NECK: Trachea appears to be central. No masses noted. No JVD or thyromegaly appreciated. RESPIRATORY: Chest is symmetrical. No intercostals muscle retraction or any accessory muscle activation. There is no chest wall tenderness. Breath sounds are heard bilaterally. No rales or rhonchi heard. No evidence of any consolidation. BREASTS: Deferred. HEART: The heart sounds are normal. No S3 or S4. No significant murmurs. No pericardial rub ABDOMEN: No vessel pulsations or distention. No tenderness. No organomegaly appreciated. Bowel sounds are normally heard. : Deferred. RECTAL: Deferred. LYMPHATIC: No lymphadenopathy noted in the neck. EXTREMITIES: No edema or cyanosis. No clubbing. MUSCULOSKELETAL: No acute joint deformities or swelling SKIN: There are no significant rashes or ecchymosis NEUROPSYCHIATRIC: The patient is alert and oriented x3. Appears to be in a good mood. No tremors or rigidity noted. Data 12/08/22 04:18 12/08/22 04:18 Other Labs: Laboratory Last Values WBC 8.89 10^3/uL (3.29-11.43) 12/08/22 04:18 RBC 3.25 10^6/uL (3.85-5.65) L 12/08/22 04:18 Hgb 10.70 g/dL (11.27-16.99) L 12/08/22 04:18 Hct 32.0 % (37-53) L 12/08/22 04:18 MCV 98.5 fl (82-101) 12/08/22 04:18 MCH 32.9 pg (27-33) 12/08/22 04:18 MCHC 33.4 g/dL (30-55) 12/08/22 04:18 RDW 12.4 % (12.1-15.1) 12/08/22 04:18 Plt Count 191 10^3/cmm (157-399) 12/08/22 04:18 MPV 9.6 fL (7.4-10.4) 12/08/22 04:18 Neut % (Auto) 82.5 % 12/08/22 04:18 Lymph % (Auto) 6.9 % 12/08/22 04:18 [place] % (Auto) 9.3 % 12/08/22 04:18 Eos % (Auto) 0.3 % 12/08/22 04:18 Baso % (Auto) 0.7 % 12/08/22 04:18 Neut # (Auto) 7.33 10^3/uL (1.8-7.7) 12/08/22 04:18 Lymph # (Auto) 0.6 10^3/uL (0.8-4.8) L 12/08/22 04:18 [place] # (Auto) 0.8 10^3/uL (0.2-0.9) 12/08/22 04:18 Eos # (Auto) 0.0 10^3/uL (0.0-0.8) 12/08/22 04:18 Baso # (Auto) 0.1 10^3/uL (0.0-0.1) 12/08/22 04:18 Nucleated RBC % (auto) 0 % 12/08/22 04:18 Nucleated RBCs # 0.0 /100WBC 12/08/22 04:18 APTT 34.7 SECONDS (23.9-36.7) D 12/07/22 17:53 Sodium 133 mmol/L (136-145) L 12/08/22 04:18 Potassium 4.3 mmol/L (3.5-5.1) 12/08/22 04:18 Chloride 98 mmol/L (98-107) 12/08/22 04:18 Carbon Dioxide 23 mmol/L (22-29) 12/08/22 04:18 Anion Gap 16.3 (5-19) 12/08/22 04:18 BUN 23 mg/dL (8-23) 12/08/22 04:18 Creatinine 1.3 mg/dL (0.7-1.2) H 12/08/22 04:18 GFR Calculation Not Reportable 12/08/22 04:18 Glucose 144 mg/dL (65-115) H 12/08/22 04:18 Calculated Osmolality 282 mOsm/kg (285-295) L 12/08/22 04:18 Calcium 9.3 mg/dL (8.5-10.5) 12/08/22 04:18 Total Bilirubin 0.6 mg/dL (0.15-1.2) 12/06/22 10:43 AST 28 U/L (0-40) 12/06/22 10:43 ALT 18 U/L (0-41) 12/06/22 10:43 Alkaline Phosphatase 92 U/L (40-130) 12/06/22 10:43 Troponin T Gen 5 ng/L 61 ng/L (0-15) H 12/07/22 04:12 Total Protein 6.7 g/dL (6.6-8.7) 12/06/22 10:43 Albumin 4.5 g/dL (3.5-5.2) 12/06/22 10:43 Globulin 2.2 g/dL (1.3-4.6) 12/06/22 10:43 TSH 1.06 uIU/mL (0.27-4.20) 12/06/22 10:43 Other data: The EKG from today revealed a sinus rhythm with a left bundle branch block pattern. Left axis deviation. No significant change from the previous EKG A&P Assessment and plan (1) Atherosclerotic heart disease [place] coronary artery w/angina pectoris: Patient underwent a cardiac catheterization yesterday.. Found to have a high- grade ulcerated lesion in the mid circumflex artery and another high-grade stenosis in the mid LAD . The circumflex lesion was intervened. It was decided to do a staged intervention on the left anterior descending artery at a later date. (2) Hyponatremia: The latest sodium is 133. We will continue the same. (3) Acute decompensated heart failure: Patient was given a dose of Lasix yesterday. We may continue the as needed Lasi x. (4) Aortic valve replaced: Patient had a redo aortic valve in 2015. Has not had echocardiogram since 2020. The sodium is improved to 133 the echocardiogram revealed moderate aortic valve stenosis at this point. A repeat echocardiogram would be helpful in a year. 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 Currently seems to be doing okay. No significant leg pain. (6) Status post cardiac pacemaker procedure: The pacemaker function was found to be appropriate. May continue on the current management. (7) Internal carotid artery stent present: He has 50 to 69% gnosis bilaterally. Currently he is asymptomatic Plan The other problems are Mild anemia History of type 2 diabetes History of smoking abuse COPD The patient is advised to start ambulating on telemetry. If he has no recurrence of chest pain or shortness of breath, he may be discharged home. Because of his abnormal kidney function, he will be seen next week in the office to have a repeat BMP. If the BMP is acceptable, we may schedule him for a PCI of the mid LAD lesion Attestations Medical Necessity Statement*: Possible discharge home today Coding Level of Care Code 35820 Diagnoses Atherosclerotic heart disease [place] coronary artery w/angina pectoris I25.119 Hyponatremia E87.1 Acute decompensated heart failure I50.9 Aortic valve replaced Z95.2 Peripheral arterial occlusive disease I77.9 Status post cardiac pacemaker procedure Z95.0 Internal carotid artery stent present Z95.828
--- NOTE | 2022-12-08 12:37 | PM.DCS ---
Discharge Providers Date of Admission: 12/06/22 13:31 Date of Discharge: December 08, 2022 Attending Provider at Admission: Ankush Watkins Attending Provider at Discharge: Ankush Watkins Primary Care Provider: Annabel Medina MD Diagnoses at Discharge Discharge Diagnosis (1) Atherosclerotic heart disease [place] coronary artery w/angina pectoris: Status: Acute (2) Hyponatremia: Status: Acute (3) Acute decompensated heart failure: Status: Acute (4) Aortic valve replaced: Status: Acute (5) Peripheral arterial occlusive disease: Status: Acute (6) Status post cardiac pacemaker procedure: Status: Acute (7) Internal carotid artery stent present: Status: Acute Reason for Visit Reason for Visit: sent per Dr. Irwin Brief History: Pleasant 77-year-old gentleman with history of CAD, with exertional dyspnea and angina has been scheduled for additional assessment by coronary angiogram which for now has been deferred as he has been found to be more hyponatremic than usual.? His sodium does not infrequently run in the low 130s, but this is lower than usual.? He reports for a while he used to be on diuretic, however, at some point this was discontinued about a month ago, he subsequently gained quite a bit of water weight, was also getting dyspneic with exertion.? She was subsequently started on chlorthalidone, has lost the water weight, has not had any further edema.? Has still been having exertional dyspnea and angina due to which she is being set up with evaluation by coronary angiography.? In addition he states his appetite has not been very good, he has not been eating very well.? He also limits sodium intake.? Denies nausea vomiting or diarrhea. Hospital Course Hospital Course Hyponatremia, likely secondary to chlorthalidone. This was discontinued. Initially received small mount of hydration, her Giurgius is discontinued, with concern for decompensation of CHF recently was given a dose of IV Lasix. Sodium initially improved up to 128, but with some fall back to 126, was started on oral sodium chloride tablets. Sodium eventually up to 133. He is asked to discontinue chlorthalidone at discharge. Please avoid thiazide diuretics. Please follow-up sodium level. Discontinue sodium chloride tablets if maintaining 7 chloride within acceptable range. Coronary angiogram initially postponed, subsequently assessed by cardiology and proceeded with Coronary angiogram due to recent severe exertional limitation with dyspnea, left-sided shoulder pain, with finding of several severely stenotic lesions. Underwent PCI of left circumflex, and cardiology discussed with him and scheduled plans for staged procedure for PCI of LAD lesion for which she is to return. Physical Exam Narrative: Wants to discharge home. DeniesHe is sitting up in bed. He is doing well. Denies any chest pain or pressure. He issues with access site. No pain or discomfort. No bruising or swelling. Const: COMMON NORMALS: patient oriented x3 and alert GENERAL APPEARANCE: cooperative ORIENTATION/CONSCIOUSNESS: Yes awake HENMT: COMMON NORMALS: oropharynx normal Neck/C-Spine: COMMON NORMALS: no JVD Chest: OTHER: Old thoracotomy scar Resp: COMMON NORMALS: normal respiratory effort and clear to auscultation bilaterally AUSCULTATION: clear to auscultation bilaterally Cardio: COMMON NORMALS: no JVD, regular rhythm, S1 normal heart sound present, S2 normal heart sound present and No murmurs present (Cardio) RHYTHM: regular rhythm HEART SOUNDS: S1 normal heart sound present and S2 normal heart sound present GI: COMMON NORMALS: Normal to inspection, nondistended, normoactive bowel sounds present, Soft to palpation and non-tender PALPATION: Yes Soft to palpation Extremity: COMMON NORMALS: no joint enlargement and no pedal edema OTHER: R groin access site w/o bruising, swelling or pulsatilie mass. RLE appears perfused. Neuro: COMMON NORMALS: patient oriented x3 and moves all extremities SENSORIUM/ORIENTATION: Yes alert Discharge Data Studies Completed and Pending Completed Studies During Hospitalization Category Date Time Status CXRP [XR chest 1V portable [id number]] Stat Exams 12/06/22 13:37 Completed CV. 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 Laboratory Results WBC 8.89 10^3/uL (3.29-11.43) 12/08/22 04:18 RBC 3.25 10^6/uL (3.85-5.65) L 12/08/22 04:18 Hgb 10.70 g/dL (11.27-16.99) L 12/08/22 04:18 Hct 32.0 % (37-53) L 12/08/22 04:18 MCV 98.5 fl (82-101) 12/08/22 04:18 MCH 32.9 pg (27-33) 12/08/22 04:18 MCHC 33.4 g/dL (30-55) 12/08/22 04:18 RDW 12.4 % (12.1-15.1) 12/08/22 04:18 Plt Count 191 10^3/cmm (157-399) 12/08/22 04:18 MPV 9.6 fL (7.4-10.4) 12/08/22 04:18 Neut % (Auto) 82.5 % 12/08/22 04:18 Lymph % (Auto) 6.9 % 12/08/22 04:18 [place] % (Auto) 9.3 % 12/08/22 04:18 Eos % (Auto) 0.3 % 12/08/22 04:18 Baso % (Auto) 0.7 % 12/08/22 04:18 Neut # (Auto) 7.33 10^3/uL (1.8-7.7) 12/08/22 04:18 Lymph # (Auto) 0.6 10^3/uL (0.8-4.8) L 12/08/22 04:18 [place] # (Auto) 0.8 10^3/uL (0.2-0.9) 12/08/22 04:18 Eos # (Auto) 0.0 10^3/uL (0.0-0.8) 12/08/22 04:18 Baso # (Auto) 0.1 10^3/uL (0.0-0.1) 12/08/22 04:18 Nucleated RBC % (auto) 0 % 12/08/22 04:18 Nucleated RBCs # 0.0 /100WBC 12/08/22 04:18 APTT 34.7 SECONDS (23.9-36.7) D 12/07/22 17:53 Sodium 133 mmol/L (136-145) L 12/08/22 04:18 Potassium 4.3 mmol/L (3.5-5.1) 12/08/22 04:18 Chloride 98 mmol/L (98-107) 12/08/22 04:18 Carbon Dioxide 23 mmol/L (22-29) 12/08/22 04:18 Anion Gap 16.3 (5-19) 12/08/22 04:18 BUN 23 mg/dL (8-23) 12/08/22 04:18 Creatinine 1.3 mg/dL (0.7-1.2) H 12/08/22 04:18 GFR Calculation Not Reportable 12/08/22 04:18 Glucose 144 mg/dL (65-115) H 12/08/22 04:18 Calculated Osmolality 282 mOsm/kg (285-295) L 12/08/22 04:18 Calcium 9.3 mg/dL (8.5-10.5) 12/08/22 04:18 Total Bilirubin 0.6 mg/dL (0.15-1.2) 12/06/22 10:43 AST 28 U/L (0-40) 12/06/22 10:43 ALT 18 U/L (0-41) 12/06/22 10:43 Alkaline Phosphatase 92 U/L (40-130) 12/06/22 10:43 Troponin T Gen 5 ng/L 61 ng/L (0-15) H 12/07/22 04:12 Total Protein 6.7 g/dL (6.6-8.7) 12/06/22 10:43 Albumin 4.5 g/dL (3.5-5.2) 12/06/22 10:43 Globulin 2.2 g/dL (1.3-4.6) 12/06/22 10:43 TSH 1.06 uIU/mL (0.27-4.20) 12/06/22 10:43 Vitals Last Vital Signs Temp 98.0 F 12/08/22 12:00 Pulse 95 12/08/22 12:00 Resp 18 12/08/22 12:00 BP 123/58 12/08/22 12:00 Pulse Ox 96 12/08/22 12:00 O2 Del Method Room Air 12/08/22 10:39 Discharge Plan Discharge Patient Disposition: Home Condition: Stable Prescriptions: New sodium chloride 1,000 mg Tablet,Soluble 1,000 mg PO BID Qty: 14 0RF Continued multivitamin Tablet 1 tab PO DAILY aspirin [Adult Low Dose Aspirin] 81 mg tablet,delayed release (DR/EC) 162 mg PO DAILY clopidogrel 75 mg tablet 75 mg PO DAILY hydralazine 50 mg tablet 100 mg PO TID 30 Days Qty: 180 5RF lisinopril 40 mg tablet 40 mg PO DAILY Qty: 90 1RF mirtazapine 15 mg tablet 7.5 mg PO BEDTIME Fish Oil 300-1,000 mg Capsule 1 cap PO DAILY Trelegy Ellipta 200-62.5-25 mcg blister with device 1 ea INHALATION DAILY tamsulosin 0.4 mg capsule 0.8 mg PO QPM Patient Comments: Patient takes 1 capsule in the afternoon at 3 pm and 1 cap in the evening at 6:30 PM per patient home regimen. amlodipine 10 mg tablet 10 mg PO DAILY simvastatin 20 mg tablet 20 mg PO QPM Nitrostat 0.4 mg Tablet, Sublingual 0.4 mg SUBLINGUAL Q5M PRN (Reason: Chest Pain) Rx Instructions: do not exceed 3 doses per episode Discontinued chlorthalidone 25 mg tablet 25 mg PO DAILY Discharge Orders: Discharge Order (Routine); Ordered 12/08/22 Ordered By: Ankush Watkins Referrals: Annabel Medina MD [Primary Care Provider] - 12/15/22 10:30 am Kavon Irwin MD [Physician] - (Your Dr. Irwin follow up will be scheduled during your Judi Alvarado appointment. Thank you.) Judi Alvarado FNP [Nurse Practitioner] - 12/14/22 9:30 am Discharge Diet: Cardiac Discharge Activity: Increase activity as tolerated and Limit activity as instructed Patient Instructions: Sodium Chloride (By mouth) (Natrum Mur), Hyponatremia (GEN), Coronary Intravascular Stent Placement (DC), CHF Stoplight, Opioid Safety, Post Angiogram Home Care Instructions Activity Restrictions/Additional Instructions: Please have your primary provider follow up sodium in office in 4-7 days. Continue sodium chloride tablets for now. Please discontinue chlorthalidone. Please check your blood pressure at home at least twice a day. If any concerns for low BP or chest pain, please call your doctors right away. Continue aspirin and plavix. Follow up with cardiology for reassessment of coronary artery disease and plans for reopening of additional severely narrowed vessel. Do not stop aspirin and plavix unless done under guidance of your treatment team. In case of any worsening or new concerning symptoms, chest pain or pressure, pulsatile mass, swelling or bleeding in the right groin or other concerns seek medical attention. Discharge Attestations Time Spent in Discharge Care*: greater than 30 min Status at Discharge: Cognitive status at discharge: cognitively intact, Quality Metrics Clinical Quality Measures [ No reported AMI, CVA or VTE this stay] Coding Level of Care Code 25914 Total time (in minutes) for Discharge: 45 Diagnoses Atherosclerotic heart disease [place] coronary artery w/angina pectoris I25.119 Hyponatremia E87.1 Acute decompensated heart failure I50.9 Aortic valve replaced Z95.2 Peripheral arterial occlusive disease I77.9 Status post cardiac pacemaker procedure Z95.0 Internal carotid artery stent present Z95.828
--- NOTE | 2022-12-08 12:50 | ECG_ITS ---
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 Measurements Intervals [place] Rate: 88 P: 64 MI: 210 QRS: -39 QRSD: 170 T: 84 QT: 407 QTc: 494 Interpretive Statements SINUS RHYTHM WITH FIRST DEGREE AV BLOCK LEFT AXIS DEVIATION [QRS AXIS < -30] LEFT BUNDLE BRANCH BLOCK [120+ ms QRS DURATION, 80+ ms Q/S IN V1/V2, 85+ ms R IN I/aVL/V5/V6] Compared to ECG 12/07/2022 08:54:42 First degree AV block now present Left-axis deviation now present Electronically Signed On 12-08-2022 14:50:44 CDT by Trish Munson M.D. [id number]
--- NOTE | 2022-12-08 12:51 | PC.NURSE ---
pt stated he has an episode of chest pain w/nausea this around 4 am this morning pt has been up since 7 am this morning and now. pt denies any chest pain or discomfort. Dr Irwin notified in person and he verbal order to get an ekg now and followup for the carotid order duplex from yesterday.
--- NOTE | 2022-12-08 13:50 | PC.NURSE ---
Pt ambulated down hallways Pt denies any sob, chest pain or discomfort.
== END 2022-12-08 14:30 | disposition home or self-care (01) ==
LOC: ER 13:43 → CSU 14:12
PROVIDERS: Emergency Medicine; Internal Medicine; Internal Medicine Cardiovascular Disease; Admitting Provider Internal Medicine; Emergency Provider Family Medicine; PCP Internal Medicine; Visit Provider Internal Medicine
DX: I25.119 Atherosclerotic heart disease of native coronary artery with unspecified angina pectoris (principal); E87.1 Hypo-osmolality and hyponatremia; I50.9 Heart failure, unspecified; Z95.2 Presence of prosthetic heart valve; I77.9 Disorder of arteries and arterioles, unspecified; Z95.0 Presence of cardiac pacemaker; Z95.828 Presence of other vascular implants and grafts; E11.9 Type 2 diabetes mellitus without complications; Z79.82 Long term (current) use of aspirin; I05.9 Rheumatic mitral valve disease, unspecified; I07.1 Rheumatic tricuspid insufficiency; I44.7 Left bundle-branch block, unspecified; F17.210 Nicotine dependence, cigarettes, uncomplicated
CPT/HCPCS: 36415; 71045; 80048; 80053; 84295; 84443; 84484; 85025; 85347; 85730; 93005; 93306; 93455; 93880; 94640; 96372; 96374; 96375; 96376; 99152; 99153; 99285; C1725; C1769; C1874; C1887; C1894; C9600; G0378; J1200; J1644; J1650; J1940; J2250; J2405; J3010; J7030; J7626; Q9967

== ENCOUNTER → 2022-12-14 09:36 | Outpatient (BNVA) | payer MEDICARE, SELFPAY | PROVIDERS: PCP Internal Medicine; Visit Provider Nurse Practitioner Family | DX: I25.119 Atherosclerotic heart disease of native coronary artery with unspecified angina pectoris (principal); F17.200 Nicotine dependence, unspecified, uncomplicated; I10 Essential (primary) hypertension | CPT/HCPCS: 36415; 80048; 99214 ==

== ENCOUNTER 2023-01-29 12:17 | Outpatient (CLI) | payer OTHER, SELFPAY ==
[2023-01-29 12:38] LABS: Basophils % 0.4 %; Eosinophils # 0.1 10^3/uL (0.0-0.8); Eosinophils % 1.2 %; Hematocrit 31.8 % (37-53); Lymphocytes % 10.2 %; Mean Corpuscular HGB Conc 33.3 g/dL (30-55); Mean Corpuscular Hemoglobin 33.1 pg (27-33); Mean Corpuscular Volume 99.4 fl (82-101); Mean Platelet Volume 9.2 fL (7.4-10.4); Monocytes % 10.7 %; Neutrophils # 7.16 10^3/uL (1.8-7.7); Neutrophils % 77.2 %; Nucleated Red Blood Cells % 0 %; Platelet Count 217 10^3/cmm (157-399); Red Cell Distribution Width 13.9 % (12.1-15.1); White Blood Count 9.28 10^3/uL (3.29-11.43)
[2023-01-29 12:55] LABS: Anion Gap 14.4 (5-19); Blood Urea Nitrogen 17 mg/dL (8-23); Calcium 9.3 mg/dL (8.5-10.5); Carbon Dioxide 23 mmol/L (22-29); Chloride 98 mmol/L (98-107); Glucose 142 mg/dL (65-115); Osmolality Calculated 276 mOsm/kg (285-295); Potassium 4.4 mmol/L (3.5-5.1); Sodium 131 mmol/L (136-145)
[2023-01-29 20:21] LABS: Estmated Average Glucose 105; Hemoglobin A1C 5.3 % (4.0-6.0)
== END 2023-01-29 12:18 | disposition home or self-care (01) ==
LOC: LAB 12:18
PROVIDERS: PCP Internal Medicine; Visit Provider Internal Medicine Cardiovascular Disease
DX: I25.119 Atherosclerotic heart disease of native coronary artery with unspecified angina pectoris (principal); R06.09 Other forms of dyspnea; R06.02 Shortness of breath; E87.1 Hypo-osmolality and hyponatremia; I10 Essential (primary) hypertension
CPT/HCPCS: 36415; 80048; 83036; 85025

== ENCOUNTER 2023-02-01 11:04 | Observation (INO) | payer OTHER, SELFPAY ==
[2023-02-01] VITALS (26 sets, daily range): BP systolic 90–145; BP diastolic 35–74; PULSE 62–103; RESP 12–26; TEMP 36.9; O2SAT 93–97; BMI 19.8; BMI 22.6
--- NOTE | 2023-02-01 | XACV_ITS ---
Exam Room: 2 Ht: 173 cm Wt: 59 kg BSA: 1.68 m2 Gender: Male : 1945 Any Known Allergies: Other Exam Priority: Routine Procedure(s): Procedure Description: Diagnostic procedure Procedure Description: PCI procedure Procedure Description: Coronary IVUS Procedure Description: Drug Eluting Coronary Stent Procedure Description: PTCA Procedure Description: Miscellaneous Procedure Description: ACT Procedure Description: Coronary Angiography Diagnostic Cath Status: Elective Diagnostic Findings * INDICATION: 77 Yr old man with PMH of aortic valve replacement x 2 who underwent PCI of LCx 2 months back and is here for staged PCI of mid LAD. It is calcified. Plan for PCI with shockwave IVL and stenting. May require arthrectomy. Patient has exertional anginal symptoms and fatigue. * This is a staged PCI procedure, for full diagnostic cath report, please refer to cath report from 12/07/2022. * Left Main has no significant disease. * Proximal Left Anterior Descending: obstructive, calcified 70-80% stenosis, JUAN: 3 flow. On diagnostic cardiac catheterization from 2 months back, proximal LAD stenosis was obscured. However it was more evident on cardiac catheterization with guide injection. Significant calcification. This was confirmed with inability to cross balloons/IVUS catheter.. * Mid Left Anterior Descending: severe long, calcified 80-90% stenosis, JUAN: 3 flow. PCI Status: Elective PCI Indication: Staged PCI Interventional Findings * PROCEDURE DETAIL: We engaged left main artery with XB 3.5 guide catheter. IV heparin was administered to maintain anticoagulation. 0.014 run-through guidewire was used to cross the stenosis and was put in distal vessel. We initially tried to perform IVUS and cross into mid LAD however IVUS catheter would not even cross the proximal segment of the vessel. This confirmed severe stenosis of proximal vessel. On IVUS images of the very proximal LAD, there was concentric calcification seen. However the lesion itself could not be assessed as it was not crossable. We then performed balloon angioplasty with 3.0 x 12 mm semicompliant balloon and proximal LAD. This was followed by balloon angioplasty with 2.5 x 12 mm shockwave intravascular lithotripsy balloon. We then placed 3.5 x 22 mm resolute [place] drug-eluting stent with guideliner support. We then performed balloon angioplasty of mid LAD stenosis with 2.0 x 15 mm semicompliant balloon as noted below to cross. This vessel was both tortuous and calcified. Shockwave balloon could not cross the stenosis. We dilated it with 2.5 x 12 mm semicompliant balloon. Then we attempted to advance the stent however it would not cross the stenosis. At this time we decided to abort further attempts at stent placement. Plan for medical therapy of mid LAD stenosis versus high risk PCI with arthrectomy. Given tortuosity, the procedure will be high risk. Guidewire and guide catheter were removed. Patient left the Payroll And Benefits Assistant in a stable condition.. * Proximal Left Anterior Descendin% stenosis treated with a AB TREK 3.00X12 RX BALLOON, 2.5kcQ12ck Shockwave, and MDT R CHAPARRO 3.5X22 KODI. 0% residual stenosis, JUAN: 3 flow. * Mid Left Anterior Descendin% stenosis treated with a AB MINI TREK 2.00X15 RX BALLOON, and AB TREK 2.50X12 RX BALLOON. 0% residual stenosis, JUAN: 3 flow. Conclusions 1. Severe proximal LAD stenosis s/p successful revascularization with intravascular lithotripsy shockwave balloon angioplasty and stent x 1. 2. Severe mid LAD stenosis. Unable to cross shockwave balloon or stent. Medical therapy vs high risk PCI with arthrectomy. Options discussed with patient and family. At this time patient wants medical therapy of mid LAD stenosis. If becomes symptomatic, will proceed with PCI with arthrectomy. 3. Proximal Left Anterior Descending was treated with a Balloon, Balloon, and Drug Eluting Stent. 4. Mid Left Anterior Descending was treated with a Balloon, and Balloon. Recommendations * Dual anti-platelet therapy with aspirin and plavix for atleast 1 year. * High intensity statin therapy. * Outpatient cardiology follow up in 4 weeks. Interventional RX Recommendation: PCI w/o planned CABG Diagnostic RX Recommendation: PCI w/o planned CABG Anticoagulation: Heparin Pressures Phase:Rest AO : 112 / 41 ( 67 ) @ 9:44:00 AM 79 / 38 ( 54 ) @ 9:53:00 AM 82 / 31 ( 49 ) @ 10:00:00 AM 93 / 39 ( 60 ) @ 10:05:00 AM 75 / 39 ( 54 ) @ 10:10:00 AM 82 / 48 ( 63 ) @ 10:16:00 AM 103 / 45 ( 66 ) @ 10:29:00 AM 81 / 52 ( 65 ) @ 10:42:00 AM Clinical Evaluation EBL: 5mL-10mL Procedural Details RT Tejas(R) was relieved by Reina Perez RN as monitoring person. Procedure Consent Obtained. Admit Source: Out Patient. Pre-Procedure Time Out. Identified patient by full name and date of as verbalized by the patient/guarantor. Does the consent match the physician's order: Yes. Accurate & Complete Informed Consent: Yes. Inpatient/Outpatient History & Physical on Chart: Yes. If H&P is completed, is and addenduem needed: Yes; If yes, is the addendum complete: Yes. Visualize and Verify Site with Patient/Guarantor: N/A. Relevant Radiology Images available: Yes. The risks, benefits, and alternatives of sedation and/or procedure were discussed by physician. The patient agrees to continue. Procedure started. [facility] Clinical Fraility Score: 4: Vulnerable. Payroll And Benefits Assistant Indications: Stable Known CAD. Chest Pain Symptom Assessment: Atypical Angina. Correct patient, site and procedure confirmed by cath team. Current diagnosis: Staged PCI of LAD. PERRLA. Strong, equal hand correctional corporal bilaterally. Lungs clear x 5 lobes. IV Site on Arrival: 18 gauge in the left anticubital. IV Fluids: 0.9% NaCl at KVO. 0 mL infused prior to labourers. Pre Procedural Pulses: bilateral dorsalis pedis was 3+. Pre Procedural Pulses: bilateral posterior tibial was 3+. Pre Procedural Pulses: bilateral radial was 3+. Oxygen started at 2liters/min via nasal canula. bilateral groins was prepped with chloroprep then draped in the usual sterile fashion. Physician notified. Baseline sample Acquired. HR: 96 BPM. Physician arrived. Physician scrubbed in. Immediate Pre-Procedure Time Out. Correct Patient: Yes; Correct Procedure: Yes; Correct Site: Yes; Correct Patient Position: Yes; Correct Supplies: Yes; Dried Flammable Prep: Yes; Blood Products Available: No;. Lidocaine 1% infiltrated to the right groin. Ultrasound obtained to assist with arterial access. Arterial access obtained with micropuncture set. Unable to advance wire. Wire and needle out. Manual pressure was held as needed to stop the bleeding. Arterial access obtained with micropuncture set. Unable to advance wire. Wire and needle out. Manual pressure was held as needed to stop the bleeding. Lidocaine 1% infiltrated to the left groin. An attempt to gain access to the left femoral artery was unsuccessful. Manual pressure was held as needed to stop the bleeding. Arterial access obtained with micropuncture set. Hand injection through sheath. 6 spanish XB 3.5 guide catheter was inserted over the wire. Runthrough guidewire was advanced through the guide catheter to lesion in the mid LAD. IVUS catheter in over runthrough wire. IVUS unable to cross to mid LAD lesion. IVUS run completed of proximal LAD. IVUS catheter out. Balloon inserted to lesion in the mid LAD. Inflation number : 1 A AB MINI TREK 2.00X15 RX BALLOON was prepped and advanced across the Mid LAD , then inflated to 8 DILLAN for 0:22 seconds. Balloon out. ACT drawn. Results - out of range high. Therapeutic limits - pre-heparin administration 90-150 seconds and monitoring heparin during a vascular procedure >250 seconds. Shockwave IVL balloon in over runthrough wire to lesion in mid LAD. Unable to cross, Balloon out over wire. 6Fr Guideliner catheter in over runthrough wire. Shockwave IVL balloon in over runthrough wire to lesion in mid LAD. Unable to cross, Balloon out over wire. Balloon inserted to lesion in the prox LAD. Inflation number : 1 A AB TREK 3.00X12 RX BALLOON was prepped and advanced across the Prox LAD , then inflated to 6 DILLAN for 0:15 seconds. Inflation number: 2 The AB TREK 3.00X12 RX BALLOON was reinflated across the Prox LAD, to 4 DILLAN for 0:13 seconds. Inflation number: 3 The AB TREK 3.00X12 RX BALLOON was reinflated across the Prox LAD, to 4 DILLAN for 0:14 seconds. Balloon out. Shockwave IVL balloon in over runthrough wire to lesion in prox LAD. Inflation number : 4 A 2.0waS50sf Shockwave was prepped and advanced across the Prox LAD , then inflated to 2 DILLAN for 0:15 seconds. Inflation number: 5 The 2.8mqS33ol Shockwave was reinflated across the Prox LAD, to 2 DILLAN for 0:17 seconds. Inflation number: 6 The 2.4oqW26dx Shockwave was reinflated across the Prox LAD, to 2 DILLAN for 0:26 seconds. Shockwave balloon out over wire. Balloon inserted to lesion in the prox LAD. Inflation number: 7 The AB TREK 3.00X12 RX BALLOON was reinflated across the Prox LAD, to 8 DILLAN for 0:10 seconds. Inflation number: 8 The AB TREK 3.00X12 RX BALLOON was reinflated across the Prox LAD, to 8 DILLAN for 0:17 seconds. Balloon out. Stent inserted to lesion in the prox LAD. Inflation Number : 9 A MDAnel R CHAPARRO 3.5X22 KODI -Lot Number# [id number] EXP 06-12-25 was prepped and advanced across the Prox LAD. The stent was deployed at 12 DILLAN for 0:21 seconds. Stent balloon out over wire. Results checked. ACT drawn. Results - out of range high. Therapeutic limits - pre-heparin administration 90-150 seconds and monitoring heparin during a vascular procedure >250 seconds. Shockwave IVL balloon in over runthrough wire to lesion in mid LAD. Unable to cross mid LAD lesion with Shockwave IVL balloon, balloon removed over wire. Balloon inserted to lesion in the mid LAD. Inflation number : 2 A AB TREK 2.50X12 RX BALLOON was prepped and advanced across the Mid LAD , then inflated to 8 DILLAN for 0:19 seconds. Inflation number: 3 The AB TREK 2.50X12 RX BALLOON was reinflated across the Mid LAD, to 8 DILLAN for 0:11 seconds. Inflation number: 4 The AB TREK 2.50X12 RX BALLOON was reinflated across the Mid LAD, to 8 DILLAN for 0:12 seconds. Balloon out. Stent inserted to lesion in the mid LAD. Unable to cross lesion, Intact 2.5mm X 26mm stent out over wire. Guideliner out. Stent inserted to lesion in the mid LAD. Unable to cross lesion. Intact 2.5mm X 12mm stent out over wire. Wire out. Guide catheter out over standard wire. ACT drawn. Results - out of range high reults. Therapeutic limits - pre-heparin administration 90-150 seconds and monitoring heparin during a vascular procedure >250 seconds. A Suture was successful obtaining hemostatsis at the Right Femoral artery insertion site. Sheath(s) sutured into position with 2-0 silk and sterile 4x4's and Op-site applied over the site. No oozing or signs and symptoms of hematoma noted. Arterial sheath flushed and connected to tranducer and pressure bag with heparinized saline. Post Procedure: Pulses reassessed and unchanged. PERRLA. Strong, equal hand correctional corporal bilaterally. No VTE prophylaxis required. Post-op diagnosis: Severe proximal and Mid LAD stenosis , status post PCI of proximal LAD. Unsucessful attempt of pci of LAD. Medication's Wasted: Heparin = 3000 unit. Total IV fluids: 347 mL. Complications: None. Estimated blood loss: 5mL-10mL. Responsiveness - Normal response to verbal stimuli; alert and oriented, PERRLA. Airway - Unaffected, no intervention required; spontaneous ventilation. Circulation: W/N/L, pulses unchanged. Nausea/Vomiting: No. Procedure completed. Patient transferred by bed to 1st floor. Vital chart was stopped. Access Site Site: Right Femoral artery Sheath Size: 6 Fr Hemostasis Method: Suture Hemostasis Success: Successful Procedure Medications Start: 9:20 AM Stop: 9:20 AM Medication: Versed Amount: 1 mg Route: I.V. Start: 9:20 AM Stop: 9:20 AM Medication: Fentanyl Amount: 25 mcg Route: I.V. Start: 9:43 AM Stop: 9:43 AM Medication: Heparin Amount: 5000 units Route: I.V. Start: 9:45 AM Stop: 9:45 AM Medication: Versed Amount: 1 mg Route: I.V. Start: 9:45 AM Stop: 9:45 AM Medication: Fentanyl Amount: 25 mcg Route: I.V. Start: 9:58 AM Stop: 9:58 AM Medication: 0.9% Saline Amount: 250 ml Route: I.V. bolus Start: 9:59 AM Stop: 9:59 AM Medication: Heparin Amount: 1000 units Route: I.V. Start: 10:17 AM Stop: 10:17 AM Medication: Versed Amount: 1 mg Route: I.V. Start: 10:17 AM Stop: 10:17 AM Medication: Fentanyl Amount: 25 mcg Route: I.V. Start: 10:40 AM Stop: 10:40 AM Medication: Versed Amount: 1 mg Route: I.V. Start: 10:41 AM Stop: 10:41 AM Medication: Fentanyl Amount: 25 mcg Route: I.V. Start: 10:49 AM Stop: 10:49 AM Medication: Plavix Amount: 300 mg Route: P.O. I, the attending physician, have reviewed and verified all procedure medications. Yes, all medications given per verbal order History/Risk Factors Hypertension: Yes Dyslipidemia: Yes Peripheral Arterial Disease (PAD): Yes Myocardial Infarction ([place]): No Obesity: No Renal Disease: No Prior Interventions PCI: Yes CABG: No Valve Surgery: No Date of PCI: 12/07/2022 Report Signatures Finalized by Bucky Prince MD on 02/07/2023 12:03 PM
[2023-02-01] MEDS: diphenhydrAMINE 50 mg Capsule PO (07:45)
--- NOTE | 2023-02-01 08:57 | W.PM.OPSFHP ---
Same Day Surgery H&P Indication for Procedure/HPI DATE OF PROCEDURE: February 01, 2023 CHIEF COMPLAINT/INDICATIONFOR SURGICAL PROCEDURE: Severe stenosis of mid LAD/ Staged PCI PREOP DIAGNOSIS: Severe stenosis of mid LAD/ Staged PCI PLANNED PROCEDURE: Operation Date: 02/01/23 08:30 Proposed Procedures p [facility] [id number],I25.10(Left) - Bucky Prince M.D Staged PCI of mid LAD 77 Yr old man with PMH of aortic valve replacement x 2 who underwent PCI of LCx 2 months back and is here for staged PCI of mid LAD. It is calcified. Plan for PCI with shockwave IVL and stenting. May require arthrectomy. Patient has exertional anginal symptoms and fatigue. Medications/Allergies* Home Medications Medication Instructions Recorded Confirmed Type aspirin 81 mg tablet,delayed 162 mg PO DAILY 05/28/19 02/01/23 History release (Adult Low Dose Aspirin) multivitamin 1 tab PO DAILY 05/28/19 02/01/23 History clopidogrel 75 mg tablet 75 mg PO DAILY 08/11/21 02/01/23 History amlodipine 10 mg tablet 10 mg PO DAILY 12/06/22 02/01/23 History fluticasone fur. 200 mcg-umeclid 1 ea inhalation DAILY 12/06/22 02/01/23 History 62.5 mcg-vilant 25 mcg inhalat.powder (Trelegy Ellipta) mirtazapine 15 mg tablet 7.5 mg PO BEDTIME 12/06/22 02/01/23 History nitroglycerin 0.4 mg sublingual 0.4 mg sublingual Q5M PRN Chest 12/06/22 02/01/23 History tablet (Nitrostat) Pain omega 6-jbg-yyv-fish oil 300 1 cap PO DAILY 12/06/22 02/01/23 History mg-1,000 mg capsule (Fish Oil) simvastatin 20 mg tablet 20 mg PO QPM 12/06/22 02/01/23 History tamsulosin 0.4 mg capsule 0.8 mg PO QPM 12/06/22 02/01/23 History Allergies/Adverse Reactions Allergy/AdvReac Type Severity Reaction Status Date / Time diltiazem Allergy Unknown unknown Verified 01/29/23 08:30 influenza virus vaccine Allergy Unknown unknown Verified 01/29/23 08:30 tval,purif- Current Medications: Generic Name Dose Route Start Last Admin Trade Name Jerry PRN Reason Stop Dose Admin Sodium Chloride 1,000 mls @ 50 mls/hr 02/01/23 07:30 02/01/23 08:21 Sodium Chloride 0.9% IV 02/02/23 03:29 Not Given .Q20H ONE Pertinent History/Comorbid Conditions* Medical History (Updated 12/07/22 @ 08:26 by Kavon Irwin MD) Enlarged prostate BPH loc w urin obs/LUTS Elevated PSA Carotid stenosis, bilateral Smoking 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 Hypertension Hyperlipidemia ASHD (arteriosclerotic heart disease) COPD (chronic obstructive pulmonary disease) Surgical History (Updated 05/04/22 @ 11:50 by Kavon Irwin MD) History of PTCA Status post cardiac pacemaker procedure Aortic valve replaced History of heart valve replacement Family History (Updated 06/10/20 @ 15:04 by Brea Huber RN) Father Mother, at age 80 Family history non-contributory Social History Smoking and tobacco/nicotine status: current every day tobacco/nicotine user Alcohol intake: never Substance/Drug Use: never Marital status: Current occupational status: retired Pertinent Exam Findings alert, oriented x 3, clear to auscultation bilaterally and regular rate & rhythm Conscious Sedation Assessment PATIENT ASSESSED PRIOR TO SEDATION, WITH NO CHANGE NOTED: Yes AIRWAY EVAL/ANESTHESIA PLAN: normal airway, ASA III, Local Anesthesia, Risks, benefits & alternatives of sedation and/or procedure discussed and Patient agrees to continue as planned ADDITIONAL INFORMATION: Moderate sedation Recommendations Surgery/Procedure today (Staged PCI of mid LAD ) Coding Level of Care Code Acute Code for Chg Fwd
[2023-02-01] MEDS: sodium chloride 0.9% 1,000 ML 100 ML IV (11:15)
--- NOTE | 2023-02-01 13:19 | PC.NURSE ---
received from cardiac photo lab technician via bed at 1110.report received.pt is alert and awake.denies pain at present.sr/sb on monitor.right femoral arterial line intact to pressurized system.right leg is warm to touch and with brisk capillary refill.palpable dp pulse noted.orirnted to pt instructed to notify staff for any bleeding,pain,sob,or for any concerns at all.pt verb understanding of instructions.
[2023-02-01 14:26] LABS: Partial Thromboplastin Time 63.2 SECONDS (23.9-36.7)
--- NOTE | 2023-02-01 15:38 | PC.NURSE ---
right femoral arterial sheath pulled at 1520.Manual pressure held x 20 min.vss through-out procedure.no hematoma noted.right leg remained warm to touch and with brisk capillar refill.palpable dp pulse noted.site dressed with 2x2 gauze and secured with biocclusive drsg.pt instructed in activity restrictions s/p femoral artery procedure...and instructed to notify staff for any bleeding,pain,sob or for any concerns at all.pt verb understanding of instructions
[2023-02-01] MEDS: hyDRALAzine 50 mg Tablet 100 MG PO (15:54)
[2023-02-01] MEDS: nicotine 21 mg Patch 1 PATCH TRANSDERMA (16:18)
[2023-02-01] MEDS: tamsulosin 0.4 mg Capsule 0.8 MG PO (17:38)
[2023-02-01] MEDS: atorvastatin 40 mg Tablet 20 MG PO (17:38)
[2023-02-01] MEDS: temazepam 15 mg Capsule PO (20:02)
[2023-02-01] MEDS: mirtazapine 15 mg Tablet 7.5 MG PO (20:02)
[2023-02-02 04:10] LABS: Basophils # 0.1 10^3/uL (0.0-0.1); Basophils % 1.1 %; Eosinophils # 0.2 10^3/uL (0.0-0.8); Eosinophils % 3.2 %; Hematocrit 30.4 % (37-53); Lymphocytes # 0.7 10^3/uL (0.8-4.8); Lymphocytes % 10.7 %; Mean Corpuscular HGB Conc 32.9 g/dL (30-55); Mean Corpuscular Hemoglobin 33.4 pg (27-33); Mean Corpuscular Volume 101.7 fl (82-101); Mean Platelet Volume 9.2 fL (7.4-10.4); Monocytes # 0.7 10^3/uL (0.2-0.9); Neutrophils # 4.63 10^3/uL (1.8-7.7); Neutrophils % 73.7 %; Nucleated Red Blood Cells % 0 %; Platelet Count 210 10^3/cmm (157-399); Red Blood Count 2.99 10^6/uL (3.85-5.65); White Blood Count 6.28 10^3/uL (3.29-11.43)
[2023-02-02 04:29] LABS: Anion Gap 13.3 (5-19); Blood Urea Nitrogen 16 mg/dL (8-23); Calcium 9.4 mg/dL (8.5-10.5); Carbon Dioxide 22 mmol/L (22-29); Chloride 101 mmol/L (98-107); Glucose 88 mg/dL (65-115); Osmolality Calculated 275 mOsm/kg (285-295); Potassium 4.3 mmol/L (3.5-5.1); Sodium 132 mmol/L (136-145)
[2023-02-02 07:30] VITALS: BP 116/54; PULSE 88; RESP 18; TEMP 36.6; O2SAT 96
--- NOTE | 2023-02-02 08:04 | P.DS_ITS ---
Discharge Providers Date of Admission: 02/01/23 11:04 Date of Discharge: February 02, 2023 Attending Provider at Admission: Bucky Prince MD Attending Provider at Discharge: Bucky Prince M.D Primary Care Provider: Annabel Medina MD Reason for Visit Reason for Visit: I25.10 Brief History: 77 Yr old man with PMH of aortic valve r eplacement x 2 who underwent PCI of LCx 2 months back and is here for staged PCI of mid LAD. It is calcified. Plan for PCI with shockwave IVL and stenting. May require arthrectomy. Patient has exertional anginal symptoms and fatigue. Hospital Course Hospital Course During the procedure, it was noted that proximal LAD is also heavily calcified and no equipment including IVUS will cross that and circumferential calcium was seen. We had to perform shockwave intravascular lithotripsy of the proximal LAD followed by placement of 1 stent. Mid LAD however was tortuous and balloon angioplasty was performed. Stent could not be crossed. Further attempts at mid LAD revascularization were aborted. Discussed with family and patient the 2 options of either pursuing medical therapy versus reattempt with arthrectomy. Patient prefers to continue with medical therapy at this time. If his anginal symptoms are uncontrolled with optimal medical therapy, can reconsider this strategy. Physical Exam Narrative: GENERAL: Patient is alert, awake and oriented x3. [] NECK: No jugular vein distension. [] HEENT: No cyanosis. No icterus. No pallor. [] HEART: Regular S1 and S2. No murmur, rub or gallop. [] LUNGS: Clear to auscultate bilaterally. [] CENTRAL NERVOUS SYSTEM: Grossly nonfocal. [] EXTREMITIES: Lower extremities with no edema Discharge Data Studies Completed and Pending Pending at discharge Category Date Time Status BUSINESS EXECUTIVE request for service Routine Exams 02/01/23 Taken Laboratory Results WBC 6.28 10^3/uL (3.29-11.43) 02/02/23 03:59 RBC 2.99 10^6/uL (3.85-5.65) L 02/02/23 03:59 Hgb 10.00 g/dL (11.27-16.99) L 02/02/23 03:59 Hct 30.4 % (37-53) L 02/02/23 03:59 MCV 101.7 fl (82-101) H 02/02/23 03:59 MCH 33.4 pg (27-33) H 02/02/23 03:59 MCHC 32.9 g/dL (30-55) 02/02/23 03:59 RDW 14.0 % (12.1-15.1) 02/02/23 03:59 Plt Count 210 10^3/cmm (157-399) 02/02/23 03:59 MPV 9.2 fL (7.4-10.4) 02/02/23 03:59 Neut % (Auto) 73.7 % 02/02/23 03:59 Lymph % (Auto) 10.7 % 02/02/23 03:59 [place] % (Auto) 11.0 % 02/02/23 03:59 Eos % (Auto) 3.2 % 02/02/23 03:59 Baso % (Auto) 1.1 % 02/02/23 03:59 Neut # (Auto) 4.63 10^3/uL (1.8-7.7) 02/02/23 03:59 Lymph # (Auto) 0.7 10^3/uL (0.8-4.8) L 02/02/23 03:59 [place] # (Auto) 0.7 10^3/uL (0.2-0.9) 02/02/23 03:59 Eos # (Auto) 0.2 10^3/uL (0.0-0.8) 02/02/23 03:59 Baso # (Auto) 0.1 10^3/uL (0.0-0.1) 02/02/23 03:59 Nucleated RBC % (auto) 0 % 02/02/23 03:59 Nucleated RBCs # 0.0 /100WBC 02/02/23 03:59 APTT 63.2 SECONDS (23.9-36.7) H 02/01/23 14:07 Sodium 132 mmol/L (136-145) L 02/02/23 03:59 Potassium 4.3 mmol/L (3.5-5.1) 02/02/23 03:59 Chloride 101 mmol/L (98-107) 02/02/23 03:59 Carbon Dioxide 22 mmol/L (22-29) 02/02/23 03:59 Anion Gap 13.3 (5-19) 02/02/23 03:59 BUN 16 mg/dL (8-23) 02/02/23 03:59 Creatinine 0.9 mg/dL (0.7-1.2) 02/02/23 03:59 GFR Calculation Not Reportable 02/02/23 03:59 Glucose 88 mg/dL (65-115) 02/02/23 03:59 Calculated Osmolality 275 mOsm/kg (285-295) L 02/02/23 03:59 Calcium 9.4 mg/dL (8.5-10.5) 02/02/23 03:59 Vitals Last Vital Signs Temp 97.9 F 02/02/23 07:30 Pulse 88 02/02/23 07:30 Resp 18 02/02/23 07:30 BP 116/54 02/02/23 07:30 Pulse Ox 96 02/02/23 07:30 O2 Del Method Room Air 02/02/23 07:30 Discharge Plan Discharge Patient Disposition: Home Condition: Stable Prescriptions: Continued multivitamin Tablet 1 tab PO DAILY aspirin [Adult Low Dose Aspirin] 81 mg tablet,delayed release (DR/EC) 162 mg PO DAILY clopidogrel 75 mg tablet 75 mg PO DAILY hydralazine 50 mg tablet 100 mg PO TID 30 Days Qty: 180 5RF lisinopril 40 mg tablet 40 mg PO DAILY Qty: 90 1RF mirtazapine 15 mg tablet 7.5 mg PO BEDTIME omega 6-hyx-pxa-fish oil [Fish Oil] 300-1,000 mg Capsule 1 cap PO DAILY Trelegy Ellipta 200-62.5-25 mcg blister with device 1 ea INHALATION DAILY tamsulosin 0.4 mg capsule 0.8 mg PO QPM Patient Comments: Patient takes 1 capsule in the afternoon at 3 pm and 1 cap in the evening at 6:30 PM per patient home regimen. amlodipine 10 mg tablet 10 mg PO DAILY simvastatin 20 mg tablet 20 mg PO QPM nitroglycerin [Nitrostat] 0.4 mg Tablet, Sublingual 0.4 mg SUBLINGUAL Q5M PRN (Reason: Chest Pain) Rx Instructions: do not exceed 3 doses per episode Discharge Orders: Discharge Order (Routine); Ordered 02/02/23 Ordered By: Bucky Prince Referrals: Bucky Prince M.D [Physician] - (Your Dr. Prince follow up appointment will be scheduled during your Judi Alvarado appointment. Thank you.) Judi Alvarado FNP [Nurse Practitioner] - 02/08/23 11:00 am Discharge Diet: Cardiac Discharge Activity: Increase activity as tolerated Patient Instructions: Heart Failure (DC), Coronary Angioplasty (DC), CHF Stoplight, Opioid Safety, Post Angiogram Home Care Instructions Discharge Attestations Time Spent in Discharge Care*: greater than 30 min Status at Discharge: Cognitive status at discharge: cognitively intact , Quality Metrics Clinical Quality Measures [ No reported AMI, CVA or VTE this stay] Coding Level of Care Code Acute Code for Chg Fwd
--- NOTE | 2023-02-02 08:49 | PC.CHAP ---
Pastoral Care Encounter/Spiritual Assessment Type of Contact [x] Declined first aid director visit [] Patient/Family/Request visit [] Outpatient visit [] Follow-up visit [] Physician referral [] Code/Alert [] Routine visit [] Staff referral [] Actively dying [] Patient sleeping [] Family support [] [] Out of room [] Palliative care [] [] Receiving care in room [] Pre-surgical visit [] Trauma [] Long length of stay [] ICU visit [] Other: Relational/Emotional Strength [] Patient feels connected with others/family/visitors/staff [] Distress [] Loneliness/isolation [] Abandonment Spirituality of Patient [] Person of Leora [] Attends Restoration of their Leora [] Believes in Prayer [] Reads Bible or Advent materials [] There are Spiritual issues to be addressed Cement Crusher Operator Interventions [] Prayer [] Active listening [] Non-anxious presence [] Spiritual/emotional support [] Crisis/trauma care [] Spiritual counseling [] Bereavement support [] Provided bereavement packet [] Provided Bible/devotional materials [] Provided toy/stuffed animal, coloring book to patient or family member [] Provided Communion [] Anointing/[place] [] Salvation [] Completed spiritual assessment [] Other: Impact on Illness or Injury [] Angry [] Fearful [] Anxious [] Often cries [] Exhaustion [] Unable to work [] Unable to attend temple [] Unable to walk/stand [] Unable to read [] Unable to drive [] Unable to eat/drink [] Unable to sleep [] Unable to be with family [] Patient intubated [] Other: Summary Time spent with patient
[2023-02-02 08:51] VITALS: BP 116/54; PULSE 88; RESP 18; TEMP 36.6; O2SAT 96
== END 2023-02-02 09:01 | disposition home or self-care (01) ==
LOC: CSU 11:04
PROVIDERS: Admitting Provider Internal Medicine; PCP Internal Medicine; Visit Provider Internal Medicine
DX: I25.10 Atherosclerotic heart disease of native coronary artery without angina pectoris (principal); Z79.82 Long term (current) use of aspirin; N40.1 Benign prostatic hyperplasia with lower urinary tract symptoms; N13.8 Other obstructive and reflux uropathy; E11.9 Type 2 diabetes mellitus without complications; I10 Essential (primary) hypertension; E78.5 Hyperlipidemia, unspecified; J44.9 Chronic obstructive pulmonary disease, unspecified
CPT/HCPCS: 36415; 80048; 85025; 85347; 85730; 92978; 93454; 96361; 96365; 99152; 99153; C1725; C1753; C1769; C1874; C1887; C1894; C9600; G0378; J1644; J2250; J3010; J3490; J7030; Q0163; Q9967

== ENCOUNTER → 2023-02-08 10:25 | Outpatient (BNVA) | payer OTHER, SELFPAY | PROVIDERS: PCP Internal Medicine; Visit Provider Nurse Practitioner Family | DX: I25.10 Atherosclerotic heart disease of native coronary artery without angina pectoris (principal); F17.210 Nicotine dependence, cigarettes, uncomplicated; I10 Essential (primary) hypertension | CPT/HCPCS: 36415; 80048; 99214 ==

== ENCOUNTER 2023-02-15 12:35 | Outpatient (CLI) | payer OTHER, SELFPAY ==
--- NOTE | 2023-02-15 12:40 | CT_ITS ---
WS: [id number] CT ABDOMEN AND PELVIS WITH CONTRAST HISTORY: ANEMIA AND WEIGHT LOSS TECHNIQUE: Imaging performed of the abdomen and pelvis with IV contrast. Single phase imaging of the abdomen. Coronal and sagittal reformats are submitted. All CT scans at [facility] use at [address] one of these dose optimization techniques: automated exposure control; mA and/or kV adjustment per patient size (includes targeted exams where dose is matched to clinical indication); or iterative re construction. IV CONTRAST: Omnipaque 350; 100 mL IV. Oral contrast: No DLP: 269.94 mGy.cm COMPARISON: 12/15/2019 Lower thorax: Mild elevation of the LEFT hemidiaphragm. No interval change 6 mm nodule in the lateral RIGHT lower lobe which is probably a granuloma. Mild cardiac enlargement. No hiatal hernia. Liver/biliary system: Normal size with no intrahepatic dilatation. Gallbladder: Normal. No gallstones or wall thickening. No pericholecystic fluid. Pancreas: Normal size pancreas and pancreatic duct. No adjacent inflammation. Spleen: Normal size spleen. No mass or infarct. Adrenal glands: Normal. Right kidney: Cortical cyst lower pole measures 1.0 cm. No solid mass or obstruction. Left kidney: Cortical cyst mid kidney 0.8 cm. No mass or obstruction. Aorta: Moderate atherosclerosis with no aneurysm. Very dense calcification throughout the aorta nicole nuous into the mesenteric arteries. There is a component of stenosis which is probably high-grade at the celiac axis and SMA. Lymphadenopathy: None. Free fluid: None. GI tract: Stomach is markedly distended with food products, fluid and air. This represents a change s samantha 12/15/2019. Towards the antrum and the proximal duodenal C-loop there is a change in caliber. In creased soft tissue in the region of the duodenal C-loop. This is at the site of the transition. Ther e is also some increased density within the antrum of the stomach which may be retained food products . Otherwise diffuse constipation. Abdominal wall: Unremarkable abdominal wall. No hernia. Pelvis: Prostate gland is enlarged. No free fluid or adenopathy in the pelvis. Bones: Unremarkable. IMPRESSION: 1. Significant distention of the stomach with a transition point towards the antrum and duodenal C-l oop. Endoscopy should be obtained to exclude obstructing neoplasm. No adjacent adenopathy or ascites. 2. Advanced atherosclerosis abdominal aorta. There is heavy calcification in the SMA and celiac axis with components of high-grade stenosis. 3. No ascites or adenopathy.
[2023-02-15] MEDS: iohexol 350 mg/mL 500 mL Btl (per mL) IV (13:15)
== END 2023-02-15 12:36 | disposition home or self-care (01) ==
LOC: RAD 12:35
PROVIDERS: PCP Internal Medicine; Visit Provider Family Medicine
DX: D64.9 Anemia, unspecified (principal); R63.4 Abnormal weight loss; K31.89 Other diseases of stomach and duodenum; K55.1 Chronic vascular disorders of intestine; I70.0 Atherosclerosis of aorta
CPT/HCPCS: 74177; Q9967

== ENCOUNTER → 2023-03-13 09:00 | Outpatient (BNVA) | payer OTHER, SELFPAY | PROVIDERS: PCP Internal Medicine; Referring Provider Internal Medicine; Visit Provider Surgery | DX: K21.9 Gastro-esophageal reflux disease without esophagitis (principal); K31.89 Other diseases of stomach and duodenum | CPT/HCPCS: 99205 ==

== ENCOUNTER 2023-04-19 13:35 | Inpatient (IN) | payer OTHER, SELFPAY ==
[2023-04-19] VITALS (9 sets, daily range): BP systolic 81–106; BP diastolic 46–63; PULSE 78–104; RESP 16–32; TEMP 36.3–37.2; O2SAT 89–98; BMI 21.2
--- NOTE | 2023-04-19 17:05 | XRR_ITS ---
PROCEDURE INFORMATION: Exam: XR Chest Exam date and time: 04/19/2023 5:26 PM Age: 77 years old Clinical indication: Cough and dyspnea; Additional info: Dyspnea/cough TECHNIQUE: Imaging protocol: Radiologic exam of the chest. Views: 1 view. COMPARISON: CR XR chest 1V portable [id number] 12/06/2022 1:41 PM FINDINGS: Tubes, catheters and devices: Left-sided cardiac pacemaker device redemonstrated. Lungs: Irregular opacities in the lung bases. Pleural spaces: Unremarkable. No pleural effusion. No pneumothorax. Heart/Mediastinum: See Bones/joints finding. Bones/joints: Prior median sternotomy aortic valve replacement. Other findings: Small bilateral effusions. XR/XR chest 1V portable [id number] IMPRESSION: Irregular opacities in the lung bases.
--- NOTE | 2023-04-19 17:05 | ED_ITS ---
HPI - SOB/Dyspnea 2 General: Chief Complaint: Shortness of Breath/Dyspnea Stated Complaint: dr holcomb sob, chest and back pains Time Seen by Provider: 04/19/23 17:04 Source: patient Mode of arrival: ambulatory History of Present Illness: HPI Narrative: 69-year-old male presents emergency room planing shortness of breath intermittent chest pain nausea vomiting patient is a smoker. Shortness of breath worse with exertion. He also has some orthopnea and increased lower extremity swelling. Patient has a history of coronary disease previous that his stent placed in 2022. He is also complaining of 20 pound weight loss over the last month. He has been getting progressively weaker. Patient had a CT done in January that showed a gastric mass. He has not had this biopsied to this point. MD elicited complaint: shortness of breath Pertinent past history: COPD and congestive heart failure Exacerbating factors: coughing Relieving factors: oxygen and rest Known history of: COPD and congestive heart failure Associated symptoms: Deny abdominal pain, chest pain or fever(s) Review of Systems 2 Const: Denies: fever(s) or chills Card: Denies: chest pain Resp: Denies: dyspnea GI: Denies: abdominal pain : Denies: dysuria, urinary frequency or urinary urgency Musc: Denies: neck pain or back pain Skin/Breast: Denies: rash PFSH ED 2 PFSH: Medical History Enlarged prostate BPH loc w urin obs/LUTS Elevated PSA Carotid stenosis, bilateral Smoking Diabetes 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 Mother , at age 80 No problems noted. Other Family history non-contributory Social History Smoking and tobacco/nicotine status: current every day tobacco/nicotine user Alcohol intake: never Substance/Drug Use: never Marital status: Current occupational status: retired Physical Exam 2 Const: GENERAL APPEARANCE: cooperative ORIENTATION/CONSCIOUSNESS: Yes awake, Yes oriented to person, Yes oriented to place and Yes oriented to time HENMT: COMMON NORMALS: normocephalic, atraumatic and hearing grossly normal bilaterally HEAD & SCALP: normocephalic and atraumatic Resp: COMMON NORMALS: normal respiratory effort, No retractions, No use of accessory muscles and clear to auscultation bilaterally AUSCULTATION: clear to auscultation bilaterally Cardio: COMMON NORMALS: regular rate, regular rhythm and No murmurs present (Cardio) RATE: regular rate RHYTHM: regular rhythm GI: COMMON NORMALS: Soft to palpation and No hepatosplenomegaly present A USCULTATION: Yes normoactive bowel sounds PALPATION: Yes Soft to palpation, No Tenderness to palpation present (GI), No Guarding due to palpation present (GI) and Yes No hepatosplenomegaly present Extremity: COMMON NORMALS: normal to inspection, capillary refill normal, no clubbing, cyanosis or edema, no calf tenderness and no pedal edema Neuro: SENSORIUM/ORIENTATION: Yes oriented to person, Yes oriented to place and Yes oriented to time Skin: COMMON NORMALS: no rashes or lesions noted GENERAL SKIN EXAM: no rashes or lesions noted Course 2 Vital Signs: Vital signs: Vital Signs Temperature 97.8 F 04/21/23 00:11 Pulse Rate 105 H 04/21/23 00:11 Respiratory Rate 20 H 04/21/23 00:11 Blood Pressure 90/55 04/21/23 00:11 Pulse Oximetry 91 04/21/23 00:11 Oxygen Delivery Me thod High Flow Nasal C annula 04/21/23 00:00 Oxygen Flow Rate 9 04/21/23 00:00 MDM - SOB/Dyspnea Medical Decision Making Admitted for congestive heart failure. CT to reevaluate gastric mass read as no identifiable gastric mass there was concerns about pleural effusions and arteriosclerotic disease of abdominal aorta and iliac including the origins of the SMA and the renal arteries. Given patient's 20 pound weight loss [address] CT was ordered. His creatinine on presentation is 1.4. He was also given Lasix in the ER. Previous angiography reports read patient proximal LAD lesion which was treated with a distal LAD lesion which is difficult to treat. His initial troponins are significantly elevated 608 however subsequent troponins decreased suspect this is due to heart strain from his heart failure and some demand ischemia. Admit for congestive heart failure. Consult general surgery given the discrepancy in the CTs also consulted with general surgery they are planning on seeing the patient. Medical Records I reviewed the patient's medical records. Lab Data I reviewed the patient's lab results. 04/20/23 16:23 04/20/23 03:05 Labs/Radiology: Radiology Impressions Chest X-Ray 04/19/23 17:05 IMPRESSION: Irregular opacities in the lung bases. Abdomen/Pelvis CT 04/19/23 17:29 IMPRESSION: 1. Large right and small left pleural effusions. Patchy opacities in the left lung base which are nonspecific. 2. Severe atherosclerotic disease of the abdominal aorta and iliac arteries including the origins of the SMA celiac trunk and renal arteries. 3. No gastric mass Laboratory Results WBC 6.67 10^3/uL (3.29-11.43) 04/19/23 17:21 RBC 2.99 10^6/uL (3.85-5.65) L 04/19/23 17:21 Hgb 10.00 g/dL (11.27-16.99) L 04/19/23 17:21 Hct 29.5 % (37-53) L 04/19/23 17:21 MCV 98.7 fl (82-101) 04/19/23 17:21 MCH 33.4 pg (27-33) H 04/19/23 17:21 MCHC 33.9 g/dL (30-55) 04/19/23 17:21 RDW 13.2 % (12.1-15.1) 04/19/23 17:21 Plt Count 212 10^3/cmm (157-399) 04/19/23 17:21 MPV 10.2 fL (7.4-10.4) 04/19/23 17:21 Neut % (Auto) 79.1 % 04/19/23 17:21 Lymph % (Auto) 9.9 % 04/19/23 17:21 [place] % (Auto) 9.1 % 04/19/23 17:21 Eos % (Auto) 1.2 % 04/19/23 17:21 Baso % (Auto) 0.6 % 04/19/23 17:21 Neut # (Auto) 5.27 10^3/uL (1.8-7.7) 04/19/23 17:21 Lymph # (Auto) 0.7 10^3/uL (0.8-4.8) L 04/19/23 17:21 [place] # (Auto) 0.6 10^3/uL (0.2-0.9) 04/19/23 17:21 Eos # (Auto) 0.1 10^3/uL (0.0-0.8) 04/19/23 17:21 Baso # (Auto) 0.0 10^3/uL (0.0-0.1) 04/19/23 17:21 Nucleated RBC % (auto) 0 % 04/19/23 17:21 Nucleated RBCs # 0.0 /100WBC 04/19/23 17:21 Sodium 131 mmol/L (136-145) L 04/19/23 17:21 Potassium 4.6 mmol/L (3.5-5.1) 04/19/23 17:21 Chloride 98 mmol/L (98-107) 04/19/23 17:21 Carbon Dioxide 21 mmol/L (22-29) L 04/19/23 17:21 Anion Gap 16.6 (5-19) 04/19/23 17:21 BUN 57 mg/dL (8-23) H 04/19/23 17:21 Creatinine 1.4 mg/dL (0.7-1.2) H 04/19/23 17:21 GFR Calculation Not Reportable 04/19/23 17:21 Glucose 117 mg/dL (65-115) H 04/19/23 17:21 Calculated Osmolality 289 mOsm/kg (285-295) 04/19/23 17:21 Calcium 8.9 mg/dL (8.5-10.5) 04/19/23 17:21 Total Bilirubin 0.5 mg/dL (0.15-1.2) 04/19/23 17:21 AST 26 U/L (0-40) 04/19/23 17:21 ALT 30 U/L (0-41) 04/19/23 17:21 Alkaline Phosphatase 121 U/L (40-130) 04/19/23 17:21 Troponin T Baseline 608 ng/L (0-15) H* 04/19/23 17:21 NT-Pro-B Natriuret Pep 15141 pg/mL (0-450) H 04/19/23 17:21 Total Protein 6.4 g/dL (6.6-8.7) L 04/19/23 17:21 Albumin 3.8 g/dL (3.5-5.2) 04/19/23 17:21 Globulin 2.6 g/dL (1.3-4.6) 04/19/23 17:21 Vitamin B12 1698 pg/mL (232-1245) H 04/19/23 17:21 All radiology interpretation(s) finalized by discharge Discharge Plan Discharge Patient Disposition: Admitted As Inpatient Admit Provider: Yusuf Thomas Clinical Impression: Acute decompensated heart failure, ASHD (arteriosclerotic heart disease), Diabetes, Atherosclerotic heart disease [place] coronary artery w/angina pectoris, Elevated troponin Condition: Stable Coding Level of Care Code ED Owner Spa Director for Lester Mora
--- NOTE | 2023-04-19 17:05 | ECG_ITS ---
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 Measurements Intervals [place] Rate: 86 P: 0 LA: 0 QRS: 60 QRSD: 170 T: 241 QT: 415 QTc: 497 Interpretive Statements UNCERTAIN IRREGULAR RHYTHM LEFT BUNDLE BRANCH BLOCK [120+ ms QRS DURATION, 80+ ms Q/S IN V1/V2, 85+ ms R IN I/aVL/V5/V6] Compared to ECG 12/08/2022 12:57:05 Sinus rhythm no longer present First degree AV block no longer present Left-axis deviation no longer present Electronically Signed On 04-19-2023 20:08:05 DIRECTOR CHILD by Kavon Irwin M.D. [id number]
--- NOTE | 2023-04-19 17:29 | CTR_ITS ---
PROCEDURE INFORMATION: Exam: CT Abdomen And Pelvis With Contrast Exam date and time: 04/19/2023 6:14 PM Age: 77 years old Clinical indication: Other: Mass, known; Prior surgery; Surgery date: 6+ months; Surgery type: Hernia; Additional info: Gastric mas TECHNIQUE: Imaging protocol: Computed tomography of the abdomen and pelvis with contrast. Radiation optimization: All CT scans at this facility use at least one of these dose optimization techniques: automated exposure control; mA and/or kV adjustment per patient size (includes targeted exams where dose is matched to clinical indication); or iterative reconstruction. Contrast material: OMNI 350; Contrast volume: 100 ml; Contrast route: INTRAVENOUS (IV); COMPARISON: CT abdomen pelvis w con* [id number] 02/15/2023 12:59 PM RADIATION DOSE METRICS: Total DLP (mGy-cm): 326 FINDINGS: Pleural spaces: Large right and small left pleural effusions. Patchy opacities in the left lung base which are nonspecific. Liver: Normal. No mass. Gallbladder and bile ducts: Normal. No calcified stones. No ductal dilation. Pancreas: Normal. No ductal dilation. Spleen: Normal. No splenomegaly. Adrenal glands: Normal. No mass. Kidneys and ureters: Normal. No hydronephrosis. Stomach and bowel: No gastric mass identified. Appendix: The appendix is not visualized but there are no secondary signs of acute appendicitis. Intraperitoneal space: Unremarkable. No free air. No significant fluid collection. Vasculature: Severe atherosclerotic disease of the abdominal aorta and iliac arteries including the origins of the SMA celiac trunk and renal arteries. Lymph nodes: Unremarkable. No enlarged lymph nodes. Urinary bladder: Unremarkable as visualized. Reproductive: Unremarkable as visualized. Bones/joints: Severe degenerative disc disease at L2-L3 with associated endplate changes. Soft tissues: Unremarkable. CT/CT abdomen pelvis w con* [id number] IMPRESSION: 1. Large right and small left pleural effusions. Patchy opacities in the left lung base which are nonspecific. 2. Severe atherosclerotic disease of the abdominal aorta and iliac arteries including the origins of the SMA celiac trunk and renal arteries. 3. No gastric mass
[2023-04-19 17:35] LABS: Basophils % 0.6 %; Eosinophils # 0.1 10^3/uL (0.0-0.8); Eosinophils % 1.2 %; Hematocrit 29.5 % (37-53); Lymphocytes # 0.7 10^3/uL (0.8-4.8); Lymphocytes % 9.9 %; Mean Corpuscular HGB Conc 33.9 g/dL (30-55); Mean Corpuscular Hemoglobin 33.4 pg (27-33); Mean Corpuscular Volume 98.7 fl (82-101); Mean Platelet Volume 10.2 fL (7.4-10.4); Monocytes # 0.6 10^3/uL (0.2-0.9); Monocytes % 9.1 %; Neutrophils # 5.27 10^3/uL (1.8-7.7); Neutrophils % 79.1 %; Nucleated Red Blood Cells % 0 %; Platelet Count 212 10^3/cmm (157-399); Red Blood Count 2.99 10^6/uL (3.85-5.65); Red Cell Distribution Width 13.2 % (12.1-15.1); White Blood Count 6.67 10^3/uL (3.29-11.43)
[2023-04-19 17:58] LABS: Troponin(5th) Baseline 608 ng/L (0-15)
[2023-04-19 17:59] LABS: Alanine Aminotransferase 30 U/L (0-41); Albumin Level 3.8 g/dL (3.5-5.2); Alkaline Phosphatase 121 U/L (40-130); Anion Gap 16.6 (5-19); Aspartate Amino Transferase 26 U/L (0-40); Blood Urea Nitrogen 57 mg/dL (8-23); Calcium 8.9 mg/dL (8.5-10.5); Carbon Dioxide 21 mmol/L (22-29); Chloride 98 mmol/L (98-107); Creatinine Clr Calc Pharmacy 35.6857; Globulin 2.6 g/dL (1.3-4.6); Glucose 117 mg/dL (65-115); NT Pro B Type Natriuretic Pept 19650 pg/mL (0-450); Osmolality Calculated 289 mOsm/kg (285-295); Potassium 4.6 mmol/L (3.5-5.1); Sodium 131 mmol/L (136-145); Total Bilirubin 0.5 mg/dL (0.15-1.2); Total Protein 6.4 g/dL (6.6-8.7)
[2023-04-19] MEDS: iohexol 350 mg/mL 500 mL Btl (per mL) IV (18:43)
--- NOTE | 2023-04-19 18:43 | P.HP_ITS ---
Providers/Chief Complaint 2 Admitting Physician: Yusuf Thomas MD Primary Care Provider: Annabel Medina MD Chief Complaint: dr aicha, sob, chest and back pains History of Present Illness Luisa Walters is a 77 year old male with history of established coronary disease, recent stent placed in January 2023, active smoker smokes 1 pack/day, has been compliant presented with shortness of breath on exertion, he has not experienced any chest pain, fever, diarrhea. Patient is stating that he he is experiencing early satiety, his appetite is poor he has lost weight, for worsening of shortness of breath he increased his Lasix to 80 mg recently. In the ER CT abdomen pelvis did not show gastric mass which was the concern on previous CT abdomen pelvis, will confirm with radiology in the morning Patient ruled in for non-STEMI troponins around 600 with BNP 1900, clinically looks fluid overloaded currently no active chest pain or shortness of breath Family is at the bedside His hemoglobin has remained stable, patient is full code goals of care discussed with the patient and the family at bedside He does have GALINDO with creatinine 1.4 please note he also got contrast today Review of Systems 2 Const: Reports: chills, fatigue and malaise Eyes: Denies: change in vision ENMT: Denies: throat pain Card: Reports: swelling of feet/ankles Resp: Reports: dyspnea GI: Denies: abdominal pain : Denies: flank pain Musc: Denies: neck pain Skin/Breast: Denies: rash Neuro: Denies: headache(s) Psych: Reports: anxiety Medications/Allergies Home Medications Medication Instructions Recorded Confirmed Last Taken Type aspirin 81 mg tablet,delayed 162 mg PO DAILY 05/28/19 03/13/23 02/01/23 06:30 History release (Adult Low Dose Aspirin) multivitamin 1 tab PO DAILY 05/28/19 03/13/23 01/29/23 History clopidogrel 75 mg tablet 75 mg PO DAILY 08/11/21 03/13/23 02/01/23 06:30 History hydralazine 50 mg tablet 100 mg (2 x 50 mg) PO TID 30 days 07/12/22 03/13/23 02/01/23 06:30 Rx #180 tabs amlodipine 10 mg tablet 10 mg PO DAILY 12/06/22 03/13/23 02/01/23 06:30 History fluticasone fur. 200 mcg-umeclid 1 ea inhalation DAILY 12/06/22 03/13/23 02/01/23 06:30 History 62.5 mcg-vilant 25 mcg inhalat.powder (Trelegy Ellipta) mirtazapine 15 mg tablet 7.5 mg PO BEDTIME 12/06/22 03/13/23 01/31/23 22:00 History nitroglycerin 0.4 mg sublingual 0.4 mg sublingual Q5M PRN Chest 12/06/22 03/13/23 01/29/23 History tablet (Nitrostat) Pain omega 0-jlq-qbp-fish oil 300 1 cap PO DAILY 12/06/22 03/13/23 01/31/23 12:00 History mg-1,000 mg capsule (Fish Oil) tamsulosin 0.4 mg capsule 0.8 mg PO QPM 12/06/22 03/13/23 02/01/23 06:30 History lisinopril 40 mg tablet See Rx Instructions .Route 02/05/23 03/13/23 Unknown Rx .COMPLEX #90 tabs simvastatin 20 mg tablet 20 mg PO QPM #90 tabs 02/07/23 03/13/23 Unknown Rx Allergies Allergy/AdvReac Type Severity Reaction Status Date / Time diltiazem Allergy Unknown unknown Verified 03/13/23 09:02 influenza virus vaccine Allergy Unknown unknown Verified 03/13/23 09:02 tval,purif- PFSH Acute 2 PFSH: Medical History Enlarged prostate BPH loc w urin obs/LUTS Elevated PSA Carotid stenosis, bilateral Smoking Diabetes 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 Mother , at age 80 No problems noted. Other Family history non-contributory Social History Smoking and tobacco/nicotine status: current every day tobacco/nicotine user Alcohol intake: never Substance/Drug Use: never Marital status: Current occupational status: retired Vitals/I&O/Wt Last Vital Signs Temp 97.3 F L 04/19/23 13:39 Pulse 83 04/19/23 18:33 Resp 19 H 04/19/23 18:33 BP 106/63 04/19/23 18:33 Pulse Ox 94 04/19/23 18:33 O2 Del Method Room Air 04/19/23 17:38 Weight last 48 hrs Weight 56.245 kg Physical Exam 2 Narrative: Patient is awake and alert Currently on room air GCS 15 Blood pressure 106/63 Afebrile Pleasant cooperative Acute sinus fluid overload 2+ edema of lower extremities Abdomen soft Hepatomegaly No splenomegaly No abdominal tenderness Data 04/19/23 17:21 04/19/23 17:21 A&P Assessment and plan (1) Hypertension: Qualifiers: Hypertension type: essential hypertension Qualified Code(s): I10 - Essential (primary) hypertension (2) Acute decompensated heart failure: (3) Aortic valve replaced: (4) Anginal equivalent: (5) Carotid stenosis, bilateral: (6) Peripheral arterial occlusive disease: (7) Exertional dyspnea: (8) Diabetes: Qualifiers: Diabetes mellitus type: type 2 Diabetes mellitus terminal operations manager insulin use: without senior care use Diabetes mellitus complication status: with hyperglycemia Qualified Code(s): E11.65 - Type 2 diabetes mellitus with hyperglycemia (9) Hyponatremia: (10) Gastric mass: (11) Acute hyponatremia: (12) Leg pain: Qualifiers: Laterality: left Qualified Code(s): M79.605 - Pain in left leg (13) SOB (shortness of breath): (14) Smoking: (15) Non-STEMI (non-ST elevated myocardial infarction): Plan Dyspnea on exertion Acute CHF exacerbation: Preserve ejection fraction Continue IV Lasix Pleural effusion Will request thoracentesis Non-STEMI Start heparin drip Considering indication for endoscopy he might be needing a biopsy, hold off on aspirin Plavix for now Patient is an active smoker with vascular disease CT abdomen pelvis requested to evaluate obstruction/gastric mass No active nausea or vomiting Patient has been eating very poorly at home has lost significant amount of weight GALINDO Cardiorenal, active sign of fluid overload Hold lisinopril Hypertension: At this point patient is hypotensive hold off on adding more antihypertensive regimen I would only add low-dose amlodipine or metoprolol avoid lisinopril Full code N.p.o. after midnight Dr. Irwin and Dr. Molina consulted and notified Spoke with the ER physician, Dr. Irwin and Dr. Molina, for now we will hold off on endoscopy he probably will need another angiogram considering significant mild troponin and active smoking, once he is cleared medically then Dr. Molina will do the biopsy and endoscopy Both general surgeon and cardiology is in agreement Patient does not want to quit smoking, he will need nicotine patch 21 mg Attestations 2 Medical Necessity Statement*: More than 2 midnights anticipated Diagnoses Essential hypertension I10 Hypertension type: essential hypertension Acute decompensated heart failure I50.9 Aortic valve replaced Z95.2 Anginal equivalent I20.89 Carotid stenosis, bilateral I65.23 Peripheral arterial occlusive disease I77.9 Exertional dyspnea R06.09 Type 2 diabetes mellitus with hyperglycemia, without long-term current use of insulin E11.65 Diabetes mellitus type: type 2 Diabetes mellitus terminal operations manager insulin use: without terminal operations manager use Diabetes mellitus complication status: with hyperglycemia Hyponatremia E87.1 Gastric mass K31.89 Acute hyponatremia E87.1 Pain of left lower extremity M79.605 Laterality: left SOB (shortness of breath) R06.02 Smoking F17.200 Non-STEMI (non-ST elevated myocardial infarction) I21.4
--- NOTE | 2023-04-19 19:05 | ECG_ITS ---
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 Measurements Intervals [place] Rate: 100 P: 79 ND: 168 QRS: 63 QRSD: 177 T: 258 QT: 400 QTc: 517 Interpretive Statements SINUS TACHYCARDIA POSSIBLE LEFT ATRIAL ENLARGEMENT [-0.1mV P-WAVE IN V1/V2] LEFT BUNDLE BRANCH BLOCK [120+ ms QRS DURATION, 80+ ms Q/S IN V1/V2, 85+ ms R IN I/aVL/V5/V6] Compared to ECG 04/19/2023 17:12:34 No significant changes Electronically Signed On 04-19-2023 20:25:57 PLANT TECHNICAL SPECIALIST by Kavon Irwin M.D. [email or web address] ([id number]
--- NOTE | 2023-04-19 19:09 | USCV_ITS ---
Luisa Walters Age: 77 Gender: M : 1945 Exam Date: 04/19/2023 19:22 Ordering Phys: Yusuf Thomas MD Technologist: TRICIA Exam Location: [facility] [place] Indication: order says CHF . History of bovine AVR 2007, again porcine AVR 2015. Pacer 2019. BP: 106 / 63 HR: 96 Rhythm: Paced with Atrial fibrillation Technical Quality: Adequate MEASUREMENTS (Male / Female) Normal Values 2D ECHO LV Diastolic Diameter PLAX 5.4 cm 4.2 - 5.9 / 3.9 - 5.3 cm IVS Diastolic Thickness 1.3 cm 0.6 - 1.0 / 0.6 - 0.9 cm IVS Systolic Thickness 1.8 cm LVPW Diastolic Thickness 0.9 cm 0.6 - 1.0 / 0.6 - 0.9 cm LVPW Systolic Thickness 1.0 cm LVOT Diameter 1.8 cm LV Ejection Fraction 2D Teich 37.1 % LV Ejection Fraction MOD 2C 40.7 % LV Ejection Fraction 2C AL 0.0 % LA Diameter 5.4 cm IVC Diameter 2.3 cm M-MODE LA Ao Ratio MM 1.4 AV Cusp Separation MM 0.9 cm DOPPLER AV Peak Velocity 261.0 cm/s LVOT Peak Velocity 52.0 cm/s AV Area Cont Eq vti 0.6 cm squared AV Area Cont Eq pk 0.5 cm squared MV Peak Velocity 144.0 cm/s MV Area PHT 5.1 cm squared Mitral E to A Ratio 0.0 TV Peak Velocity 325.0 cm/s TR Peak Velocity 356.0 cm/s TR Peak Gradient 50.7 mmHg TV Peak E Velocity 51.0 cm/s Right Atrial Pressure 10.0 mmHg Pulmonary Artery Systolic Pressu 60.7 mmHg PV Peak Velocity 97.0 cm/s FINDINGS Left Ventricle Left ventricle is mildly dilated. LV systolic function is severely reduced with EF of 25 to 30%. Severe global hypokinesis seen. Right Ventricle Pacemaker wire seen Right Atrium Normal in size Left Atrium Normal in size Mitral Valve Thickened mitral valve. Moderate mitral regurgitation Aortic Valve Bioprosthetic aortic valve appears thickened ad calcified. .DVI is 0.22 and is abnormal. Mean gradient across aortic valve is 14 mmHg. Tricuspid Valve Mild tricuspid regurgitation. RVSP is 60 mmHg. This is consistent with severe pulmonary hypertension. Pulmonic Valve Not well visualized Pericardium Pleural effusion is seen Aorta Not well visualized IVC Appears dilated CONCLUSIONS Left ventricle is mildly dilated. LV systolic function is severely reduced with EF of 25 to 30%. Moderate mitral regurgitation. Bioprosthetic aortic valve appears thickened and calcified. DVI 0.22 and is abnormal. Severe pulmonary hypertension Pleural effusion noted Compared to prior echocardiogram from 2022, LV systolic function has decreased significantly. DVI of aortic valve is also abnormal now. Pleural effusion seen now and severe pulmonary hypertension is also seen. Bucky Prince MD (Electronically Signed) Final Date: 20 April 2023 07:51 S
[2023-04-19 19:41] LABS: Troponin 5 2HR Delta -55.4 ABS# (0-10)
[2023-04-19 19:43] LABS: Troponin 5 2HR 552.6 ng/L (0-15)
[2023-04-19 20:31] LABS: Vitamin B12 1698 pg/mL (232-1245)
[2023-04-19] MEDS: morphine IR 15 mg Tablet PO (20:45)
[2023-04-19] MEDS: zolpidem 5 mg Tablet PO (20:45)
[2023-04-19] MEDS: nicotine 21 mg Patch 1 PATCH TRANSDERMA (20:46)
[2023-04-19] MEDS: FUROsemide 10 mg/mL SDV 10mL 40 MG IVP (20:48)
[2023-04-19] MEDS: heparin 5,000 unit/mL INJ 1 mL IV (20:59)
[2023-04-19] MEDS: heparin drip 25,000 UNIT/500 ML PREMIX 16 UNIT IV (21:03)
--- NOTE | 2023-04-19 23:05 | ECG_ITS ---
[facility] Test Date: 2023-04-19 Pat Name: Luisa Walters Department: Room: 111 Gender: Male Clergy Member: : 1945 Requested By: Jaxon Mosqueda Order Number: [id number] Freddy MD: Bucky Prince M.D. Measurements Intervals [place] Rate: 82 P: 34 OK: 180 QRS: 34 QRSD: 177 T: 193 QT: 430 QTc: 505 Interpretive Statements SINUS RHYTHM WITH OCCASIONAL SUPRAVENTRICULAR PREMATURE COMPLEXES POSSIBLE LEFT ATRIAL ENLARGEMENT [-0.1mV P-WAVE IN V1/V2] LEFT BUNDLE BRANCH BLOCK [120+ ms QRS DURATION, 80+ ms Q/S IN V1/V2, 85+ ms R IN I/aVL/V5/V6] Compared to ECG 04/19/2023 19:21:13 Sinus tachycardia no longer present Electronically Signed On 04-20-2023 10:48:17 OCCUPATIONAL THERAPY TECHNICIAN by Bucky Prince M.D. [id number]
[2023-04-19 23:14] LABS: Troponin 5 6HR Delta -23.4 ng/L (0-12)
[2023-04-19 23:15] LABS: Troponin 5 6HR 584.6 ng/L (0-15)
[2023-04-20] VITALS (72 sets, daily range): BP systolic 70–132; BP diastolic 36–80; PULSE 78–120; RESP 12–29; TEMP 36.6–37; O2SAT 87–97; BMI 20.5
--- NOTE | 2023-04-20 01:19 | PC.NURSE ---
Addendum entered by Elysia Shepard RN 04/20/23 02:24: Patient denies any symptoms at this time. Will monitor BP and advise MD accordingly. Original Note: Informed Dr Pereira of low BP. MD placed order for onetime dose of albumin and to hold am dose of amlodipine.
[2023-04-20] MEDS: morphine IR 15 mg Tablet PO ×2 (02:09→19:29)
[2023-04-20] MEDS: albumin 12.5 GM/50 ML VIAL IV (02:17)
--- NOTE | 2023-04-20 03:11 | PC.NURSE ---
Informed Dr Pereira of decreased blood pressures post albumin administration. Manual BP obtained 70/40. MD request to transfer to ICU to begin pressers. Discussed with patient need for this medication and the move. Patient verbalized complete understanding. Report call to TIFFANY Craig.
[2023-04-20] MEDS: norepinephrine 4 MG/250 ML BAG 7.5 MG IV (03:41)
[2023-04-20 03:53] LABS: Basophils % 0.3 %; Eosinophils # 0.2 10^3/uL (0.0-0.8); Eosinophils % 2.7 %; Hematocrit 24.5 % (37-53); Lymphocytes # 0.7 10^3/uL (0.8-4.8); Lymphocytes % 10.4 %; Mean Corpuscular HGB Conc 33.5 g/dL (30-55); Mean Corpuscular Hemoglobin 32.7 pg (27-33); Mean Corpuscular Volume 97.6 fl (82-101); Mean Platelet Volume 10.8 fL (7.4-10.4); Monocytes # 0.7 10^3/uL (0.2-0.9); Monocytes % 10.5 %; Neutrophils # 4.96 10^3/uL (1.8-7.7); Neutrophils % 75.6 %; Nucleated Red Blood Cells % 0 %; Platelet Count 198 10^3/cmm (157-399); Red Blood Count 2.51 10^6/uL (3.85-5.65); Red Cell Distribution Width 13.2 % (12.1-15.1); White Blood Count 6.56 10^3/uL (3.29-11.43)
[2023-04-20 04:18] LABS: Anion Gap 17.3 (5-19); Blood Urea Nitrogen 60 mg/dL (8-23); C Reactive Protein 40.5 mg/L (0.0-4.9); Calcium 8.6 mg/dL (8.5-10.5); Carbon Dioxide 22 mmol/L (22-29); Chloride 100 mmol/L (98-107); Creatinine Clr Calc Pharmacy 33.6504; Glucose 95 mg/dL (65-115); Magnesium 2.5 mg/dL (1.7-2.3); Osmolality Calculated 297 mOsm/kg (285-295); Potassium 4.3 mmol/L (3.5-5.1); Sodium 135 mmol/L (136-145)
[2023-04-20 04:21] LABS: Lactate Dehydrogenase 259 U/L (135-225)
--- NOTE | 2023-04-20 06:26 | US_ITS ---
WS: [id number] Ultrasound bilateral chest. HISTORY: Small RIGHT pleural effusion. There is a small RIGHT pleural effusion. No effusion on the LEFT. Unable to proceed with thoracentesi s. Patient has been on Plavix and aspirin as an outpatient and this was not discontinued. IMPRESSION: Small RIGHT pleural effusion. No thoracentesis performed today as the patient has been anticoagulated .
[2023-04-20] MEDS: ipratropium-albuterol 3 mL Neb INHALATION (07:29)
[2023-04-20 08:03] LABS: INR 1.19 (0.8-1.2)
--- NOTE | 2023-04-20 08:28 | PM.CONSULT ---
Providers/Reason For Consult Consulting Physician/Specialty*: TATIANNA Irwin MD/cardiology Reason for Consult*: Patient with heart failure/atherosclerotic heart disease/gastric mass Requesting Physician: Dr. Thomas Attending Physician: Yusuf Thomas MD Primary Care Provider: Annabel Medina MD History of Present Illness History of Present Illness Luisa Walters is a 77 year old male with multiple medical problems, he is admitted to hospital through the emergency room yesterday where he presented with complaints of progressive shortness of breath and generalized weakness. He also was having loss of appetite and weight loss. He was found to have features of congestive heart failure. His troponin T was found to be elevated. He had a PCI in November 2022 to the left circumflex artery and in January 2023 to the proximal LAD lesion. Cardiology consult is requested for further cardiac evaluation recommendations. This patient is known to have atherosclerotic heart disease. In November of last year, he had a cardiac catheterization followed by PCI of the mid circumflex lesion. 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 He had high-grade lesions in the proximal and mid LAD at that time. He was brought back to the hospital in January for a staged intervention of the LAD lesions. Apparently the lesions in the left and descending artery were calcified and tortuous. He had shockwave balloon lithotripsy of the proximal LAD lesion followed by balloon angioplasty. The mid LAD lesion apparently was difficult to intervene. It was opted to treat him medically at that time. This patient also is known to have severe peripheral artery disease, carotid artery disease, status post left carotid stenting and peripheral artery intervention. He has a history of chronic kidney disease. For the last couple of days, he been having shortness of breath. This has been gradually getting worse. He also was having easy fatigability. He was reluctant to come to the hospital. For the last couple of days, he been having a lot of back pains. No fever or chills. No severe cough. No swelling of the lower extremities. Even walking across the room was very difficult because of the weakness and shortness of breath. He also has been having loss of appetite, early satiety and weight loss. Stomach lesion was suspected. He was evaluated by general surgery to consider endoscopy studies. His echocardiogram done last year revealed moderate stenosis of the bioprosthetic valve in the aortic position. He had aortic valve replacement initially in 2006. He had a redo aortic valve surgery in 2016 at the [facility]. He was found to have moderate aortic valve stenosis last year by echocardiogram. Repeat echocardiogram yesterday revealed possibly severe aortic valve stenosis with a DVI of 0.22. He also was found to have significant drop in the LV ejection fraction from 55% to 25 to 30%. The cardiac catheterization findings in November 2022 is as follows * Left Main has mild 20-30% distal disease. * Right Coronary Artery is small sized vessel. No significant disease. * Mid Left Anterior Descending: severe 80- 90% stenosis, JUAN: 3 flow. 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 Mid Circumflex: significant 75% stenosis, JUAN: 3 flow. It appears to have a plaque rupture. * Coronary angiography shows co-dominanc Patient was found to be hypotensive in the ICU. He started on Levophed. Currently on 18 mics per KG per minute. Blood pressure is still in the 80s, systolic. He has no chest pain. He is mainly complaining about back pain. He also has a baseline shortness of breath. The shortness of breath has somewhat improved, since the admission. Patient continues to smoke. He was refusing to come to the hospital, even though the family members urged him to do so for the last few days. Review of Systems Narrative: CONSTITUTIONAL: No fever or chills. Feeling of generalized weakness EYES: No blurring of vision or other visual disturbances lately. ENT: No hoarseness of voice, auditory disturbances or sore throat. CARDIOVASCULAR: As mentioned above. RESPIRATORY: Shortness of breath as mentioned above GASTROINTESTINAL: Early satiety, loss of appetite and weight loss GENITOURINARY: History of chronic kidney disease INTEGUMENTARY: No skin rashes or history of skin cancer. NEURO: No transient ischemic attacks or amaurosis. PSYCHIATRIC: No history of psychosis or major depression. HEMATOLOGIC: Chronic anemia ENDOCRINE: Type 2 diabetes MUSCULOSKELETAL: No recent joint pain or swelling. ALLERGY/IMMUNOLOGY: As mentioned above. Medications/Allergies Home Medications Medication Instructions Recorded Confirmed Last Taken Type aspirin 81 mg tablet,delayed 162 mg PO DAILY 05/28/19 04/19/23 04/19/23 07:00 History release (Adult Low Dose Aspirin) multivitamin 1 tab PO DAILY 05/28/19 04/19/23 04/19/23 07:00 History clopidogrel 75 mg tablet 75 mg PO DAILY 08/11/21 04/19/23 04/19/23 07:00 History amlodipine 10 mg tablet 10 mg PO DAILY 12/06/22 04/19/23 04/19/23 07:00 History fluticasone fur. 200 mcg-umeclid 1 ea inhalation DAILY 12/06/22 04/19/23 04/19/23 07:00 History 62.5 mcg-vilant 25 mcg inhalat.powder (Trelegy Ellipta) mirtazapine 15 mg tablet 7.5 mg PO BEDTIME 12/06/22 04/19/23 04/18/23 20:00 History nitroglycerin 0.4 mg sublingual 0.4 mg sublingual Q5M PRN Chest 12/06/22 04/19/23 01/29/23 History tablet (Nitrostat) Pain omega 8-aea-vsh-fish oil 300 1 cap PO DAILY 12/06/22 04/19/23 04/19/23 07:00 History mg-1,000 mg capsule (Fish Oil) tamsulosin 0.4 mg capsule 0.8 mg PO QPM 12/06/22 04/19/23 04/18/23 20:00 History lisinopril 40 mg tablet See Rx Instructions .Route 02/05/23 04/19/23 04/19/23 07:00 Rx .COMPLEX #90 tabs simvastatin 20 mg tablet 20 mg PO QPM #90 tabs 02/07/23 04/19/23 04/18/23 20:00 Rx albuterol 90 mcg/actuation aerosol 90 mcg inhalation PRN PRN short of 04/19/23 04/19/23 Unknown History inhaler breath finasteride 5 mg tablet 5 mg PO DAILY 04/19/23 04/19/23 04/19/23 07:00 History furosemide 40 mg tablet 40 mg PO DAILY 04/19/23 04/19/23 04/19/23 07:00 History Allergies Allergy/AdvReac Type Severity Reaction Status Date / Time diltiazem Allergy Unknown unknown Verified 03/13/23 09:02 influenza virus vaccine Allergy Unknown unknown Verified 03/13/23 09:02 tval,purif- Current Medications Generic Name Dose Route Start Last Admin Trade Name Freq PRN Reason Stop Dose Admin Albuterol/Ipratropium 3 ml 04/19/23 19:09 04/20/23 07:29 Ipratropium-Albuterol 3 Ml Neb INHALATION 3 ml Q6H PRN Administration SHORTNESS OF BREATH Furosemide 40 mg 04/19/23 19:09 04/19/23 20:48 Furosemide 10 Mg/Ml Sdv 10ml IVP 40 mg Q24H DK Administration Heparin Sodium (Porcine) 0 unit 04/19/23 19:09 04/19/23 20:59 Heparin 5,000 Unit/Ml Inj 1 Ml IV 2,900 unit PRN PRN Administration Heparin weight-base protocol Protocol Heparin Sodium/Sodium Chloride 25,000 unit in 500 mls @ 0 mls/hr 04/19/23 19:09 04/20/23 05:53 Heparin Drip IV 0 unit/kg/hr .Q0M DK 0 mls/hr Titration Protocol Per Protocol norepinephrine 4 mg in 250 mls @ 0 mls/hr 04/20/23 03:15 04/20/23 04:48 Levophed IV 8 mcg/min .Q0M DK 30 mls/hr Titration Protocol Per Protocol Morphine Sulfate 15 mg 04/19/23 19:09 04/20/23 02:09 Morphine Ir 15 Mg Tablet PO 15 mg Q6H PRN Administration MODERATE PAIN Nicotine 1 patch 04/19/23 20:39 04/19/23 20:46 Nicotine 21 Mg Patch TRANSDERMA 1 patch DAILY DK Administration Zolpidem Tartrate 5 mg 04/19/23 21:00 04/19/23 20:45 Zolpidem 5 Mg Tablet PO 5 mg BEDTIME DK Administration PFSH Acute PFSH: Medical History Enlarged prostate BPH loc w urin obs/LUTS Elevated PSA Carotid stenosis, bilateral Smoking Diabetes Guillain-Delavan disease Hypertension Hyperlipidemia ASHD (arteriosclerotic heart disease) COPD (chronic obstructive pulmonary disease) Surgical History History of PTCA Status post cardiac pacemaker procedure Aortic valve replaced History of heart valve replacement Family History Father No problems noted. Mother , at age 80 No problems noted. Other Family history non-contributory Social History Smoking and tobacco/nicotine status: current every day tobacco/nicotine user Alcohol intake: never Substance/Drug Use: never Marital status: Current occupational status: retired Vitals/I&O/Wt Last Vital Signs Temp 98.4 F 04/20/23 05:00 Pulse 84 04/20/23 07:39 Resp 18 04/20/23 07:30 BP 86/42 04/20/23 05:00 Pulse Ox 91 04/20/23 07:30 O2 Del Method Oxymask 04/20/23 07:30 O2 Flow Rate 5 04/20/23 07:30 04/19/23 04/20/23 04/20/23 22:59 06:59 14:59 Intake Total 200.533 / 200.533 Output Total 1000 / 1000 Balance -799.467 / -799.467 Weight last 48 hrs Weight 119 lb 9 oz Weight 127 lb 4.8 oz Weight 124 lb Physical Exam Narrative: GENERAL: The patient is alert and oriented times three. Not in any acute distress. Moderate pallor. Somewhat emaciated HEENT: No significant pallor, icterus or lymphadenopathy.Oral cavity: There are no mucous membrane lesions. NECK: Trachea appears to be central. No masses noted. No JVD or thyromegaly appreciated. RESPIRATORY: Chest is symmetrical. No intercostals muscle retraction or any accessory muscle activation. There is no chest wall tenderness. Breath sounds are heard bilaterally. Scattered Rales and rhonchi. Diminished intensity of breath sounds in the left base. BREASTS: Deferred. HEART: The heart sounds are normal. No S3 or S4. Ejection systolic murmur of grade 3 or 6 in the aortic area.. No pericardial rub ABDOMEN: No vessel pulsations or distention. No tenderness. No organomegaly appreciated. Bowel sounds are normally heard. : Deferred. RECTAL: Deferred. LYMPHATIC: No lymphadenopathy noted in the neck. EXTREMITIES: No edema or cyanosis. Peripheral pulses are weak bilaterally MUSCULOSKELETAL: No acute joint deformities or swelling SKIN: There are no significant rashes or ecchymosis NEUROPSYCHIATRIC: The patient is alert and oriented x3. Appears to be somewhat lethargic Urinary Catheter Management: Márquez: Cath Placed During This Visit: yes Reason for Continuing Indwelling Catheter: Accurate Measurement of Urinary Output in Critically Ill Patients Urinary Catheter Date of Insertion: 04/19/23 Urinary Catheter Time of Insertion: 21:00 Data 04/20/23 11:41 04/20/23 03:05 Other Labs: Laboratory Last Values WBC 6.56 10^3/uL (3.29-11.43) 04/20/23 03:05 RBC 2.51 10^6/uL (3.85-5.65) L 04/20/23 03:05 Hgb 8.20 g/dL (11.27-16.99) L 04/20/23 03:05 Hct 24.5 % (37-53) L 04/20/23 03:05 MCV 97.6 fl (82-101) 04/20/23 03:05 MCH 32.7 pg (27-33) 04/20/23 03:05 MCHC 33.5 g/dL (30-55) 04/20/23 03:05 RDW 13.2 % (12.1-15.1) 04/20/23 03:05 Plt Count 198 10^3/cmm (157-399) 04/20/23 03:05 MPV 10.8 fL (7.4-10.4) H 04/20/23 03:05 Neut % (Auto) 75.6 % 04/20/23 03:05 Lymph % (Auto) 10.4 % 04/20/23 03:05 Hayes % (Auto) 10.5 % 04/20/23 03:05 Eos % (Auto) 2.7 % 04/20/23 03:05 Baso % (Auto) 0.3 % 04/20/23 03:05 Neut # (Auto) 4.96 10^3/uL (1.8-7.7) 04/20/23 03:05 Lymph # (Auto) 0.7 10^3/uL (0.8-4.8) L 04/20/23 03:05 Hayes # (Auto) 0.7 10^3/uL (0.2-0.9) 04/20/23 03:05 Eos # (Auto) 0.2 10^3/uL (0.0-0.8) 04/20/23 03:05 Baso # (Auto) 0.0 10^3/uL (0.0-0.1) 04/20/23 03:05 Nucleated RBC % (auto) 0 % 04/20/23 03:05 Nucleated RBCs # 0.0 /100WBC 04/20/23 03:05 PT 15.50 SECONDS (12.1-14.9) H 04/20/23 07:36 INR 1.19 (0.8-1.2) 04/20/23 07:36 APTT 126.0 SECONDS (23.9-36.7) H 04/20/23 03:05 Sodium 135 mmol/L (136-145) L 04/20/23 03:05 Potassium 4.3 mmol/L (3.5-5.1) 04/20/23 03:05 Chloride 100 mmol/L (98-107) 04/20/23 03:05 Carbon Dioxide 22 mmol/L (22-29) 04/20/23 03:05 Anion Gap 17.3 (5-19) 04/20/23 03:05 BUN 60 mg/dL (8-23) H 04/20/23 03:05 Creatinine 1.5 mg/dL (0.7-1.2) H 04/20/23 03:05 GFR Calculation Not Reportable 04/20/23 03:05 Glucose 95 mg/dL (65-115) 04/20/23 03:05 Calculated Osmolality 297 mOsm/kg (285-295) H 04/20/23 03:05 Calcium 8.6 mg/dL (8.5-10.5) 04/20/23 03:05 Magnesium 2.5 mg/dL (1.7-2.3) H 04/20/23 03:05 Total Bilirubin 0.5 mg/dL (0.15-1.2) 04/19/23 17:21 AST 26 U/L (0-40) 04/19/23 17:21 ALT 30 U/L (0-41) 04/19/23 17:21 Alkaline Phosphatase 121 U/L (40-130) 04/19/23 17:21 Lactate Dehydrogenase 259 U/L (135-225) H 04/20/23 03:05 Troponin T Baseline 608 ng/L (0-15) H* 04/19/23 17:21 Troponin T 120 Minute 552.6 ng/L (0-15) H 04/19/23 19:00 Delta Troponin T -55.4 ABS# (0-10) L 04/19/23 19:00 Troponin T Hi Sens 6Hr 584.6 ng/L (0-15) H 04/19/23 22:47 Troponin T Hi Sens 6Hr Delta -23.4 ng/L (0-12) L 04/19/23 22:47 C-Reactive Protein 40.5 mg/L (0.0-4.9) H 04/20/23 03:05 NT-Pro-B Natriuret Pep 41409 pg/mL (0-450) H 04/19/23 17:21 Total Protein 6.4 g/dL (6.6-8.7) L 04/19/23 17:21 Albumin 3.8 g/dL (3.5-5.2) 04/19/23 17:21 Globulin 2.6 g/dL (1.3-4.6) 04/19/23 17:21 Vitamin B12 1698 pg/mL (232-1245) H 04/19/23 17:21 Other data: CT of the abdomen and pelvis 1. Large right and small left pleural effusions. Patchy opacities in the left lung base which are nonspecific. 2. Severe atherosclerotic disease of the abdominal aorta and iliac arteries including the origins of the SMA celiac trunk and renal arteries. 3. No gastric mass Echocardiogram done on 04/20/2023 Left ventricle is mildly dilated. LV systolic function is severely reduced with EF of 25 to 30%. Moderate mitral regurgitation. Bioprosthetic aortic valve appears thickened and calcified. DVI 0.22 and is abnormal. Severe pulmonary hypertension Pleural effusion noted Compared to prior echocardiogram from 2022, LV systolic function has decreased significantly. DVI of aortic valve is also abnormal now. Pleural effusion seen now and severe pulmonary hypertension is also seen. EKG from 04/17/2023 100% AV paced rhythm. ST changes in leads V5 V6, suggestive of ischemia Chest x-ray revealed Borderline cardiac silhouette. Possible lung infiltrate in the right lower lobe region. Small pleural effusion. Prominent pulmonary venous markings. A&P Assessment and plan (1) Elevated troponin: Most likely this patient had a type II myocardial infarction complicated with congestive heart failure. The elevated troponin T, EKG changes, drop in the LV ejection fraction from 55% to 25-30%,, etc. are highly suggestive of a type I myocardial infarction. The patient is hemodynamically somewhat unstable. (2) Hypotension: Patient is on IV Levophed 18 mics per KG per minute. Even though the blood pressure is in the 80s, he seems to be fairly comfortable. Because of the cardiogenic shock type of picture and severe pulmonary hypertension, it may be appropriate to start him on Dobutrex 5 mics per KG per minute. The dose may be titrated up. Qualifiers: Hypotension type: other hypotension type Qualified Code(s): I95.89 - Other hypotension (3) Congestive heart failure: Patient may be carefully treated with diuretics on a as needed basis. Qualifiers: Heart failure type: systolic Heart failure chronicity: acute Qualified Code(s): I50.21 - Acute systolic (congestive) heart failure (4) Left ventricular systolic dysfunction (LVSD): The significant drop in the LV ejection fraction is new compared to the echocardiogram from November 2022. Most likely related to the acute AK. (5) Severe aortic valve stenosis: Patient has features of bioprosthetic aortic valve stenosis, with a DVI of 0.22 (6) Atherosclerotic heart disease of [place] coronary artery with other forms of angina pectoris: The cardiac catheterization in November of last year revealed high-grade lesions in the proximal and mid LAD and mid circumflex artery. She had intervention of the circumflex artery in November and the proximal LAD lesion January. The mid LAD lesion was attempted but apparently was unsuccessful. Shockwave balloon IVL was used to intervene in the proximal LAD lesion. The mid LAD lesion was found to be heavily calcified. So it was opted to treat him medically at that time. (7) Carotid stenosis, bilateral: Patient had a carotid stenting on the left side in 2020. No CVAs. (8) Status post cardiac pacemaker procedure: Pacemaker function was found to be appropriate. (9) Hyperlipidemia: May continue on the current medications. Qualifiers: Hyperlipidemia type: mixed hyperlipidemia Qualified Code(s): E78.2 - Mixed hyperlipidemia (10) Diabetes: Blood sugar was fairly under control. Qualifiers: Diabetes mellitus type: type 2 Diabetes mellitus computer terminal operator insulin use: without computer terminal operator use Diabetes mellitus complication status: with hyperglycemia Qualified Code(s): E11.65 - Type 2 diabetes mellitus with hyperglycemia Plan Other problems are Severe pulmonary hypertension by echocardiogram COPD/ongoing smoking abuse Chronic anemia Acute on chronic kidney disease Anorexia/weight loss/early satiety suggesting possible gastric malignancy-need to be further evaluated Generalized emaciation, could be multifactorial Patient has features of acute AK is complicated with hypotension and heart failure. The severe aortic valve stenosis is a compounding factor. He also may have some GI issues causing anorexia and weight loss. Also has some features of acute on chronic kidney disease. The peripheral artery disease seems to be stable. I had a long discussion with the patient and her family-daughter and the [id number]. Patient is high risk for any intervention at this point. He requires a cardiac catheterization to further evaluate the coronary status and decide on further management. The patient is willing to take the risk of a coronary intervention, if there is a hope of improving his condition. In view of his high risk status, these procedures need to be performed in a facility with surgical backup. So I contacted Dr. Landin at the [facility] and discussed his condition. Dr. Landin accepted his transfer for further management. In view of his multiple medical problems, he will be transferred to the medical ICU Discussed with the Dr. Thomas, who concurred with this plan Coding Level of Care Code 81376 Diagnoses Elevated troponin R79.89 Other specified hypotension I95.89 Hypotension type: other hypotension type Acute systolic congestive heart failure I50.21 Heart failure type: systolic Heart failure chronicity: acute Left ventricular systolic dysfunction (LVSD) I51.9 Severe aortic valve stenosis I35.0 Atherosclerotic heart disease of [place] coronary artery with other forms of angina pectoris I25.118 Carotid stenosis, bilateral I65.23 Status post cardiac pacemaker procedure Z95.0 Mixed hyperlipidemia E78.2 Hyperlipidemia type: mixed hyperlipidemia Type 2 diabetes mellitus with hyperglycemia, without long-term current use of insulin E11.65 Diabetes mellitus type: type 2 Diabetes mellitus computer terminal operator insulin use: without computer terminal operator use Diabetes mellitus complication status: with hyperglycemia Time Spent (min) 110
--- NOTE | 2023-04-20 09:09 | PC.SOCIAL ---
IMM Update pg 2 of IMM updated and reviewed w/ patient. Copy provided and copy dated, initialed and placed in chart.
--- NOTE | 2023-04-20 09:54 | PM.PN ---
Subjective Subjective: Drop in hemoglobin noted Will keep hemoglobin above 9 we will give 1 unit PRBC Recheck H&H Stop Lasix Currently on Levophed at 10 mics Creatinine worsening Patient is n.p.o. for thoracentesis Spoke with Dr. Dc Herrera/I&O/Wt Last Vital Signs Temp 98.4 F 04/20/23 05:00 Pulse 88 04/20/23 09:00 Resp 17 04/20/23 09:00 BP 86/42 04/20/23 09:00 Pulse Ox 91 04/20/23 09:00 O2 Del Method Oxymask 04/20/23 07:30 O2 Flow Rate 5 04/20/23 07:30 04/19/23 04/20/23 04/20/23 22:59 06:59 14:59 Intake Total 200.533 / 200.533 157.875 / 157.875 Output Total 1000 / 1000 Balance -799.467 / -799.467 157.875 / 157.875 Weight last 48 hrs Weight 54.233 kg Weight 57.742 kg Weight 56.245 kg Physical Exam Narrative: Patient is awake and alert GCS 15 He is upset that he is in the ICU because he was not able to sleep last night Currently on 5 L OxyMask Currently on Levophed Awake and alert Signs of fluid load improving S1, S2 Abdomen soft Urinary Catheter Management: Márquez: Cath Placed During This Visit: yes Reason for Continuing Indwelling Catheter: Accurate Measurement of Urinary Output in Critically Ill Patients Urinary Catheter Date of Insertion: 04/19/23 Urinary Catheter Time of Insertion: 21:00 Data 04/20/23 03:05 04/20/23 03:05 A&P Assessment and plan (1) Hypovolemic shock: (2) Acute decompensated heart failure: (3) Non-STEMI (non-ST elevated myocardial infarction): (4) Exertional dyspnea: (5) Carotid stenosis, bilateral: (6) Status post cardiac pacemaker procedure: (7) Diabetes: Qualifiers: Diabetes mellitus type: type 2 Diabetes mellitus terminal operations supervisor insulin use: without terminal operations supervisor use Diabetes mellitus complication status: with hyperglycemia Qualified Code(s): E11.65 - Type 2 diabetes mellitus with hyperglycemia (8) Hyponatremia: (9) Acute hyponatremia: (10) BPH loc w urin obs/LUTS: (11) SOB (shortness of breath): (12) Smoking: Plan Non-STEMI Currently on heparin drip It was put on hold for thoracentesis this morning No active chest pain No active EKG changes for infarction Hemorrhagic shock Currently on Levophed Will give 1 unit PRBC Source of bleeding unidentified Acute on chronic kidney disease: Cardiorenal Patient clinically looks better as compared to day of admission I will hold Lasix today Give him gentle fluid hydration and PRBC 1 unit Pleural effusion acute hypoxia Currently on 5 L OxyMask Request thoracentesis Concern for gastric mass, however his current CT scan of abdomen pelvis has not commented on gastric mass, it was concern on the previous CT scan. I will ask radiology to compare CT scan Patient is full code B12 is normal Currently in ICU Overnight got transferred to ICU for shock Full code If no plan for angiogram will resume diet Attestations Medical Necessity Statement*: Continue ICU management Diagnoses Hypovolemic shock R57.1 Acute decompensated heart failure I50.9 Non-STEMI (non-ST elevated myocardial infarction) I21.4 Exertional dyspnea R06.09 Carotid stenosis, bilateral I65.23 Status post cardiac pacemaker procedure Z95.0 Type 2 diabetes mellitus with hyperglycemia, without long-term current use of insulin E11.65 Diabetes mellitus type: type 2 Diabetes mellitus terminal operations supervisor insulin use: without penitentiary use Diabetes mellitus complication status: with hyperglycemia Hyponatremia E87.1 Acute hyponatremia E87.1 BPH loc w urin obs/LUTS N40.1 SOB (shortness of breath) R06.02 Smoking F17.200
[2023-04-20 10:20] LABS: Partial Thromboplastin Time 32.1 SECONDS (23.9-36.7)
[2023-04-20] MEDS: norepinephrine 4 MG/250 ML BAG 67.5 MG IV ×5 (10:36→23:59)
[2023-04-20] MEDS: nicotine 21 mg Patch 1 PATCH TRANSDERMA (10:41)
[2023-04-20] MEDS: pantoprazole 40 mg SDV IVP ×2 (10:41→17:46)
[2023-04-20 12:13] LABS: Hematocrit 30.3 % (37-53)
[2023-04-20 12:28] LABS: INR 1.15 (0.8-1.2)
[2023-04-20 12:29] LABS: Partial Thromboplastin Time 29.8 SECONDS (23.9-36.7)
--- NOTE | 2023-04-20 15:08 | PM.CONSULT ---
Providers/Reason For Consult Consulting Physician/Specialty*: Dr. Connor Molina, DO/General surgery Reason for Consult*: Possible gastric mass/GI bleed Attending Physician: Yusuf Thomas MD Primary Care Provider: Annabel Medina MD History of Present Illness History of Present Illness Luisa Walters is a 77 year old male who presented to the hospital with chest pain and melena. An outside CT of the abdomen pelvis revealed a possible gastric mass. He recently had a coronary stent placed and is on Plavix. He does report back pain. Nothing makes the pain better or worse. The pain does not radiate. He denies any abdominal pain nausea, emesis and/or constipation. He is having some loose stools. Repeat CT of the abdomen pelvis done at the hospital here does not show a gastric mass. Review of Systems General: Reports: 10 or more systems reviewed and unremarkable except in HPI and below Medications/Allergies Home Medications Medication Instructions Recorded Confirmed Last Taken Type aspirin 81 mg tablet,delayed 162 mg PO DAILY 05/28/19 04/19/23 04/19/23 07:00 History release (Adult Low Dose Aspirin) multivitamin 1 tab PO DAILY 05/28/19 04/19/23 04/19/23 07:00 History clopidogrel 75 mg tablet 75 mg PO DAILY 08/11/21 04/19/23 04/19/23 07:00 History amlodipine 10 mg tablet 10 mg PO DAILY 12/06/22 04/19/23 04/19/23 07:00 History fluticasone fur. 200 mcg-umeclid 1 ea inhalation DAILY 12/06/22 04/19/23 04/19/23 07:00 History 62.5 mcg-vilant 25 mcg inhalat.powder (Trelegy Ellipta) mirtazapine 15 mg tablet 7.5 mg PO BEDTIME 12/06/22 04/19/23 04/18/23 20:00 History nitroglycerin 0.4 mg sublingual 0.4 mg sublingual Q5M PRN Chest 12/06/22 04/19/23 01/29/23 History tablet (Nitrostat) Pain omega 4-ftw-zbn-fish oil 300 1 cap PO DAILY 12/06/22 04/19/23 04/19/23 07:00 History mg-1,000 mg capsule (Fish Oil) tamsulosin 0.4 mg capsule 0.8 mg PO QPM 12/06/22 04/19/23 04/18/23 20:00 History lisinopril 40 mg tablet See Rx Instructions .Route 02/05/23 04/19/23 04/19/23 07:00 Rx .COMPLEX #90 tabs simvastatin 20 mg tablet 20 mg PO QPM #90 tabs 02/07/23 04/19/23 04/18/23 20:00 Rx albuterol 90 mcg/actuation aerosol 90 mcg inhalation PRN PRN short of 04/19/23 04/19/23 Unknown History inhaler breath finasteride 5 mg tablet 5 mg PO DAILY 04/19/23 04/19/23 04/19/23 07:00 History furosemide 40 mg tablet 40 mg PO DAILY 04/19/23 04/19/23 04/19/23 07:00 History Allergies Allergy/AdvReac Type Severity Reaction Status Date / Time diltiazem Allergy Unknown unknown Verified 03/13/23 09:02 influenza virus vaccine Allergy Unknown unknown Verified 03/13/23 09:02 tval,purif- Current Medications Generic Name Dose Route Start Last Admin Trade Name Freq PRN Reason Stop Dose Admin Albuterol/Ipratropium 3 ml 04/19/23 19:09 04/20/23 07:29 Ipratropium-Albuterol 3 Ml Neb INHALATION 3 ml Q6H PRN Administration SHORTNESS OF BREATH Furosemide 40 mg 04/19/23 19:09 04/19/23 20:48 Furosemide 10 Mg/Ml Sdv 10ml IVP 40 mg Q24H DK Administration Heparin Sodium (Porcine) 0 unit 04/19/23 19:09 04/19/23 20:59 Heparin 5,000 Unit/Ml Inj 1 Ml IV 2,900 unit PRN PRN Administration Heparin weight-base protocol Protocol Heparin Sodium/Sodium Chloride 25,000 unit in 500 mls @ 0 mls/hr 04/19/23 19:09 04/20/23 05:53 Heparin Drip IV 0 unit/kg/hr .Q0M DK 0 mls/hr Titration Protocol Per Protocol norepinephrine 4 mg in 250 mls @ 0 mls/hr 04/20/23 03:15 04/20/23 15:07 Levophed IV 18 mcg/min .Q0M DK 67.5 mls/hr Administration Protocol Per Protocol Morphine Sulfate 15 mg 04/19/23 19:09 04/20/23 02:09 Morphine Ir 15 Mg Tablet PO 15 mg Q6H PRN Administration MODERATE PAIN Nicotine 1 patch 04/19/23 20:39 04/20/23 10:41 Nicotine 21 Mg Patch TRANSDERMA 1 patch DAILY DK Administration Pantoprazole Sodium 40 mg 04/20/23 09:00 04/20/23 10:41 Pantoprazole 40 Mg Sdv IVP 40 mg BID DK Administration Senna/Docusate Sodium 1 tab 04/20/23 09:00 04/20/23 10:37 Sennosides-Docusate Tablet PO Not Given DAILY DK Zolpidem Tartrate 5 mg 04/19/23 21:00 04/19/23 20:45 Zolpidem 5 Mg Tablet PO 5 mg BEDTIME DK Administration PFSH Acute PFSH: Medical History (Updated 04/30/23 @ 17:19 by Connor Molina DO) Gastric mass Non-STEMI (non-ST elevated myocardial infarction) Acute decompensated heart failure Hyponatremia Anginal equivalent Exertional dyspnea Acute hyponatremia SOB (shortness of breath) 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 Mother , at age 80 No problems noted. Other Family history non-contributory Social History Smoking and tobacco/nicotine status: current every day tobacco/nicotine user Alcohol intake: never Substance/Drug Use: never Marital status: Current occupational status: retired Vitals/I&O/Wt Last Vital Signs Temp 98.4 F 04/20/23 05:00 Pulse 88 04/20/23 09:00 Resp 17 04/20/23 09:00 BP 86/42 04/20/23 09:00 Pulse Ox 91 02/23/24 09:00 O2 Del Method Oxymask 04/20/23 07:30 O2 Flow Rate 5 04/20/23 07:30 04/20/23 04/20/23 04/20/23 06:59 14:59 22:59 Intake Total 200.533 / 200.533 486.000 / 486.000 Output Total 1000 / 1000 Balance -799.467 / -799.467 486.000 / 486.000 Weight last 48 hrs Weight 119 lb 9 oz Weight 127 lb 4.8 oz Weight 124 lb Physical Exam Narrative: General : Patient is well developed , no acute distress, oriented x3 Head : Normal cephalic, a-traumatic. Ears : Pinnae and external canal are normal. Hearing is normal. Eyes : PERRLA, Sclera and injection are normal. No conjunctival discharge. Nose : Mucous membranes are without erythema. Throat : buccal mucosa is normal, gums are without significant recession or hypertrophy. Lungs : Equal chest rise bilaterally, no use of accessory muscles, trachea is midline. Cor : Rate and rhythm are normal. Abdomen : Soft, ND, NT, no g/r/m Extremities : No edema, no cyanosis or clubbing, dorsalis pedis pulses are present bilaterally, non-tender to palpation of calves. Upper extremities are normal bilaterally. Back : non-tender to palpation, no CVA tenderness. Neuro : CN II - XII intact, Upper and lower extremities have equal and full strength Urinary Catheter Management: Márquez: Cath Placed During This Visit: yes Reason for Continuing Indwelling Catheter: Accurate Measurement of Urinary Output in Critically Ill Patients Urinary Catheter Date of Insertion: 04/19/23 Urinary Catheter Time of Insertion: 21:00 Data 04/20/23 16:23 04/20/23 03:05 A&P Assessment and plan (1) Internal carotid artery stent present: (2) Elevated troponin: (3) GI bleed: Plan He would benefit from an EGD. However it appears that he is can be transferred to a tertiary care facility for his cardiogenic shock Medical management per hospitalist Coding Level of Care Code 76480 Diagnoses Internal carotid artery stent present Z95.828 Elevated troponin R79.89 GI bleed K92.2
[2023-04-20 16:37] LABS: Hematocrit 33.4 % (37-53)
--- NOTE | 2023-04-20 16:48 | P.TS_ITS ---
Transfer Summary Providers Date of Admission: 04/19/23 17:57 Date of Discharge/Transfer: 04/20/23 Attending Provider at Admission: Yusuf Thomas MD Attending Provider at Transfer: Yusuf Thomas MD Primary Care Provider: Annabel Medina MD Transfer Plans: Anticipated date of transfer: 04/20/23 . Diagnoses at Discharge Discharge Diagnosis (1) Elevated troponin: Status: Acute (2) Hypotension: Status: Acute Qualifiers: Hypotension type: other hypotension type Qualified Code(s): I95.89 - Other hypotension (3) Congestive heart failure: Status: Acute Qualifiers: Heart failure type: systolic Heart failure chronicity: acute Qualified Code(s): I50.21 - Acute systolic (congestive) heart failure (4) Left ventricular systolic dysfunction (LVSD): Status: Acute (5) Severe aortic valve stenosis: Status: Acute (6) Atherosclerotic heart disease of [place] coronary artery with other forms of angina pectoris: Status: Acute (7) Carotid stenosis, bilateral: Status: Acute (8) Status post cardiac pacemaker procedure: Status: Acute (9) Hyperlipidemia: Status: Acute Qualifiers: Hyperlipidemia type: mixed hyperlipidemia Qualified Code(s): E78.2 - Mixed hyperlipidemia (10) Diabetes: Status: Acute Qualifiers: Diabetes mellitus type: type 2 Diabetes mellitus 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 He also was having loss of appetite and weight loss. He was found to have features of congestive heart failure. His troponin T was found to be elevated. He had a PCI in November 2022 to the left circumflex artery and in January 2023 to the proximal LAD lesion. Cardiology consult is requested for further cardiac evaluation recommendations. This patient is known to have atherosclerotic heart disease. In November of last year, he had a cardiac catheterization followed by PCI of the mid circumflex lesion. 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 He had high-grade lesions in the proximal and mid LAD at that time. He was brought back to the hospital in January for a staged intervention of the LAD lesions. Apparently the lesions in the left and descending artery were calcified and tortuous. He had shockwave balloon lithotripsy of the proximal LAD lesion followed by balloon angioplasty. The mid LAD lesion apparently was difficult to intervene. It was opted to treat him medically at that time. This patient also is known to have severe peripheral artery disease, carotid artery disease, status post left carotid stenting and peripheral artery intervention. He has a history of chronic kidney disease. For the last couple of days, he been having shortness of breath. This has been gradually getting worse. He also was having easy fatigability. He was reluctant to come to the hospital. For the last couple of days, he been having a lot of back pains. No fever or chills. No severe cough. No swelling of the lower extremities. Even walking across the room was very difficult because of the weakness and shortness of breath. He also has been having loss of appetite, early satiety and weight loss. Stomach lesion was suspected. He was evaluated by general surgery to consider endoscopy studies. 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 He had aortic valve replacement initially in 2006. He had a redo aortic valve surgery in 2016 at the [facility]. He was found to have moderate aortic valve stenosis last year by echocardiogram. Repeat echocardiogram yesterday revealed possibly severe aortic valve stenosis with a DVI of 0.22. He also was found to have significant drop in the LV ejection fraction from 55% to 25 to 30%. The cardiac catheterization findings in November 2022 is as follows * Left Main has mild 20-30% distal disease. * Right Coronary Artery is small sized vessel. No significant disease. * Mid Left Anterior Descending: severe 80- 90% stenosis, JUAN: 3 flow. 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 Mid Circu mflex: significant 75% stenosis, JUAN: 3 flow. It appears to have a plaque rupture. * Coronary angiography shows co-dominanc Patient was found to be hypotensive in the ICU. Cardiogenic shock he started on Levophed. Currently on 18 mics per KG per minute. Dobutamine was added at 5 mics per kilo . He has no chest pain. He is mainly complaining about back pain. He also has a baseline shortness of breath. The shortness of breath has somewhat improved, since the admission. Patient continues to smoke. He was refusing to come to the hospital, even though the family members urged him to do so for the last few days.7-year-old male with history of established coronary disease with recent stent in January, Has been accepted by Dr. Mcclure at [facility] Dr. Irwin has coordinated the transfer He will go to the ICU and cardiology will be consulted Please note recent CT scan abdomen pelvis has not shown any gastric mass Hemoglobin has remained stable at 10 At the time of discharge his creatinine is 1.5 on admission it was 1.3, received IV Lasix 40 mg on admission, ER physician ordered CT abdomen pelvis with contrast, component of contrast-induced nephropathy? CT abdomen pelvis done on 04/19 with contrast FINDINGS: Pleural spaces: Large right and small left pleural effusions. Patchy opacities in the left lung base which are nonspecific. Liver: Normal. No mass. Gallbladder and bile ducts: Normal. No calcified stones. No ductal dilation. Pancreas: Normal. No ductal dilation. Spleen: Normal. No splenomegaly. Adrenal glands: Normal. No mass. Kidneys and ureters: Normal. No hydronephrosis. Stomach and bowel: No gastric mass identified. Appendix: The appendix is not visualized but there are no secondary signs of acute appendicitis. Intraperitoneal space: Unremarkable. No free air. No significant fluid collection. Vasculature: Severe atherosclerotic disease of the abdominal aorta and iliac arteries including the origins of the SMA celiac trunk and renal arteries. Lymph nodes: Unremarkable. No enlarged lymph nodes. Urinary bladder: Unremarkable as visualized. Reproductive: Unremarkable as visualized. Bones/joints: Severe degenerative disc disease at L2-L3 with associated endplate changes. Soft tissues: Unremarkable. CT/CT abdomen pelvis w con* [id number] IMPRESSION: 1. Large right and small left pleural effusions. Patchy opacities in the left lung base which are nonspecific. 2. Severe atherosclerotic disease of the abdominal aorta and iliac arteries including the origins of the SMA celiac trunk and renal arteries. 3. No gastric mass Physical Exam Narrative: Signs of fluid overload Currently on 5 L OxyMask Awake and alert no active chest pain Pleasant cooperative Nonfocal neuroexam 2+ edema of lower extremities Urinary Catheter Management: Márquez: Cath Placed During This Visit: yes Reason for Continuing Indwelling Catheter: Accurate Measurement of Urinary Output in Critically Ill Patients Urinary Catheter Date of Insertion: 04/19/23 Urinary Catheter Time of Insertion: 21:00 TS Data Studies Completed and Pending Pending at discharge Category Date Time Status Basic Metabolic Panel AM LABS Lab 04/21/23 04:00 Ordered Cell Count w Diff Pleural Fld Routine Lab 04/19/23 19:28 Uncollected Complete Blood Count w/Auto AM LABS Lab 04/21/23 04:00 Ordered Cyto Order Verification Routine Lab 04/19/23 19:28 Ordered Glucose Pleural Fluid Routine Lab 04/19/23 19:28 Uncollected LDH Pleural Fluid Routine Lab 04/19/23 19:28 Uncollected Occult Blood Stool [Immunochemical Fecal OCB] Routine Lab 04/20/23 10:01 Uncollected PRBC [Leukocyte Reduced RBC] Routine Lab 04/20/23 11:41 Results Platelet Count Q2D Lab 04/21/23 04:00 Ordered Platelet Count Q2D Lab 04/23/23 04:00 Ordered Pleural Fluid Albumin Routine Lab 04/19/23 19:28 Uncollected Type and Screen Routine Lab 04/20/23 11:41 Results pH Pleural Fluid Routine Lab 04/19/23 19:28 Uncollected Completed Studies During Hospitalization Category Date Time Status CT abdomen pelvis w con* [id number] Stat Cat Scan 04/19/23 17:29 Completed XR chest 1V portable [id number] Stat Exams 04/19/23 17:05 Completed CV. echo complete* [id number] Routine Ultrasound 04/19/23 19:09 Completed [place] chest [id number] Routine Ultrasound 04/20/23 06:26 Completed Laboratory Last Values WBC 6.56 10^3/uL (3.29-11.43) 04/20/23 03:05 RBC 2.51 10^6/uL (3.85-5.65) L 04/20/23 03:05 Hgb 11.20 g/dL (11.27-16.99) L 04/20/23 16:23 Hct 33.4 % (37-53) L 04/20/23 16:23 MCV 97.6 fl (82-101) 04/20/23 03:05 MCH 32.7 pg (27-33) 04/20/23 03:05 MCHC 33.5 g/dL (30-55) 04/20/23 03:05 RDW 13.2 % (12.1-15.1) 04/20/23 03:05 Plt Count 198 10^3/cmm (157-399) 04/20/23 03:05 MPV 10.8 fL (7.4-10.4) H 04/20/23 03:05 Neut % (Auto) 75.6 % 04/20/23 03:05 Lymph % (Auto) 10.4 % 04/20/23 03:05 [place] % (Auto) 10.5 % 04/20/23 03:05 Eos % (Auto) 2.7 % 04/20/23 03:05 Baso % (Auto) 0.3 % 04/20/23 03:05 Neut # (Auto) 4.96 10^3/uL (1.8-7.7) 04/20/23 03:05 Lymph # (Auto) 0.7 10^3/uL (0.8-4.8) L 04/20/23 03:05 [place] # (Auto) 0.7 10^3/uL (0.2-0.9) 04/20/23 03:05 Eos # (Auto) 0.2 10^3/uL (0.0-0.8) 04/20/23 03:05 Baso # (Auto) 0.0 10^3/uL (0.0-0.1) 04/20/23 03:05 Nucleated RBC % (auto) 0 % 04/20/23 03:05 Nucleated RBCs # 0.0 /100WBC 04/20/23 03:05 PT 15.10 SECONDS (12.1-14.9) H 04/20/23 11:41 INR 1.15 (0.8-1.2) 04/20/23 11:41 APTT 29.8 SECONDS (23.9-36.7) 04/20/23 11:41 Sodium 135 mmol/L (136-145) L 04/20/23 03:05 Potassium 4.3 mmol/L (3.5-5.1) 04/20/23 03:05 Chloride 100 mmol/L (98-107) 04/20/23 03:05 Carbon Dioxide 22 mmol/L (22-29) 04/20/23 03:05 Anion Gap 17.3 (5-19) 04/20/23 03:05 BUN 60 mg/dL (8-23) H 04/20/23 03:05 Creatinine 1.5 mg/dL (0.7-1.2) H 04/20/23 03:05 GFR Calculation Not Reportable 04/20/23 03:05 Glucose 95 mg/dL (65-115) 04/20/23 03:05 Calculated Osmolality 297 mOsm/kg (285-295) H 04/20/23 03:05 Calcium 8.6 mg/dL (8.5-10.5) 04/20/23 03:05 Magnesium 2.5 mg/dL (1.7-2.3) H 04/20/23 03:05 Total Bilirubin 0.5 mg/dL (0.15-1.2) 04/19/23 17:21 AST 26 U/L (0-40) 04/19/23 17:21 ALT 30 U/L (0-41) 04/19/23 17:21 Alkaline Phosphatase 121 U/L (40-130) 04/19/23 17:21 Lactate Dehydrogenase 259 U/L (135-225) H 04/20/23 03:05 Troponin T Baseline 608 ng/L (0-15) H* 04/19/23 17:21 Troponin T 120 Minute 552.6 ng/L (0-15) H 04/19/23 19:00 Delta Troponin T -55.4 ABS# (0-10) L 04/19/23 19:00 Troponin T Hi Sens 6Hr 584.6 ng/L (0-15) H 04/19/23 22:47 Troponin T Hi Sens 6Hr Delta -23.4 ng/L (0-12) L 04/19/23 22:47 C-Reactive Protein 40.5 mg/L (0.0-4.9) H 04/20/23 03:05 NT-Pro-B Natriuret Pep 61307 pg/mL (0-450) H 04/19/23 17:21 Total Protein 6.4 g/dL (6.6-8.7) L 04/19/23 17:21 Albumin 3.8 g/dL (3.5-5.2) 04/19/23 17:21 Globulin 2.6 g/dL (1.3-4.6) 04/19/23 17:21 Vitamin B12 1698 pg/mL (232-1245) H 04/19/23 17:21 Blood Type O Positive 04/20/23 11:41 Rho(D) Type Rh positive 04/20/23 11:41 Antibody Screen Negative 04/20/23 11:41 Crossmatch See Detail 04/20/23 11:41 Radiology Impressions Chest X-Ray 04/19/23 17:05 IMPRESSION: Irregular opacities in the lung bases. Abdomen/Pelvis CT 04/19/23 17:29 IMPRESSION: 1. Large right and small left pleural effusions. Patchy opacities in the left lung base which are nonspecific. 2. Severe atherosclerotic disease of the abdominal aorta and iliac arteries including the origins of the SMA celiac trunk and renal arteries. 3. No gastric mass Recent Clincial Data Last Vital Signs Temp 98.4 F 04/20/23 05:00 Pulse 88 04/20/23 09:00 Resp 17 04/20/23 09:00 BP 86/42 04/20/23 09:00 Pulse Ox 91 04/20/23 09:00 O2 Del Method Oxymask 04/20/23 07:30 O2 Flow Rate 5 04/20/23 07:30 Vital Signs Temp Pulse Resp BP Pulse Ox O2 Del Method O2 Flow Rate 04/20/23 09:00 88 17 86/42 91 04/20/23 08:00 95 17 88/60 89 L 04/20/23 07:39 84 04/20/23 07:30 86 18 91 Oxymask 5 04/20/23 07:00 85 16 98/61 88 L 04/20/23 06:00 89 15 96/56 87 L 04/20/23 05:59 86 04/20/23 05:00 98.4 F 101 H 14 86/42 89 L Nasal Cannula 4 Intake & Output/Weight 04/18/23 04/19/23 04/20/23 04/21/23 06:59 06:59 06:59 06:59 Intake Total 200.533 / 200.533 486.000 / 486.000 Output Total 1000 / 1000 Balance -799.467 / -799.467 486.000 / 486.000 Weight 54.233 kg Vitals Last Vital Signs Temp 98.4 F 04/20/23 05:00 Pulse 88 04/20/23 09:00 Resp 17 04/20/23 09:00 BP 86/42 04/20/23 09:00 Pulse Ox 91 04/20/23 09:00 O2 Del Method Oxymask 04/20/23 07:30 O2 Flow Rate 5 04/20/23 07:30 TS Medications Medications Acetaminophen (Acetaminophen 500 Mg Tablet) 500 mg PO Q4H PRN PRN Reason: fever Albuterol/Ipratropium (Ipratropium-Albuterol 3 Ml Neb) 3 ml INHALATION Q6H PRN PRN Reason: SHORTNESS OF BREATH Last Admin: 04/20/23 07:29 Dose: 3 ml Alprazolam (Alprazolam 0.5 Mg Tablet) 0.5 mg PO TID PRN PRN Reason: ANXIETY Furosemide (Furosemide 10 Mg/Ml Sdv 10ml) 40 mg IVP Q24H DK Last Admin: 04/19/23 20:48 Dose: 40 mg Heparin Sodium (Porcine) (Heparin 5,000 Unit/Ml Inj 1 Ml) 0 unit IV PRN PRN; Protocol PRN Reason: Heparin weight-base protocol Last Admin: 04/19/23 20:59 Dose: 2,900 unit Heparin Sodium/Sodium Chloride (Heparin Drip) 25,000 unit in 500 mls @ 0 mls/hr IV .Q0M DK; Protocol Last Titration: 04/20/23 05:53 Dose: 0 unit/kg/hr, 0 mls/hr norepinephrine (Levophed) 4 mg in 250 mls @ 0 mls/hr IV .Q0M DK; Protocol Last Admin: 04/20/23 15:07 Dose: 18 mcg/min, 67.5 mls/hr Sodium Chloride (Sodium Chloride 0.9%) 1,000 mls @ 75 mls/hr IV .[id number] DK Stop: 04/20/23 18:00 Lanolin (Lanolin Oint 7 Gm) 1 applic TOPICAL PRN PRN PRN Reason: DRYNESS Morphine Sulfate (Morphine Ir 15 Mg Tablet) 15 mg PO Q6H PRN PRN Reason: MODERATE PAIN Last Admin: 04/20/23 02:09 Dose: 15 mg Nicotine (Nicotine 21 Mg Patch) 1 patch TRANSDERMA DAILY DK Last Admin: 04/20/23 10:41 Dose: 1 patch Ondansetron HCl (Ondansetron 2 Mg/Ml Sdv 2 Ml) 4 mg IVP Q6H PRN PRN Reason: NAUSEA AND VOMITING Pantoprazole Sodium (Pantoprazole 40 Mg Sdv) 40 mg IVP BID [facility] Last Admin: 04/20/23 10:41 Dose: 40 mg Senna/Docusate Sodium (Sennosides-Docusate Tablet) 1 tab PO DAILY [facility] Last Admin: 04/20/23 10:37 Dose: Not Given Sodium Chloride (Sodium Chloride 0.9% 100 Ml Bag) 50 ml IV PRN PRN PRN Reason: Blood transfusion prime and flush Stop: 04/21/23 09:54 Zolpidem Tartrate (Zolpidem 5 Mg Tablet) 5 mg PO BEDTIME [facility] Last Admin: 04/19/23 20:45 Dose: 5 mg Discontinued Medications Amlodipine Besylate (Amlodipine 10 Mg Tablet) 10 mg PO DAILY [facility] Last Admin: 04/20/23 02:02 Dose: Not Given Albumin Human (Albumin) 12.5 gm in 250 mls @ 300 mls/hr IV ONCE ONE Stop: 04/20/23 02:05 Last Admin: 04/20/23 01:47 Dose: Not Given Albumin Human (Albumin) 12.5 gm in 50 mls @ 60 mls/hr IV ONCE ONE Stop: 04/20/23 02:35 Last Infusion: 04/20/23 03:31 Dose: Infused Iohexol (Iohexol 350 Mg/Ml 500 Ml Btl (Per Ml)) 0 ml IV ONCE ONE Stop: 04/19/23 18:44 Last Admin: 04/19/23 18:43 Dose: 100 ml Nicotine (Nicotine 21 Mg Patch) 1 patch TRANSDERMA DAILY [facility] Allergies diltiazem Allergy (Unknown, Verified 03/13/23 09:02) unknown influenza virus vaccine tval,purif- Allergy (Unknown, Verified 03/13/23 09:02) unknown Home Medications aspirin 81 mg tablet,delayed release (Adult Low Dose Aspirin) 162 mg PO DAILY 05/28/19 [History Confirmed 04/19/23] multivitamin 1 tab PO DAILY 05/28/19 [History Confirmed 04/19/23] clopidogrel 75 mg tablet 75 mg PO DAILY 08/11/21 [History Confirmed 04/19/23] amlodipine 10 mg tablet 10 mg PO DAILY 12/06/22 [History Confirmed 04/19/23] fluticasone fur. 200 mcg-umeclid 62.5 mcg-vilant 25 mcg inhalat.powder (Trelegy Ellipta) 1 ea inhalation DAILY 12/06/22 [History Confirmed 04/19/23] mirtazapine 15 mg tablet 7.5 mg PO BEDTIME 12/06/22 [History Confirmed 04/19/23] nitroglycerin 0.4 mg sublingual tablet (Nitrostat) 0.4 mg sublingual Q5M PRN Chest Pain 12/06/22 [History Confirmed 04/19/23] omega 3-xbh-cjl-fish oil 300 mg-1,000 mg capsule (Fish Oil) 1 cap PO DAILY 12/06/22 [History Confirmed 04/19/23] tamsulosin 0.4 mg capsule 0.8 mg PO QPM 12/06/22 [History Confirmed 04/19/23] lisinopril 40 mg tablet See Rx Instructions .Route .COMPLEX #90 tabs 02/05/23 [Rx Confirmed 04/19/23] simvastatin 20 mg tablet 20 mg PO QPM #90 tabs 02/07/23 [Rx Confirmed 04/19/23] albuterol 90 mcg/actuation aerosol inhaler 90 mcg inhalation PRN PRN short of breath 04/19/23 [History Confirmed 04/19/23] finasteride 5 mg tablet 5 mg PO DAILY 04/19/23 [History Confirmed 04/19/23] furosemide 40 mg tablet 40 mg PO DAILY 04/19/23 [History Confirmed 04/19/23] Discharge Plan Discharge Patient Disposition: Xfer Other Condition: Stable Prescriptions: No Action multivitamin Tablet 1 tab PO DAILY aspirin [Adult Low Dose Aspirin] 81 mg tablet,delayed release (DR/EC) 162 mg PO DAILY clopidogrel 75 mg tablet 75 mg PO DAILY lisinopril 40 mg tablet See Rx Instructions .ROUTE .COMPLEX Qty: 90 1RF Dose Instruction: Take 1 tablet by mouth once daily Rx Instructions: Take 1 tablet by mouth once daily simvastatin 20 mg tablet 20 mg PO QPM Qty: 90 3RF furosemide 40 mg tablet 40 mg PO DAILY albuterol 90 mcg/actuation Aerosol 90 mcg INHALATION PRN PRN (Reason: short of breath) finasteride 5 mg Tablet 5 mg PO DAILY mirtazapine 15 mg tablet 7.5 mg PO BEDTIME omega 8-nzg-qzp-fish oil [Fish Oil] 300-1,000 mg Capsule 1 cap PO DAILY Trelegy Ellipta 200-62.5-25 mcg blister with device 1 ea INHALATION DAILY tamsulosin 0.4 mg capsule 0.8 mg PO QPM Patient Comments: Patient takes 1 capsule in the afternoon at 3 pm and 1 cap in the evening at 6:30 PM per patient home regimen. amlodipine 10 mg tablet 10 mg PO DAILY nitroglycerin [Nitrostat] 0.4 mg Tablet, Sublingual 0.4 mg SUBLINGUAL Q5M PRN (Reason: Chest Pain) Rx Instructions: do not exceed 3 doses per episode Referrals: Annabel Medina MD [Primary Care Provider] - Transfer Attestations Time Spent in Transfer Care: greater than 30 min Status at Transfer: Cognitive status at transfer: cognitively intact ; Quality Metrics Clinical Quality Measures [ No reported AMI, CVA or VTE this stay] Coding Level of Care Code Acute Code for Chg Fwd Diagnoses Elevated troponin R79.89 Other specified hypotension I95.89 Hypotension type: other hypotension type Acute systolic congestive heart failure I50.21 Heart failure type: systolic Heart failure chronicity: acute Left ventricular systolic dysfunction (LVSD) I51.9 Severe aortic valve stenosis I35.0 Atherosclerotic heart disease of [place] coronary artery with other forms of angina pectoris I25.118 Carotid stenosis, bilateral I65.23 Status post cardiac pacemaker procedure Z95.0 Mixed hyperlipidemia E78.2 Hyperlipidemia type: mixed hyperlipidemia Type 2 diabetes mellitus with hyperglycemia, without long-term current use of insulin E11.65 Diabetes mellitus type: type 2 Diabetes mellitus detention insulin use: without detention use Diabetes mellitus complication status: with hyperglycemia
[2023-04-20] MEDS: DOBUTamine drip 500 MG/250 ML PREMIX 8.14000000000000057 MG IV (17:45)
[2023-04-20 18:13] LABS: Partial Thromboplastin Time 50.6 SECONDS (23.9-36.7)
--- NOTE | 2023-04-20 19:00 | PC.NURSE ---
Heparin Drip: Heparin drip running @13ml/hr on arrival to shift. MAR edited for 1900 to reflect this. Per shift report w/ Ulises RN Heparin was resumed on dayshift.
--- NOTE | 2023-04-20 20:00 | PC.NURSE ---
Physicain Notification: Contacted Dr. Manzano @1942 to update on levophed @18 and Dobutamine @5, peripheral IVs only, and pt requesting a throat spray for dry mouth/throat. New order for Purdy Cantil PRN Q2HR.
[2023-04-20] MEDS: zolpidem 5 mg Tablet PO (20:07)
[2023-04-20] MEDS: saliva stimulant spray 30 mL Btl 1 SPRAY MUCOUS MEM (20:11)
[2023-04-20] MEDS: heparin 5,000 unit/mL INJ 1 mL IV (20:39)
--- NOTE | 2023-04-20 23:19 | PC.NURSE ---
Central Line: Contacted Dr. Pereira at approximately 2230 concerning IV access and current medications. New order for Central Line. Dr. Pereira at bedside @2300. Procedure explained in detail, including risks and benefits by Dr. Pereira. Pt gave verbal consent.
--- NOTE | 2023-04-20 23:38 | PM.ACPR ---
Procedure/Consent Time out: Time Out Performed: Yes Consent: Consent for Procedure: Consent obtained from patient Procedure Narrative: Central line placed due to patient needing high dose pressors, multiple drips incl levophed, dobutamine, heparin gtt, transferring to higher center, needs central line for stable access in transit Acute Procedures Central Line Placement: Right Femoral: Time out performed: Yes Patient placed on monitor/pulse ox: Yes MD prep: mask, gown and gloves Central line prep: Povidone-Iodine 1% and Chlorhexidine scrub Local anesthesia used: lidocaine 1% Amount of anesthesia used (ml): 4 Ultrasound used for placement: Yes Central line lumen inserted: triple Post procedure: sutured in place, good blood return, all ports aspirated, flushed, capped and sterile dressing applied Post procedure x-ray: other (N/A) Patient tolerated procedure: well Complications: none Epistaxis Control: Time out performed: Yes
[2023-04-20] MEDS: ondansetron 2 mg/ML SDV 2 mL 4 MG IVP (23:58)
[2023-04-21] VITALS: BP 103/58
--- NOTE | 2023-04-21 00:01 | PC.NURSE ---
Family Update: Family called @0000 (Rylie) to update on transfer.
--- NOTE | 2023-04-21 00:04 | PC.NURSE ---
EMS: Pt left via EMS @4027.
[2023-04-21 00:11] VITALS: BP 90/55; PULSE 105; RESP 20; TEMP 36.6; O2SAT 91
== END 2023-04-21 00:05 | disposition short-term general hospital (02) | DRG 280 ==
LOC: ER 18:06 → CSU 18:31 → ICU 04-20 03:18
PROVIDERS: Internal Medicine Cardiovascular Disease; Radiology Diagnostic Radiology; Student in an Organized Health Care Education/Training Program; Admitting Provider Internal Medicine; Emergency Provider Family Medicine; PCP Internal Medicine; Visit Provider Internal Medicine
DX: I13.0 Hypertensive heart and chronic kidney disease with heart failure and stage 1 through stage 4 chronic kidney disease, or unspecified chronic kidney disease (principal); I50.23 Acute on chronic systolic (congestive) heart failure; I21.A1 Myocardial infarction type 2; R57.1 Hypovolemic shock; R57.8 Other shock; R57.0 Cardiogenic shock; N13.8 Other obstructive and reflux uropathy; G61.0 Guillain-Barre syndrome; E87.1 Hypo-osmolality and hyponatremia; R64 Cachexia; K92.1 Melena; N17.9 Acute kidney failure, unspecified; N18.9 Chronic kidney disease, unspecified; E11.22 Type 2 diabetes mellitus with diabetic chronic kidney disease; E11.65 Type 2 diabetes mellitus with hyperglycemia; I25.119 Atherosclerotic heart disease of native coronary artery with unspecified angina pectoris; F17.210 Nicotine dependence, cigarettes, uncomplicated; Z95.5 Presence of coronary angioplasty implant and graft; Z53.09 Procedure and treatment not carried out because of other contraindication; N40.1 Benign prostatic hyperplasia with lower urinary tract symptoms; Z95.0 Presence of cardiac pacemaker; Z95.3 Presence of xenogenic heart valve; I65.23 Occlusion and stenosis of bilateral carotid arteries; E78.2 Mixed hyperlipidemia; J44.9 Chronic obstructive pulmonary disease, unspecified; E11.51 Type 2 diabetes mellitus with diabetic peripheral angiopathy without gangrene; M79.605 Pain in left leg; I27.20 Pulmonary hypertension, unspecified; Z68.20 Body mass index [BMI] 20.0-20.9, adult; I25.2 Old myocardial infarction; Z95.828 Presence of other vascular implants and grafts; I35.0 Nonrheumatic aortic (valve) stenosis; D63.1 Anemia in chronic kidney disease
CPT/HCPCS: 32555; 36415; 51702; 71045; 74177; 76604; 80048; 80053; 82607; 83615; 83735; 83880; 84484; 85014; 85018; 85025; 85610; 85730; 86140; 86850; 86900; 86920; 93005; 93306; 94640; 96376; 99285; C9113; J1250; J1644; J1940; J2405; P9047; Q9967